=== PATIENT | male | born 1935 | race Caucasian/White ===

== ENCOUNTER → 2017-07-18 14:20 | Outpatient (CLI) | payer MEDICARE, BC, SELFPAY ==
--- NOTE | 2017-07-18 14:26 | RAD_ITS ---
STUDY: X-RAY - LEFT KNEE REASON FOR EXAM: Male, 81 years old. Medial left knee pain. TECHNIQUE: 4 weightbearing view(s) of the knee. COMPARISON: None. 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 There is spurring at the anterior tibial tubercle. Normal visualized proximal fibula. Focal cortical excrescences are seen from the cortical margins of the proximal tibial and fibular diaphyses along the interosseous ligament. Normal patella. There is no demonstrated destructive osseous lesion or acute displaced fracture. There is mild degenerative narrowing of the medial femorotibial compartment compared to the lateral femorotibial compartment. There is chondrocalcinosis in both compartments. A small rounded calcification also seen adjacent to the medial tibial spine. Normal patellofemoral articulation. Normal proximal tibiofibular articulation. There is no demonstrated joint effusion. There is anterior prepatellar soft tissue swelling. Focal cutaneous calcifications seen in the anterior soft tissues of the proximal lower leg. RAD/Knee 4 or More Views IMPRESSION: 1. Anterior prepatellar soft tissue swelling. No demonstrated fracture. 2. 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 3. There is no demonstrated joint effusion. Electronically Signed: Gerson Alaniz MD at 18:20 EDT , Service support ,
--- NOTE | 2017-07-18 14:40 | VDLE_ITS ---
Reason For Study: edema RIGHT LEFT GSV is normal. GSV is normal. CFV is compressible, spontaneous, phasic, CFV is compressible, spontaneous, phasic, competent and demonstrates normal competent, and demonstrates normal augmentation. augmentation. FV is compressible, spontaneous, phasic, FV is compressible, spontaneous, phasic, competent and demonstrates normal competent and demonstrates normal augmentation. augmentation. POP V is compressible, spontaneous, phasic, POP V is compressible, spontaneous, phasic, competent and demonstrates normal competent and demonstrates normal augmentation. augmentation. T/P Trunk is compressible. T/P Trunk is compressible. PTV is compressible. PTV is compressible. RT PerV is compressible. LT PerV is compressible. Procedure Hypoechoic area behind the knee measuring Exam performed in department. 1.52 x 2.97 cm. Area is too large to measure The exam was diagnostic. in long. Area is nonvascular. A preliminary report was called and/or faxed to Dr. Kent. Interpretation Summary Deep veins of the lower extremities are bilaterally patent and compressible segmentally. There is no evidence of deep vein thrombosis on either side. Valvular competence appears intact within the proximal deep venous systems bilaterally. The greater saphenous veins appear bilaterally patent and compressible segmentally. A non-vascular, hypoechoic structure is noted in the left popliteal space, measuring 1.52 cm x 2.97 cm, and too large to measure in length. This probably represents a popliteal cyst. Clinical correlation is advised. Ordering Physician: Cindy Kent Performed By: Cristo Payton RVT
== END ==
PROVIDERS: Family Provider Physician Assistant; PCP Physician Assistant; Visit Provider Internal Medicine
DX: M25.562 Pain in left knee (principal); R60.0 Localized edema
CPT/HCPCS: 73564; 93970

== ENCOUNTER → 2017-07-31 13:35 | Outpatient (CLI) | payer MEDICARE, BC, SELFPAY ==
--- NOTE | 2017-08-02 11:42 | LEAS ---
Arterial Study - Arterial Study Arterial Study: Record number: [id number] Date of scan 07/31/[address] Alicia next History: Hypertension with pain in legs with walking did not do exercise study secondary noncompressibility noted in the vessel. Interpretation: Right lower extremity with pulsatile flow noted from the thigh calf ankle through the digits appears to be an adequate waveform noted duplex shows triphasic flow both vessels at the ankle the ABIs are bilateral noncompressible second a probable medial calcinosis. Digit brachial index 0.89 Left lower extremity again appears to have adequate waveform noted from the thigh down to the calf ankle out through the digits duplex shows triphasic flow both vessels at the ankle with posterior tib noncompressible dorsalis pedis 1.60 but appears probably falsely elevated dorsalis pedis and noncompressible posterior tib secondary to medial calcinosis. Digital brachial index 0.82 Impression: 1. 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 Further evaluation as clinically warranted 2. Possible mild arterial occlusive disease in the left lower extremity the KUSUM 1.6 is falsely elevated probably to the medial calcinosis with noncompressibility of the posterior tib. Duplex does show triphasic flow with an adequate waveform. Digital brachial index appears normal at 0.82. Further evaluation as clinically warranted
== END ==
PROVIDERS: Family Provider Internal Medicine; PCP Internal Medicine; Visit Provider Internal Medicine
DX: I73.9 Peripheral vascular disease, unspecified (principal); R60.0 Localized edema
CPT/HCPCS: 93923

== ENCOUNTER → 2018-08-27 | Outpatient (CLI) | payer MEDICARE, BC, SELFPAY ==
--- NOTE | 2018-08-27 13:33 | STRESSREP_ITS ---
Stress Test Report Exercise stress test. 82-year-old man with a history of chest pain and atrial bigeminy. Stress protocol: Resting EKG demonstrates normal sinus rhythm with a rate of 62 bpm normal intervals are noted resting blood pressures 140/80 mmHg. The patient exercised according to regular Donovan protocol for total duration of 6 minutes and 30 seco nds. The maximum heart rate attained was 127 bpm which was 90% of maximum predicted heart rate the maximum workload was 7.7 metabolic equivalents. The patient maintained sinus rhythm throughout the recording. At rest there were no ST or T wave changes no suggest ischemia at peak exercise upsloping ST changes only were noted with no meet the criteria for ischemia. No chest pain was noted occasional premature ventricular complex only was noted. Resting blood pressures 140/80 mmHg with a peak blood pressure 160/78 mmHg. Exercise stress test with no EKG changes for ischemia at a moderate workload. No clinical angina noted.
== END | disposition home or self-care (01) ==
LOC: CVS 11:41
PROVIDERS: Family Provider Internal Medicine; PCP Internal Medicine; Referring Provider Nurse Practitioner Gerontology; Visit Provider Nurse Practitioner Gerontology
DX: R06.02 Shortness of breath (principal); I49.8 Other specified cardiac arrhythmias
CPT/HCPCS: 93017

== ENCOUNTER → 2018-09-03 | Outpatient (CLI) | payer MEDICARE, BC, SELFPAY ==
[2015-07-30 09:14] VITALS: BMI 28.3
== END | disposition home or self-care (01) ==
LOC: PSN 09:06
PROVIDERS: Family Provider Internal Medicine; PCP Internal Medicine; Referring Provider Nurse Practitioner Gerontology; Visit Provider Nurse Practitioner Gerontology
DX: I49.8 Other specified cardiac arrhythmias (principal)
CPT/HCPCS: 93225; 93226

== ENCOUNTER → 2018-12-12 09:40 | Outpatient (CLI) | payer MEDICARE, BC, SELFPAY ==
[2018-11-14 10:05] VITALS: BMI 31.1
--- NOTE | 2018-12-12 09:42 | ECHOD_ITS ---
Reason For Study: ARRHYTHMIA Procedure This was a 2D Doppler, Color Flow transthoracic echocardiogram. The study was technically difficult. Due to arrhythmia. Exam performed in department. Left Ventricle Based upon the 2D echocardiographic views obtained there appears to be grossly normal left ventricular size, wall motion, and systolic function. The estimated ejection fraction is 55 %. No evidence for diastolic dysfunction. Right Ventricle Normal RV size. Normal systolic function. Atria Normal left atrium. Normal right atrium. Agitated saline contrast study considered positive for right to left intra-atrial shunt compatible with a small PFO versus ASD. Mitral Valve There is no mitral annular calcification. Normal mitral valve. Trivial mitral valve insufficiency. Tricuspid Valve Normal tricuspid valve. Trivial tricuspid valve insufficiency. Right ventricular systolic pressure estimated to be 25 mmHg. Aortic Valve Trisinus/trileaflet aortic valve. Normal aortic valve. Pulmonic Valve The pulmonic valve is not well visualized. Great Vessels Normal sized aortic root. Pericardium/Pleural No pericardial effusion. Medication 22 gauge I.V. with prn adaptor inserted into right arm. Performed a rapid injection of agitated mix of 9 cc saline and 1cc air to assess for atrial septal defect. MMode/2D Measurements & Calculations LVIDd: 5.5 cm IVSd: 1.1 cm Ao root diam: 3.8 cm LVIDs: 3.9 cm LVPWd: 1.0 cm RVDd: 2.8 cm FS: 29.1 % LAV(MOD-bp): 51.7 ml LA A4 area: 16.3 cm2 LA dimension(2D): 4.4 cm LAV(MOD-bp) Indexed: 23.9 ml/m2 LAV(MOD-sp2): 55.0 ml LAV(MOD-sp4): 45.1 ml RA A4 area: 11.4 cm2 Time Measurements MV dec time: 0.32 sec Doppler Measurements & Calculations MV E max rui: 47.2 cm/sec Lat Peak E' Rui: 5.6 cm/sec Med Peak E' Rui: 4.3 cm/sec MV A max rui: 96.0 cm/sec E/E' lat: 8.5 E/E' med: 11.1 MV E/A: 0.49 Ao V2 max: 105.8 cm/sec LV V1 max: 75.0 cm/sec PA V2 max: 125.7 cm/sec Ao max P.5 mmHg LV V1 max P.3 mmHg TR max rui: 236.0 cm/sec TR max P.3 mmHg Interpretation Summary The study was technically difficult. Based upon the 2D echocardiographic views obtained there appears to be grossly normal left ventricular size, wall motion, and systolic function. The estimated ejection fraction is 55 %. Trivial mitral valve insufficiency. Trivial tricuspid valve insufficiency. Right ventricular systolic pressure estimated to be 25 mmHg. No evidence for diastolic dysfunction. Ordering Physician: Elton Yap Referring Physician: Nora Larry Performed By: Estefany Dickinson, VENESSA, RVT
== END ==
PROVIDERS: Family Provider Nurse Practitioner; PCP Nurse Practitioner; Referring Provider Internal Medicine Cardiovascular Disease; Visit Provider Internal Medicine Cardiovascular Disease
DX: I49.49 Other premature depolarization (principal); I10 Essential (primary) hypertension; I73.9 Peripheral vascular disease, unspecified
CPT/HCPCS: 93306; A4216

== ENCOUNTER → 2019-08-05 12:18 | Outpatient (CLI) | payer MEDICARE, BC, SELFPAY ==
[2018-11-14 10:05] VITALS: BMI 31.1
--- NOTE | 2019-08-05 12:26 | RAD_ITS ---
STUDY: X-RAY - RIGHT KNEE REASON FOR EXAM: Male, 83 years old. CHRONIC PAIN TECHNIQUE: 4 view(s) of the knee. COMPARISON: Comparison is made with prior study dated June 30, 2015. FINDINGS: Normal visualized distal femur. Normal visualized proximal tibia and fibula. Normal proximal tibiofibular articulation. There is severe degenerative arthrosis of the medial femorotibial compartment with severe joint space narrowing. Normal lateral femorotibial compartment. There is moderate degenerative arthrosis of the patellofemoral articulation. Chondrocalcinosis of the medial and lateral menisci. There are atherosclerotic calcifications. RAD/Knee 3 Views IMPRESSION: Degenerative arthrosis. 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 Electronically Signed: Otilio Batres, at 15:39 EDT , Service support ,
== END ==
PROVIDERS: PCP Nurse Practitioner; Referring Provider Nurse Practitioner; Visit Provider Nurse Practitioner
DX: M25.561 Pain in right knee (principal)
CPT/HCPCS: 73562

== ENCOUNTER → 2019-10-01 09:35 | Outpatient (CLI) | payer MEDICARE, BC, SELFPAY ==
[2018-11-14 10:05] VITALS: BMI 31.1
--- NOTE | 2019-10-01 09:38 | CDU_ITS ---
Reason For Study: carotid artery stenosis Rt. Velocities/BP Lt. Velocities/BP Prox CCA 56.5/13.4 cm/sec. Prox CCA 78.3/13.5 cm/sec. Mid CCA 36.6/10.2 cm/sec. Mid CCA 54.2/12.4 cm/sec. Dist CCA 38.8/9.1 cm/sec. Dist CCA 59.7/11.3 cm/sec. Prox ICA 49.8/11.3 cm/sec. Prox ICA 42.1/9.1 cm/sec. Mid ICA 37.7/11.3 cm/sec. Mid ICA 32.2/12.4 cm/sec. Dist ICA 47.7/19.3 cm/sec. Dist ICA 62.9/23.4 cm/sec. Rt. ICA/CCA = 1.4. Lt. ICA/CCA = 1.2. Prox ECA 57.5/10.2 cm/sec. Prox ECA 44.3/8.0 cm/sec. Rt. Vert. 38.8/11.3 cm/sec. Lt. Vert. 34.3/9.9 cm/sec. Right Extracranial There is intimal thickening but no significant atherosclerotic plaque noted in the right common carotid artery. There is heterogeneous, irregular atherosclerotic plaque noted in the right internal carotid artery. There is heterogeneous, irregular atherosclerotic plaque noted in the right external carotid artery. Antegrade flow is noted in the right vertebral artery. Left Extracranial There is heterogeneous, irregular atherosclerotic plaque noted in the left common carotid artery. There is heterogeneous, irregular atherosclerotic plaque noted in the left internal carotid artery. There is intimal thickening but no significant atherosclerotic plaque noted in the left external carotid artery. Antegrade flow is noted in the left vertebral artery. Procedure Carotid Duplex [id number]. The exam was diagnostic. Exam performed in department. Interpretation Summary Heterogenous irregular plaque of the proximal right internal carotid artery with less than 50% stenosis <50% stenosis right external carotid Minimal irregular heterogenous plaque in the proximal left internal carotid artery with less than 50% stenosis <50% stenosis left external carotid Patent, antegrade vertebrals bilaterally Ordering Physician: Nora Larry Performed By: Cristo Payton RVT
== END ==
PROVIDERS: PCP Nurse Practitioner; Referring Provider Nurse Practitioner; Visit Provider Nurse Practitioner
DX: I65.23 Occlusion and stenosis of bilateral carotid arteries (principal)
CPT/HCPCS: 93880

== ENCOUNTER → 2020-12-07 10:52 | Outpatient (CLI) | payer MEDICARE, BC, SELFPAY ==
--- NOTE | 2020-12-07 10:56 | VDLE_ITS ---
Reason For Study: RLE PAIN RIGHT LEFT GSV is normal. GSV is normal. CFV is compressible, spontaneous, phasic, CFV is compressible, spontaneous, phasic, competent and demonstrates normal competent, and demonstrates normal augmentation. augmentation. FV is compressible, spontaneous, phasic, FV is compressible, spontaneous, phasic, competent and demonstrates normal competent and demonstrates normal augmentation. augmentation. POP V is compressible, spontaneous, phasic, POP V is compressible, spontaneous, phasic, competent and demonstrates normal competent and demonstrates normal augmentation. augmentation. T/P Trunk is compressible. T/P Trunk is compressible. PTV is compressible. PTV is compressible. RT PerV is compressible. LT PerV is compressible. Procedure This is a venous duplex using B-mode, color flow and spectral Doppler. Exam performed in department. A preliminary report was called and/or faxed to [facility] @ 11:30 am @ [phone]. VL/Venous Duplex US - Angel Extrem Interpretation Summary Deep veins of the lower extremities are bilaterally patent and compressible seg mentally. There is no evidence of deep vein thrombosis on either side. Valvular competence appears in tact within the proximal deep venous systems bilaterally. The great saphenous veins appear bila terally patent and compressible segmentally. Ordering Physician: Nora Larry Referring Physician: Nora Larry Performed By: Estefany Dickinson, RDCS, RVT
--- NOTE | 2020-12-07 11:17 | RAD_ITS ---
STUDY: X-RAY - RIGHT KNEE REASON FOR EXAM: Right knee pain for 2 days. TECHNIQUE: 4 view(s) of the knee. COMPARISON: Radiographs 08/05/2019. FINDINGS: Normal visualized distal femur. Normal visualized proximal tibia and fibula. Normal proximal tibiofibular articulation. There is severe joint space narrowing of the medial femorotibial compartment, increased since the prior study. Normal lateral femorotibial compartment. There is mild joint space narrowing of the patellofemoral articulation. There is chondrocalcinosis. There is vascular calcification. RAD/Knee 4 or More Views IMPRESSION: Arthrosis of the medial femorotibial and patellofemoral compartments. Chondrocalcinosis. Electronically Signed: Oskar Short MD at 12:33 EDT Tel , Service support ,
== END ==
PROVIDERS: PCP Nurse Practitioner; Referring Provider Nurse Practitioner; Visit Provider Nurse Practitioner
DX: M25.561 Pain in right knee (principal); M79.604 Pain in right leg
CPT/HCPCS: 73564; 93970

== ENCOUNTER 2021-06-29 08:46 | Outpatient (CLI) | payer MEDICARE, BC, SELFPAY ==
--- NOTE | 2021-06-29 08:51 | CT_ITS ---
STUDY: CT CHEST WITH CONTRAST REASON FOR EXAM: Male, 85 years old. History of bilateral pneumonia. RADIATION DOSAGE (If Supplied By Facility): CTDIvol = ( 17.22 ) mGy, DLP = ( 751.46 ) mGycm TECHNIQUE: Transaxial imaging was performed following intravenous administration of IV 100mL Isovue-300. Multiplanar coronal and sagittal images were reformatted. Individualized dose optimization techniques were used for this CT. COMPARISON: Comparison is made with prior chest radiograph dated 06/23/2021. FINDINGS: Small benign-appearing bilateral axillary lymph nodes. There is evidence of increased linear markings involving both upper and lower lobes and a preferential lateral distribution with evidence of bronchiectasis more prominent in the right upper lobe. The patient has a history of prior Covid pneumonia. This may represent postpneumonic scarring. There is no demonstrated pleural abnormality. There are calcifications of the coronary arteries. Normal mediastinum. Normal hilar regions. Normal enhanced pulmonary arteries. Normal aorta arch and descending thoracic aorta. There are multi-level degenerative changes of the thoracic spine. Small hiatal hernia. Scattered hepatic cysts. CT/Chest WITH Contrast IMPRESSION: Findings suggestive of a scarring most likely secondary to prior Covid pneumonia. Electronically Signed: Otilio Batres MD at 14:38 EDT ,
== END 2021-06-29 23:59 | disposition home or self-care (01) ==
LOC: CT 08:49
PROVIDERS: PCP Nurse Practitioner; Referring Provider Nurse Practitioner; Visit Provider Nurse Practitioner
DX: R93.89 Abnormal findings on diagnostic imaging of other specified body structures (principal); R91.8 Other nonspecific abnormal finding of lung field
CPT/HCPCS: 71260; Q9967

== ENCOUNTER 2021-09-26 16:21 | Emergency (ER) | payer MEDICARE, BC, SELFPAY ==
[2021-09-26 16:24] VITALS: BP 128/94; PULSE 74; RESP 17; TEMP 36.6; O2SAT 95; BMI 29.4
--- NOTE | 2021-09-26 16:41 | EX.ED.VIS.EY ---
HPI History of Present Illness Chief Complaint: Eye Problem Informant: patient Onset/Context/Timing Location: Right Eye Onset: Today Current Severity: Mild Maximum Severity: Mild Narrative Narrative: Patient presents after being poked in the right eye by a pine tree. He has some mild redness and watering. He does not normally wear glasses or contacts. He denies vision change. [facility] Medical History Atrial bigeminy Essential hypertension Premature atrial contractions PVD (peripheral vascular disease) Sleep apnea Home Medications aspirin 81 mg tablet,delayed release (Adult Low Dose Aspirin) 81 mg PO DAILY 11/09/18 [History Last Taken Unknown] metoprolol succinate 25 mg tablet,extended release 24 hr 25 mg PO DAILY 11/09/18 [History Last Taken Unknown] Allergy/AdvReac Type Severity Reaction Status Date / Time lisinopril AdvReac Severe cough Verified 09/26/21 16:22 Family History Father Emphysema of lung Mother Dena Gehrigs disease Surgical History History of cholecystectomy History of left knee replacement Social History Smoking Status: Never smoker alcohol intake: current details: occasional substance use type: does not use caffeine: Yes Type: coffee Number of servings: 1 ROS ROS ED Constitutional Constitutional ED: Denies chills or fever(s) Eyes Eyes: Reports other Details: Right eye irritation and redness ; Denies change in vision ENT ENT ED: Denies rhinorrhea or sore throat Cardiovascular Cardiovascular: Denies chest pain or palpitations Respiratory/Chest Respiratory/Chest: Denies cough or dyspnea Gastrointestinal Gastrointestinal: Denies abdominal pain, diarrhea, nausea or vomiting Genitourinary Genitourinary ED: Denies difficulty urinating or dysuria Musculoskeletal Musculoskeletal: Denies back pain or extremity pain Integumentary Denies Abrasions or rash Neurologic Neurologic: Denies headache(s) or weakness Allergic/Immunologic Allergic/Immunologic ED: Denies lip swelling or urticaria EXAM Physical Exam Const Vital Signs: 09/26/21 16:24 Temperature 97.8 F Temperature Source Oral Pulse Rate 74 Respiratory Rate 17 Blood Pressure 128/94 H Blood Pressure Mean 105 Pulse Ox 95 Oxygen Delivery Method Room Air Positive well nourished and well developed General Appearance ED: well developed Eyes Eyes Narrative: Right eye injection with mild watering. Pupils equal and reactive. Extraocular movements fully intact. Resp normal respiratory effort and no retractions Cardio regular rate and regular rhythm GI non-tender Extremity normal to inspection Neuro oriented x3 MDM MDM MDM Narrative Medical decision making narrative: Tetracaine drops were applied to the right eye. This does improve the patient's pain. Eye is examined under slit-lamp with no evidence of foreign body. Fluorescein is applied. Patient has a very small uptake noted in the lower outer quadrant of the eye. Patient be covered with gentamicin eyedrops. Return instructions provided. Discharge Plan Triage Chief Complaint: Eye Problem ED Provider: Flaca Livingston Dx/Rx/DC Orders Clinical Impression: Corneal abrasion Instructions: ED Corneal Abrasion Prescriptions: No Action aspirin [Adult Low Dose Aspirin] 81 mg tablet,delayed release (DR/EC) 81 mg PO DAILY metoprolol succinate 25 mg tablet extended release 24 hr 25 mg PO DAILY Primary Care Provider: Cindy Kent Referrals: Cindy Kent DO [Primary Care Provider] - Activity Restrictions/Additional Instructions: As discussed, please use 2 drops of gentamicin 4 times a day in affected eye until symptoms resolved for full 24 hours. Disposition Disposition: Home, Self Care
[2021-09-26] MEDS: Gentamicin Sulfate 1 OPTH.BTL 2 DRP RIGHT EYE (17:10)
[2021-09-26] MEDS: Tetracaine 0.5% Ophthalmic Bottle 1 DRP RIGHT EYE (17:10)
[2021-09-26] MEDS: Fluorescein 1 MG STRIP 1 STRIP RIGHT EYE (17:10)
== END 2021-09-26 17:13 | disposition home or self-care (01) ==
PROVIDERS: Emergency Provider Emergency Medicine; PCP Internal Medicine; Visit Provider Emergency Medicine
DX: S05.01XA Injury of conjunctiva and corneal abrasion without foreign body, right eye, initial encounter (principal); I10 Essential (primary) hypertension; Z79.899 Other long term (current) drug therapy; Z79.82 Long term (current) use of aspirin; W22.8XXA Striking against or struck by other objects, initial encounter
CPT/HCPCS: 99283

== ENCOUNTER 2021-12-27 06:57 | Emergency (ER) | payer MEDICARE, BC, SELFPAY ==
[2021-12-27] VITALS (14 sets, daily range): BP systolic 58–194; BP diastolic 47–99; PULSE 64–84; RESP 16–19; TEMP 35.7–35.9; O2SAT 92–100; BMI 30.2
--- NOTE | 2021-12-27 06:58 | CT_ITS ---
We are attempting to reach an attending provider to discuss findings. An addendum with communication details will be sent when the communication is complete. EXAM: CT HEAD WITHOUT INTRAVENOUS CONTRAST CLINICAL INDICATION: Neuro deficit, acute, stroke suspected TECHNIQUE: Multiple axial images were obtained of the head without intravenous contrast. This CT exam was performed using one or more of the following dose reduction techniques: automated exposure control, adjustment of the mA and/or kV according to patient size, and/or use of iterative reconstruction technique. This report was created using [employer] report [employer] technology. RADIATION DOSE: CTDIvol = 44.99 mGy, DLP = 812.98 mGy-cm. COMPARISON: None. FINDINGS: BRAIN AND EXTRA-AXIAL SPACES: Mild diffuse cerebral volume loss. No intra- or extra-axial hemorrhage. No evidence of acute infarct. No intracranial mass or mass effect. There is preservation of the amaya/white matter interface. Posterior fossa structures are unremarkable. Ventricles are appropriate for age. No hydrocephalus. Basal cisterns are patent. BONES/JOINTS: Unremarkable. No discrete lytic or blastic abnormalities. VASCULATURE: Moderate cavernous and proximal supraclinoid ICA calcifications. SINUSES: Unremarkable as visualized. Clear. MASTOID AIR CELLS: Unremarkable. Clear. ORBITS: Visualized globes, extraocular muscles, optic nerves and retrobulbar fat appear unremarkable. CT/STROKE Brain/Head without Cont IMPRESSION: Hyperdense appearance of left M2 proximal branch at the sylvian fissure, correlate with right-sided weakness. Otherwise no suspicious findings. Electronically Signed: Meera Bolaños MD at 7:15 EDT ,
--- NOTE | 2021-12-27 06:58 | EKG12_ITS ---
Test Reason : POSS STROKE Blood Pressure : / mmHG Vent. Rate : 066 BPM Atrial Rate : 066 BPM P-R Int : 188 ms QRS Dur : 098 ms QT Int : 432 ms P-R-T Axes : 031 -24 -43 degrees QTc Int : 452 ms Normal sinus rhythm Nonspecific ST and T wave abnormality Poor R wave progression Abnormal ECG Confirmed by SINCERE SARGENT, TRAE ([id number]), technical writer and editor GENNARO MONAHAN ([id number]) on 12/29/2021 9:19:55 AM Referred By: STACI Confirmed By:TARE POST MD
--- NOTE | 2021-12-27 06:59 | CT_ITS ---
EXAM: CT ANGIOGRAPHY HEAD AND NECK WITH INTRAVENOUS CONTRAST CLINICAL INDICATION: Neuro deficit, acute, stroke suspected TECHNIQUE: [place]/head and neck CT angiography protocol performed with intravenous contrast. This CT exam was performed using one or more of the following dose reduction techniques: automated exposure control, adjustment of the mA and/or kV according to patient size, and/or use of iterative reconstruction technique. This report was created using [employer] report generation technology. MIP reconstructed images were created and reviewed. RADIATION DOSE: CTDIvol = 24.79 mGy, DLP = 859.26 mGy-cmContrast: IV 100mL [id number] COMPARISON: None. FINDINGS: HEAD: RIGHT ANTERIOR CEREBRAL ARTERY: Unremarkable. No significant stenosis at the visualized segments. Anterior communicating artery is present. No aneurysm. RIGHT MIDDLE CEREBRAL ARTERY: Unremarkable. No significant stenosis at the visualized segments. No aneurysm. RIGHT POSTERIOR CEREBRAL ARTERY: Unremarkable. No occlusion or significant stenosis. No aneurysm. RIGHT INTRACRANIAL INTERNAL CAROTID ARTERY: Peripheral long segmental circumferential calcification of the artery without high-grade stenosis. RIGHT INTRACRANIAL VERTEBRAL ARTERY: Unremarkable. No significant stenosis. No dissection or occlusion. LEFT ANTERIOR CEREBRAL ARTERY: Unremarkable. No significant stenosis at the visualized segments. No aneurysm. LEFT MIDDLE CEREBRAL ARTERY: Abrupt occlusion cut off of contrast in the distal left M1 segment and only a small enhancing inferior left lenticulostriate branches and some slight collateral flow in the mid to posterior left M2 branch in the mid to posterior sylvian fissure. LEFT POSTERIOR CEREBRAL ARTERY: Unremarkable. No occlusion or significant stenosis. No aneurysm. LEFT INTRACRANIAL INTERNAL CAROTID ARTERY: Peripheral calcification without significant narrowing of the cavernous/supraclinoid ICA. LEFT INTRACRANIAL VERTEBRAL ARTERY: Unremarkable. No significant stenosis. No dissection or occlusion. BASILAR ARTERY: Unremarkable. No significant stenosis. No aneurysm. OTHER VASCULATURE: No vascular malformation. NECK: RIGHT COMMON CAROTID ARTERY: Moderate coarse calcified plaque at the carotid bulb with roughly 30% narrowing. RIGHT EXTRACRANIAL INTERNAL CAROTID ARTERY: Calcified plaque at its origin with roughly 30% narrowing. RIGHT EXTERNAL CAROTID ARTERY: Calcified plaque at its origin with no significant narrowing. RIGHT EXTRACRANIAL VERTEBRAL ARTERY: Unremarkable. No significant stenosis. No dissection or occlusion. LEFT COMMON CAROTID ARTERY: Mild calcified plaque at the bulb, no significant narrowing, mild calcified plaque in the mid left CCA. LEFT EXTRACRANIAL INTERNAL CAROTID ARTERY: Mild mixed density plaque of the proximal left ICA, no significant narrowing. LEFT EXTERNAL CAROTID ARTERY: Unremarkable. No occlusion. LEFT EXTRACRANIAL VERTEBRAL ARTERY: Unremarkable. No significant stenosis. No dissection or occlusion. GREAT VESSELS OF AORTIC ARCH: Unremarkable as visualized. Normal anatomy, patent. LUNG APICES: Unremarkable as visualized. HEAD and NECK: BONES/JOINTS: Unremarkable. No discrete lytic or blastic abnormalities. SOFT TISSUES: Unremarkable. CAROTID STENOSIS REFERENCE USING NASCET CRITERIA: % ICA stenosis = (1 - narrowest ICA diameter/diameter of distal cervical ICA) x 100. Mild - <50% stenosis. Moderate - 50-69% stenosis. Severe - 70-94% stenosis. Near occlusion - 95-99% stenosis. Occluded - 100% stenosis. CT/STROKE CTA Head AND Neck W/Con IMPRESSION: Abrupt occlusion of the distal left M1 segment proximal to the M2 bifurcation. Presumed thrombus. Mild collateral flow in the M2 branches. No high-grade stenosis in the neck. Moderate plaque. Findings were discussed with the referring physician prior to completion of the dictation. N.B. : The above Results were Read Back by Meera Bolaños MD to , AA, and understanding confirmed on 12/27/2021 07:33:26 (ET). Electronically Signed: Meera Bolaños MD at 7:37 EDT ,
[2021-12-27] MEDS: Etomidate 20 MG/10 ML Vial IV (07:11)
[2021-12-27] MEDS: Rocuronium Bromide 50 MG/5 ML Vial IV (07:12)
--- NOTE | 2021-12-27 07:17 | NURSING ---
STROKE ALERT CALLED [phone]
[2021-12-27] MEDS: Propofol 10MG/Ml 1,000 MG/100 ML Bottle 5.7 MG CONT INF (07:18)
[2021-12-27] MEDS: Labetalol (Prefilled) 20 MG/4 ML IV (07:20)
[2021-12-27] MEDS: Propofol 200 MG/20 ML Vial 60 MG IV BOLUS (07:21)
--- NOTE | 2021-12-27 07:21 | EDS_ITS ---
HPI History of Present Illness Chief Complaint: Neuro S/Sx Detail of Chief Complaint: Nonverbal, eyes deviated to the left, not using right upper extremity Informant: family and EMS Onset/Context/Timing Onset: Hours (0530) Context: Sudden Onset Timing: Continuous Quality and Location: Positive for Right Arm Weakness, Right Leg Weakness and Expressive Aphasia Onset: 05 Current Severity: Severe Maximum Severity: Severe Worsened by: Nothing Relieved by: Not Narrative Narrative: Patient is an 86-year-old male with history of hypertension who collapsed at 0530. He awoke from sleep at 0500. He awoke with no deficits. He apparently fell. He was thrashing. Upon arrival patient is nonverbal. Eyes are deviated to the left. He is not using his right upper extremity. Concern patient has an intracranial hemorrhage or a large occlusive stroke. Patient was taken immediately to radiology suite for CT and CTA of the head and neck. CT of the head did not reveal hemorrhage. tPA was ordered. Consent was obtained from son. He understands risk benefits. Prior similar symptoms: No Recent Illness/Hospitalization: No PFSH PFSH Medical History Atrial bigeminy Essential hypertension Premature atrial contractions PVD (peripheral vascular disease) Sleep apnea Home Medications aspirin 81 mg tablet,delayed release (Adult Low Dose Aspirin) 81 mg PO DAILY 11/09/18 [History Last Taken Unknown] metoprolol succinate 25 mg tablet,extended release 24 hr 25 mg PO DAILY 11/09/18 [History Last Taken Unknown] Allergy/AdvReac Type Severity Reaction Status Date / Time lisinopril AdvReac Severe cough Verified 12/27/21 07:29 Family History Father Emphysema of lung Mother Dena Gehrigs disease Surgical History History of cholecystectomy History of left knee replacement Social History (Updated 12/27/21 @ 07:[address] Adam Grant MD) household members: spouse Smoking Status: Never smoker alcohol intake: current details: occasional substance use type: does not use caffeine: Yes Type: coffee Number of servings: 1 ROS ROS ED Review of Systems ROS Unobtainable: due to mental status EXAM Physical Exam Const Vital Signs: 12/27/21 07:12 12/27/21 07:14 12/27/21 07:19 Temperature Temperature Source Pulse Rate 70 Respiratory Rate 18 Respiratory Depth Blood Pressure 194/99 H Blood Pressure Mean 130 Blood Pressure Source Blood Pressure Position Blood Pressure Location Pulse Ox 97 100 Oxygen Delivery Method Room Air Ambu-Bag Oxygen Flow Rate (L/min) 15 Fraction of Inspired Oxygen (FIO2) 12/27/21 07:23 12/27/21 07:15 12/27/21 07:33 Temperature 96.3 F L Temperature Source Core Pulse Rate 66 70 Respiratory Rate 16 16 Respiratory Depth Blood Pressure 122/69 H 194/99 H 58/47 L Blood Pressure Mean 130 50 Blood Pressure Source Monitor Monitor Blood Pressure Position Supine Supine Blood Pressure Location Right Arm Right Arm Pulse Ox 95 94 Oxygen Delivery Method Room Air Mechanical Ventilator Oxygen Flow Rate (L/min) Fraction of Inspired Oxygen (FIO2) 40 12/27/21 07:39 12/27/21 07:45 12/27/21 07:46 Temperature 96.5 F L 96.6 F L Temperature Source Temporal Core Pulse Rate 68 Respiratory Rate 16 Respiratory Depth Normal Blood Pressure 98/65 Blood Pressure Mean 76 Blood Pressure Source Monitor Blood Pressure Position Supine Blood Pressure Location Right Arm Pulse Ox 94 95 Oxygen Delivery Method Mechanical Ventilator Mechanical Ventilator Oxygen Flow Rate (L/min) Fraction of Inspired Oxygen (FIO2) 40 12/27/21 07:50 12/27/21 07:55 12/27/21 08:03 Temperature 96.6 F L 96.5 F L 96.3 F L Temperature Source Core Core Core Pulse Rate 65 66 66 Respiratory Rate 16 16 19 H Respiratory Depth Blood Pressure 105/77 149/90 H 165/84 H Blood Pressure Mean 86 109 111 Blood Pressure Source Monitor Monitor Monitor Blood Pressure Position Supine Supine Supine Blood Pressure Location Right Arm Right Arm Right Arm Pulse Ox 96 97 98 Oxygen Delivery Method Mechanical Ventilator Mechanical Ventilator Mechanical Ventilator Oxygen Flow Rate (L/min) Fraction of Inspired Oxygen (FIO2) 40 40 40 Positive well nourished, well developed and obese Constitutional Narrative: Patient is drooling. His eyes are deviated to the left. He turns to the left. There is no movement right upper extremity to noxious stimuli. He attempts to move his right lower extremity. He does withdraw to noxious stimuli on the left. In the radiology suite patient was noted to have Jovon-Peoples respiration. General Appearance ED: well developed; Negative for NAD Nutritional Appearance: obese HEENT Reports moist mucous membranes atraumatic Nose: other Other Details: Ears normal. Nares patent. Teeth normal. Uvula midline. Eyes Negative for PERRL or EOMs intact bilaterally Eyes Narrative: Pupils 1 to 2 mm size. Eyes deviated to the left. There is nystagmus noted with fast component to the right. Nystagmus horizontal. Neck no lymphadenopathy, supple and no JVD Chest Wall inspection of chest normal and palpation of chest normal Resp normal respiratory effort and clear to auscultation bilaterally Cardio no murmurs Rate: regular rate Rhythm: regular rhythm Heart Sounds: S1 normal and S2 normal GI normal to inspection, nondistended, normoactive bowel sounds, soft to palpation, non-distended and no masses Narrative: Normal external genitalia Back/Spine Back/Spine Narrative: Normal inspection Extremity normal to inspection Neuro No oriented x3, No CN's II-XII intact bilaterally and No no sensory deficits noted Neuro Narrative: Bilateral Babinski sign. [place] Coma Scale: document GCS findings None Withdraws to Pain None 6 Gait (Neuro): Negative for normal gait Psych Psych Narrative: Unable to assess Skin no wounds General Skin Exam: Negative for jaundice Lesions: no lesions Rashes: no rashes NIHSS NIHSS Initial: 1a Level of Consciousness: 3 1b LOC Questions (Score 2 if aphasic/stupor): 2 1c LOC Commands (Only score 1st attempt): 2 2 Best Gaze (If aphasic, use reflexive mvmts.): 2 3 Visual: 0 4 Facial Palsy: 1 5 Motor Arm Right (UN = amputation/fusion): 0 5 Motor Arm Left: 0 6 Motor Leg Right: 3 6 Motor Leg Left: 0 7 Limb ataxia (Only + if out of proportion): UN 8 Sensory (Aphasia/stupor=0 or 1, coma=2): 2 9 Best Language: 3 10 Dysarthria (mute, coma=2, intubated=UN): 2 Total Score: 20 MDM [facility] Lab Data Attestation: I reviewed the patient's lab results. Lab results narrative: Patient arrived nonverbal with eyes deviated to the left. Head was turned to the left. There is no movement left upper extremity. Patient was taken straight from ambulance bay to radiology suite. CT without contrast revealed no bleed. tPA was ordered. Discussed case with Dr. Baca who informed me that patient has a dense lesion in the left M1 distribution. Agrees with ordering tPA. Spoke with transfer nurse who accepted patient. The ER physician excepting is Dr. Alford. Patient's initial blood pressure was elevated. Patient's pressure improved after labetalol and propofol. He was placed on a propofol drip since he was chemically paralyzed. Since he had a drop in blood pressure fluid bolus was administered. Spoke with Irasema Gerber. They informed us ETA is 20 minutes. Patient propofol drip was discontinued since his blood pressure remained low on repeat reading. Liter of normal saline was ordered. At 0742 blood pressure 65/50. Levophed drip was ordered. Son was informed of the CTA results and present concerns. Blood pressure at 0745 is 98/65. Systolic blood pressure at 0755 is 149. Patient has minimal agitation at this time. A fentanyl drip was ordered. Laboratory studies are unremarkable. Labs: Laboratory Results - last 24 hr 12/27/21 12/27/21 06:48 06:48 WBC 8.5 RBC 4.59 L Hgb 15.1 Hct 44.5 MCV 96.9 H MCH 32.9 H MCHC 33.9 RDW Std Deviation 47.2 H RDW Coeff of Anny 13.3 Plt Count 216 MPV 9.7 Immature Gran % (Auto) 0.900 Neut % (Auto) 45.9 L Lymph % (Auto) 40.8 [place] % (Auto) 9.2 Eos % (Auto) 2.6 Baso % (Auto) 0.6 Absolute Neuts (auto) 3.9 Absolute Lymphs (auto) 3.45 Nucleated RBC % 0 Sodium 139 Potassium 3.5 Chloride 105 Carbon Dioxide 25.0 Anion Gap 9 BUN 25 H Creatinine 0.85 Estim Creat Clear Calc 66.80 Est GFR (MDRD) Af Amer 111 Est GFR (MDRD) Non-Af 92 BUN/Creatinine Ratio 29.5 H Glucose 180 H Calcium 8.9 Troponin I High Sens 6 Radiography Diagnostic Testing: Clinical Impression(s) from Imaging Studies Brain CT 12/27/21 06:58 IMPRESSION: Hyperdense appearance of left M2 proximal branch at the sylvian fissure, correlate with right-sided weakness. Otherwise no suspicious findings. Electronically Signed: Meera Bolaños MD at 7:15 EDT , ADDENDUM: 12/27/21 0725 IMPRESSION: undefined Head/Neck CTA 12/27/21 06:59 IMPRESSION: Abrupt occlusion of the distal left M1 segment proximal to the M2 bifurcation. Presumed thrombus. Mild collateral flow in the M2 branches. No high-grade stenosis in the neck. Moderate plaque. Findings were discussed with the referring physician prior to completion of the dictation. N.B. : The above Results were Read Back by Meera Bolaños MD to , AA, and understanding confirmed on 12/27/2021 07:33:26 (ET). Electronically Signed: Meera Bolaños MD at 7:37 EDT , ADDENDUM: 12/27/21 0744 IMPRESSION: Abrupt occlusion of the distal left M1 segment proximal to the M2 bifurcation. Presumed thrombus. Mild collateral flow in the M2 branches. No high-grade stenosis in the neck. Moderate plaque. Findings were discussed with the referring physician prior to completion of the dictation. N.B. : The above Results were Read Back by Meera Bolaños MD to , AA, and understanding confirmed on 12/27/2021 07:33:26 (ET). Electronically Signed: Meera Bolaños MD at 7:37 EDT , ADDENDUM: 12/27/21 0749 IMPRESSION: undefined EKG Initial EKG: Attestation: I personally reviewed and interpreted this EKG as follows: Interpretation: Sinus Rhythm (Ventricular rate is 66. NM interval is 108 ms. QS duration 98 ms. QT duration 432 ms. [place] is normal. There is artifact which the computer is reading as ST and T wave abnormality.) Prior EKG tracings: not available for review Stroke Documentation Questions Stroke Team Activated: Yes Reviewed Inclusion/Exclusion criteria: Yes Was Patient considered for Endovascular Intervention?: Yes-CTA +,PT transferred for further eval of endovascular intervention IV Alteplase (t-PA) Administered: Yes No contraindications for IV Alteplase (t-PA) administration.: Yes Alteplase (t-PA) risks, benefits, alternative discussed: Yes Procedures Intubations Intubation Method: orotracheal (Patient received 20 mg of etomidate. Patient's jaw remained clutch. He was administered 50 mg of rocuronium. He was easily orotracheal intubated with a 7.5 endotracheal tube using glide scope on first attempt. There was appropriate color change.) Intubation Verification: Positive color change and Bilateral breath sounds confirmed Intubation Complications: no complications Other Procedures Procedure(s): 1. Singh per nursing staff 2. Second IV per nursing staff 3. Orogastric tube per nursing staff Critical Care Time Critical Care Time: Yes Critical care time (excluding procedures): 30-74 minutes (32 minutes), Including time spent: (History, physical, documentation, review of prior records, review of allergies, bedside care), Discussing w/Patient &/or Family/Geopolitics Teacher, Discussing w/Consultants (Dr. 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
[2021-12-27 07:22] LABS: Absolute Lymphocyte Count 3.45 X10^3/uL (0.83-4.51); Absolute Neutrophil Count 3.9 X10^3/uL (2.0-7.7); Basophil# 0.05 X10^3/uL; Basophil% 0.6 % (0-1); Eosinophil# 0.22 X10^3/uL; Eosinophils% 2.6 % (0-5); Hematocrit 44.5 % (40-54); Hemoglobin 15.1 g/dL (13.0-16.5); Lymphocyte # 3.45 X10^3/ul (0.83-4.51); Lymphocyte % 40.8 % (19-41); Mean Corp Hgb Conc 33.9 g/dL (32-36); Mean Corpuscular Hgb 32.9 pg (27.0-32.0); Mean Corpuscular Volume 96.9 fL (80-94); Mean Platelet Vol. 9.7 fl (6.2-12.0); Monocyte# 0.78 X10^3/uL; Monocyte% 9.2 % (0-10); NRBC Flagged by Analyzer 0 % (0-5); Neutrophil # 3.88 X10^3/uL (2.7-7.7); Neutrophil % 45.9 % (47-70); Platelet Count 216 K/mm3 (150-450); RBC Distribution Width CV 13.3 % (11.6-14.6); RBC Distribution Width SD 47.2 fl (35.1-43.9); Red Blood Count 4.59 M/mm3 (4.6-6.2); White Blood Count 8.5 K/mm3 (4.4-11.0)
--- NOTE | 2021-12-27 07:24 | NURSING ---
ETA 20 TO 25
[2021-12-27] MEDS: 0.9% Normal Saline 1,000 ML 999 ML IV (07:26)
[2021-12-27 07:36] LABS: Anion Gap 9 (5-15); BUN 25 mg/dL (7-18); BUN/Creat Ratio 29.5 RATIO (10-20); Calcium,Total 8.9 mg/dL (8.5-10.1); Chloride 105 mmol/L (98-107); Creatinine, Serum 0.85 mg/dL (0.70-1.30); EST Glomerular Filtration Rate 92 mL/min (>60); Est Glom Filt Rate - Afr Amer 111 mL/min (>60); Glucose 180 mg/dL (74-106); Potassium 3.5 mmol/L (3.5-5.1); Sodium Level 139 mmol/L (136-145); Troponin-I HS 6 pg/mL (3.0-78.0)
[2021-12-27] MEDS: Glucagon 1 MG/ML Syringe IV (07:41)
--- NOTE | 2021-12-27 07:52 | ED.RN ---
ORIGINAL BLOOD PRESSURE CONTROL DR. OCASIO WANTED BOLUS OF 60 MG PROPOFOL AND THEN GIVE LABETAOLOL
--- NOTE | 2021-12-27 08:03 | ED.RN ---
[facility] AT THE BEDSIDE AND ASSUMING CARE AT THIS TIME
[2021-12-27 08:16] LABS: International Normalized Ratio 1.1
[2021-12-27 08:17] LABS: Partial Thromboplast Time 29.1 Seconds (24.1-36.2)
[2021-12-27 08:34] LABS: CPK Total, Creatine Kinase 72 U/L (39-308); Triglycerides 107 mg/dL
== END 2021-12-27 08:29 | disposition short-term general hospital (02) ==
PROVIDERS: Emergency Provider Emergency Medicine; PCP Internal Medicine; Visit Provider Emergency Medicine
DX: I63.512 Cerebral infarction due to unspecified occlusion or stenosis of left middle cerebral artery (principal); I73.9 Peripheral vascular disease, unspecified; I10 Essential (primary) hypertension; G47.30 Sleep apnea, unspecified; Z79.899 Other long term (current) drug therapy; Z79.82 Long term (current) use of aspirin; R29.720 NIHSS score 20
CPT/HCPCS: 31500; 51702; 70450; 70496; 70498; 80048; 82550; 84478; 84484; 85025; 85610; 85730; 87811; 93005; 94002; 96365; 96368; 96375; 99251; 99285; J2997; J7030; J7050; Q9967; A4216; G0463; J1610; J3010; J3490

== ENCOUNTER 2022-01-13 14:00 | Inpatient (IN) | payer MEDICARE, BC, SELFPAY ==
[2022-01-13 14:40] VITALS: BMI 25.8
[2022-01-13 16:46] VITALS: BP 113/74; PULSE 86; RESP 18; TEMP 36.5; O2SAT 93
[2022-01-13] MEDS: FLU VACC QS2022-23(6MOS UP)/PF 60 MCG/0.5 ML SYRINGE IM (17:22)
[2022-01-13 17:52] VITALS: O2SAT 99
[2022-01-13 17:58] VITALS: BMI 25.8
[2022-01-13] MEDS: Budesonide Respules 0.5 MG/2 ML AMPUL.NEB. INHALATION (19:40)
[2022-01-13 19:43] VITALS: PULSE 89; RESP 16; O2SAT 98
[2022-01-13 21:54] VITALS: BP 128/76; PULSE 98; RESP 18; TEMP 37.2; O2SAT 93
[2022-01-13] MEDS: Jevity 1.5. 1,000 ML Bottle 336 ML GT (21:58)
[2022-01-13 21:59] VITALS: BP 128/76; PULSE 98
[2022-01-13] MEDS: Atorvastatin Calcium 40 MG Tablet GT (21:59)
[2022-01-13] MEDS: Metoprolol Tartrate 25 MG Tablet GT (21:59)
[2022-01-13] MEDS: Doxazosin 4 MG Tablet 2 MG GT (21:59)
[2022-01-13] MEDS: Pantoprazole Sodium 40 MG Tablet PO (21:59)
[2022-01-13 22:00] VITALS: O2SAT 89
--- NOTE | 2022-01-13 22:38 | NURSING ---
Bladder scan showed 509ml, pt given and assisted with urinal, unable to void, straight cathed for 550ml dark jesusita urine. Pt tolerated well, will continue to monitor.
[2022-01-14] VITALS (8 sets, daily range): BP systolic 88–139; BP diastolic 48–82; PULSE 59–119; RESP 18–20; TEMP 36.8–37; O2SAT 93–97; BMI 25.8
[2022-01-14] MEDS: Jevity 1.5. 1,000 ML Bottle 336 ML GT ×5 (02:37→21:49)
[2022-01-14 05:55] LABS: Absolute Lymphocyte Count 2.52 X10^3/uL (0.83-4.51); Basophil# 0.06 X10^3/uL; Basophil% 0.5 % (0-1); Eosinophil# 0.19 X10^3/uL; Eosinophils% 1.5 % (0-5); Hematocrit 39.8 % (40-54); Hemoglobin 13.8 g/dL (13.0-16.5); Lymphocyte # 2.52 X10^3/ul (0.83-4.51); Lymphocyte % 19.4 % (19-41); Mean Corp Hgb Conc 34.7 g/dL (32-36); Mean Corpuscular Hgb 34.5 pg (27.0-32.0); Mean Corpuscular Volume 99.5 fL (80-94); Mean Platelet Vol. 9.8 fl (6.2-12.0); Monocyte# 1.02 X10^3/uL; Monocyte% 7.9 % (0-10); NRBC Flagged by Analyzer 0 % (0-5); Neutrophil % 69.4 % (47-70); Platelet Count 264 K/mm3 (150-450); RBC Distribution Width CV 12.9 % (11.6-14.6); RBC Distribution Width SD 47.3 fl (35.1-43.9)
[2022-01-14 06:26] LABS: ALB/GLOB Ratio 0.6 RATIO (0.9-2.4); AST(SGOT) 24 U/L (15-37); Alanine Aminotransfer ALT/SGPT 43 U/L (16-61); Albumin, Serum 2.2 g/dL (3.2-5.0); Alkaline Phosphatase 75 U/L (45-117); Anion Gap 7 (5-15); BUN 30 mg/dL (7-18); BUN/Creat Ratio 39.8 RATIO (10-20); Calcium,Total 7.8 mg/dL (8.5-10.1); Chloride 103 mmol/L (98-107); Creatinine, Serum 0.75 mg/dL (0.70-1.30); EST Glomerular Filtration Rate 105 mL/min (>60); Est Glom Filt Rate - Afr Amer 127 mL/min (>60); Estimated Creatinine Clearance 60.36 ml/min; Globulin 3.5 g/dL (2.2-4.2); Glucose 230 mg/dL (74-106); Magnesium 2.4 mg/dL (1.6-2.6); Phosphorus 2.7 mg/dL (2.5-4.9); Potassium 3.8 mmol/L (3.5-5.1); Protein, Total 5.7 g/dL (6.4-8.2); Sodium Level 137 mmol/L (136-145)
[2022-01-14] MEDS: Budesonide Respules 0.5 MG/2 ML AMPUL.NEB. INHALATION (07:25)
[2022-01-14] MEDS: Aspirin 81 MG TAB.CHEW GT (08:24)
[2022-01-14] MEDS: Doxazosin 4 MG Tablet 2 MG GT ×2 (08:24→21:44)
[2022-01-14] MEDS: Metoprolol Tartrate 25 MG Tablet GT ×2 (08:25→22:06)
[2022-01-14] MEDS: hydroCHLOROthiazide 12.5mg 12.5 MG GT (08:25)
--- NOTE | 2022-01-14 10:43 | CASEMGMT ---
Social Work Pt unable to complete assessment. Left message with . Dione Mcneill, BONE DRIER OPERATOR MANAGER OF PRODUCTION
--- NOTE | 2022-01-14 14:42 | HP.PCM_ITS ---
[facility] - General General Date of Admission: 01/13/22 Date of Service: 01/14/22 Chief Complaint: Debility due to ischemic CVA. HPI Narrative CURTIS العراقي, is a 86 YO M with a past medical history of hypertension, hyperlipidemia, peripheral vascular disease, atrial bigeminy, sleep apnea (he refuses CPAP) and premature atrial contractions. Mr. العراقي presented to the emergency department at [facility] on 12/27/2021 with right upper extremity weakness, aphasia and eyes deviated to the left. The initial NIH score was 20. Stat noncontrast CT of the brain showed no acute findings. CTA of the head and neck showed proximal occlusion of the distal left M1 segment proximal to the M2 bifurcation. There was presumed thrombus. There was no high-grade stenosis in the neck but he did have moderate plaque. Teleneurology was consulted and tPA was recommended and given. He was transferred to [facility] for large vessel occlusion and possible neuroradiology intervention to remove the thrombus. Upon arrival to [facility] his NIH was 28. A stat CT head showed early hypoattenuation in the left insula. He went directly to the OR for intervention and achieved TICI 2c revascularization. A CT head 24 hours following tPA showed an evolving infarct in the left MCA distribution now involving the majority of the parenchyma in a vascular distribution. He also had some hemorrhagic transformation. CTA of the head/neck on 12/30/2021 showed no significant stenosis of the major arteries of the brain and neck. The previously occluded left M1 MCA segment was now patent. Echocardiogram was done at [facility] and showed a normal EF at 55 to 60%. There was no thrombus noted and no significant valvular heart disease. His LDL was 98 and the hemoglobin A1c was 5.8. EEG on 12 31 was negative for seizure activity. He had a FEES that showed vocal cord adduction with minimal glottic space. No acute intervention by ENT was required. He had persistent severe dysphagia and failed his MBS. PEG tube was placed on 01/11/2022. He was evaluated by PT/OT/ST and transfer to inpatient rehab was recommended. On 01/13/2022 he was transferred to the acute inpatient rehab unit at [facility] for 3 hours of therapy daily to restore f unction/independence at or near his level prior to the stroke. While at [facility] he experienced urine retention and was started on doxazosin 2 mg on 12/30/2021. He also had a trial of CPAP at [facility] and failed to tolerate. 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 All paperwork from [facility] was reviewed personally. Blood pressure is adequately controlled. Heart rate is within normal limits. He is afebrile. He is 89 to 99% saturated on room air. Medication list was reviewed. All lab from today was personally reviewed. The white blood cell count is elevated at 13,000 and he has 69.4% neutrophils with 1.3% immature granulocytes. Hemoglobin is normal at 13.8 and the MCV is 99.5. Platelets are within normal limits. Sodium is normal and the potassium is 3.8. The BUN is elevated at 30 with a creatinine of 0.75. The BUN/creatinine ratio is elevated at 39.8. Calcium is low at 7.8 but is within normal limits when corrected for hypoalbuminemia. Magnesium is 2.4 and the liver enzymes are within normal limits. He has had 1 post void residual since arriving at rehab and it was 0. [facility] Medical History (Updated 01/14/22 @ 15:[address] Nora Fuentes, ) Atrial bigeminy Essential hypertension Premature atrial contractions PVD (peripheral vascular disease) Sleep apnea Home Medications aspirin 81 mg chewable tablet 81 mg PO DAILY heart health 01/13/22 [History Last Taken Unknown] atorvastatin 40 mg tablet 40 mg feeding tube QHS cholesterol 01/13/22 [History Last Taken Unknown] budesonide 0.5 mg/2 mL suspension for nebulization 0.5 mg inhalation BID wheezing/sob 01/13/22 [History Last Taken Unknown] doxazosin 2 mg tablet (Cardura) 2 mg feeding tube BID BP 01/13/22 [History Last Taken Unknown] esomeprazole magnesium 40 mg granules delayed release for susp (Nexium Packet) 40 mg PO QHS heartburn 01/13/22 [History Last Taken Unknown] hydrochlorothiazide 12.5 mg tablet 12.5 mg PO DAILY BP 01/13/22 [History Last Taken Unknown] metoprolol tartrate 25 mg tablet 25 mg PO BID BP 01/13/22 [History Last Taken Unknown] polyethylene glycol 3350 17 gram oral powder packet (Miralax) 17 g PO BID PRN PRN Constipation 01/13/22 [History Last Taken Unknown] Allergy/AdvReac Type Severity Reaction Status Date / Time lisinopril AdvReac Severe cough Verified 12/27/21 07:29 Family History Father Emphysema of lung Mother Dena Gehrigs disease Surgical History History of cholecystectomy History of left knee replacement Social History household members: spouse Smoking Status: Never smoker alcohol intake: current details: occasional substance use type: does not use caffeine: Yes Type: coffee Number of servings: 1 ROS Review of Systems ROS Unobtainable: other Details: due to expressive aphasia and there is no family present to assist me with hx. I reviewed Dr. Yap's consult for dysrhythmia in 2019. At that time he had PACs and PVCs with minimal PVCs and mostly PACs. Vital Signs Vital Signs Vital Signs: 01/13/22 16:46 01/13/22 17:52 01/13/22 19:43 Temperature 97.7 F L Temperature Source Temporal Pulse Rate 86 89 Pulse Strength Respiratory Rate 18 16 Respiratory Effort Respiratory Depth Respiratory Pattern Blood Pressure 113/74 Blood Pressure Mean 87 Blood Pressure Source Monitor Blood Pressure Position Semi-Fowlers Blood Pressure Location Left Arm Pulse Ox 93 99 Oxygen Delivery Method Room Air Room Air Oxygen Flow Rate (L/min) 01/13/22 19:43 01/13/22 21:54 01/13/22 21:54 Temperature 98.9 F Temperature Source Temporal Pulse Rate 98 Pulse Strength Normal (2+) Respiratory Rate 18 Respiratory Effort Respiratory Depth Respiratory Pattern Blood Pressure 128/76 H Blood Pressure Mean 93 Blood Pressure Source Monitor Blood Pressure Position Semi-Fowlers Blood Pressure Location Left Arm Pulse Ox 98 93 Oxygen Delivery Method Room Air Nasal Cannula Oxygen Flow Rate (L/min) 2 01/13/22 21:59 01/13/22 22:00 01/14/22 07:49 Temperature 98.6 F Temperature Source Temporal Pulse Rate 98 91 Pulse Strength Respiratory Rate 20 H Respiratory Effort Normal Non-Labored Respiratory Depth Normal Respiratory Pattern Normal Blood Pressure 128/76 H 130/76 H Blood Pressure Mean 94 Blood Pressure Source Monitor Blood Pressure Position Semi-Fowlers Blood Pressure Location Left Arm Pulse Ox 89 94 Oxygen Delivery Method Room Air Nasal Cannula Oxygen Flow Rate (L/min) 2 01/14/22 08:25 01/14/22 09:03 01/14/22 07:25 Temperature Temperature Source Pulse Rate 85 88 Pulse Strength Respiratory Rate 18 Respiratory Effort Respiratory Depth Respiratory Pattern Blood Pressure 139/77 H Blood Pressure Mean Blood Pressure Source Blood Pressure Position Blood Pressure Location Pulse Ox Oxygen Delivery Method Oxygen Flow Rate (L/min) 2 01/14/22 07:25 01/14/22 10:00 01/14/22 10:00 Temperature Temperature Source Pulse Rate Pulse Strength Normal (2+) Respiratory Rate Respiratory Effort Normal Non-Labored Respiratory Depth Normal Respiratory Pattern Normal Blood Pressure Blood Pressure Mean Blood Pressure Source Blood Pressure Position Blood Pressure Location Pulse Ox 93 Oxygen Delivery Method Nasal Cannula Oxygen Flow Rate (L/min) 2 Weight Weight: 190 lb 11.198 oz Body Mass Index (BMI) 25.8 Indicators for Scoring Admitted with or Primary Diagnosis of CVA/Stroke: Yes Hx of CVA/Stroke: Yes Modified Hannah Score MRS Score at time of Evaluation: 4-Moderate/severe disability NIHSS NIHSS 1a. Level of Consciousness: Not alert; (difficult to arouse and keep awake during the exam) 1b. LOC Questions: Answers neither question correctly. 1c. LOC Commands: Performs neither task correctly. (He has severe expressive and receptive aphasia and I do not think he understands the commands. He will mimic me) 2. Best Gaze: Normal 3. Visual: No visual loss 4. Facial Palsy: Minor paralysis (flattened nasolabial fold, asymmetry on smiling) (Mild R facial droop) 5a. Left Arm: No drift; arm holds 90 (or 45) degrees for full 10 seconds 5b. Right Arm: Drift; arm drifts downward but doesn?t hit the bed 6a. Left Leg: Some effort against gravity; (He will not hold his leg up when I raise it.....he did grimace so he may be having pain. He has had a Left knee surgery in the past and seems to be having L hip pain. He did lift his left leg when I did not ask him to. ) 6b. Right Leg: No drift; leg holds 30-degree position for full 5 seconds 7. Limb Ataxia: Absent 9. Best Language: Severe aphasia; (He was able to say thank you very clearly but I can not understand him when he tries to speak otherwise) 10. Dysarthria: Severe dysarthria; Total: 13 Stroke Questions Stroke Team Activated: No Physical Exam Const Constitutional Narrative: Very drowsy and difficult to arouse from sleep with calling his name and shaking him. He was cooperative when I finally got him awake. He does not appear to be in any distress. He was cooperative with therapy today. General Appearance: well developed HEENT normocephalic HEENT Narrative: Very dry mucous membranes. Eyes PERRL and EOMs intact bilaterally Eyes Narrative: He will follow me around the room with his eyes when I walk from one side of the bed to the other. The conjunctiva is injected with no DC and no mattering of the eyelids. He has no scleral icterus. Neck supple, no JVD, No nodes and no carotid bruits General: trachea midline Resp normal respiratory effort and clear to auscultation bilaterally Resp Narrative: While he was sleeping he had some crescendo/decrescendo breathing. Cardio regular rate, regular rhythm, S1 normal heart sound, S2 normal heart sound, no murmurs, no rub and no gallops GI normal to inspection, nondistended, normoactive bowel sounds, soft to palpation and non-tender GI Narrative: no masses. The PEG site is without erythema and there is no purulent DC. Extremity Extremity Narrative: Pulses in the left foot are diminished but the left popliteal pulse is 3/3 General Extremity: Negative for clubbing, cyanosis or edema Skin General Skin Exam: no breakdown Rashes: no rashes Neuro Neuro Narrative: R facial droop - mild. R side weakness, arm>leg. Some drift with the R arm. No ataxia, tongue protrudes on the midline. visual rao are intact to confrontation. severe expressive aphasia with receptive aphasia/apraxia Results Lab / Micro Data Result Diagrams: 01/14/22 05:37 01/14/22 05:37 Labs: Laboratory Results - last 24 hr 01/14/22 05:37: WBC 13.0 H, RBC 4.00 L, Hgb 13.8, Hct 39.8 L, MCV 99.5 H, MCH 34.5 H, MCHC 34.7, RDW Std Deviation 47.3 H, RDW Coeff of Anny 12.9, Plt Count 264, MPV 9.8, Immature Gran % (Auto) 1.300 H, Neut % (Auto) 69.4, Lymph % (Auto) 19.4, [place] % (Auto) 7.9, Eos % (Auto) 1.5, Baso % (Auto) 0.5, Absolute Neuts (auto) 9.0 H, Absolute Lymphs (auto) 2.52, Nucleated RBC % 0 01/14/22 05:37: Sodium 137, Potassium 3.8, Chloride 103, Carbon Dioxide 27.0, Anion Gap 7, BUN 30 H, Creatinine 0.75, Estim Creat Clear Calc 60.36, Est GFR (MDRD) Af Amer 127, Est GFR (MDRD) Non-Af 105, BUN/Creatinine Ratio 39.8 H, Gl ucose 230 H, Calcium 7.8 L, Phosphorus 2.7, Magnesium 2.4, Total Bilirubin 0.50, AST 24, ALT 43, Alkaline Phosphatase 75, Total Protein 5.7 L, Albumin 2.2 L, Globulin 3.5, Albumin/Globulin Ratio 0.6 L Assessment & Plan Assessment/Plan (1) Debility: (2) Cerebrovascular accident involving left middle cerebral artery territory: PLAN: Thrombus due to PAF? due to untreated sleep apnea? will need a 30 day event monitor at [place]. He had hemorrhagic transformation following TPA but, he did not require any intervention. (3) Aphasia complicating stroke: PLAN: severe (4) Right sided weakness: (5) Dysphagia: (6) Presence of externally removable percutaneous endoscopic gastrostomy (PEG) tube: (7) Sleep apnea: PLAN: Needed. Patient unable to tolerate CPAP. Suspicious that he may have PAF and this is what lead to the thrombus in the Left M! branch of the MCA. Was not wearing oxygen at home. (8) Hyperlipidemia: (9) Urine retention: PLAN: Possibly due to BPH - resolved with the addition of Doxazocin (10) Essential hypertension: (11) Atrial bigeminy: (12) PVD (peripheral vascular disease): (13) Premature atrial contractions: (14) Dehydration: PLAN: Plan PLAN PT for gait stability OT for ADL's ST for evaluation Analgesics as needed Bowel protocol Fall precautions Assess for Anxiety/Depression GI prophylaxis with pantoprazole 40 mg p.o. nightly DVT prophylaxis -not transferred on any pharmacologic DVT prophylaxis. He has NATALIE hose on. Will apply SCDs and contact [facility] to see if he is okay to have pharmacologic prophylaxis with Lovenox at this time. Follow up with neurology and PCP following DC from [facility] Re[facility] AM lab including CMP, CBC, Mag and Phos personally reviewed Overnight trending pulse ox on RA Hydrate with NS tonight Check orthostatic VS DC hydrochlorothiazide - he is dehydrated. DC budesonide-he is not wheezing and he has a negative smoking history. Will order as needed albuterol aerosol for wheezing. Charges/Coding Visit Charges Inpatient E&M: 90605 Init Hosp L3
--- NOTE | 2022-01-14 16:06 | PCM.RU.PYE ---
Admission Information Primary Diagnosis:: Post CVA debility with severe aphasia, severe dysphagia and R side weakness. Status Changes from Prescreening?: No changes Identified Actual Problem List:: Alteration in Nutrition, Mobility Impaired, Self Care Deficit, BP, Hypertension, Fluid Change-Dehydration and Alteration-Leisure Activ. Potential Problem List:: DVT, Bleeding, Infection, UTI, Aspiration, Falls, Skin Integrity and Depression Risk of Complications DVT: NATALIE Hose and Sequential Compression Device Bleeding: Monitor Lab Values, Nursing to Teach Precautions for anti-coagulation therapy., Wound, if applicable, to be assessed every shift. and Stroke patients assessed for lethargy or change in status. Infection: Clinical Staff to Monitor for S/S of infection: and S/S of infection include fever, redness, warmth, etc. Urinary Tract Infection: Monitor for frequency, burning, discomfort, or incontinence. and Nursing will obtain urine sample for urinalysis and C&S when ordered. Aspiration: Clinical staff will monitor for coughing, drooling, congestion., Speech will evaluate swallowing and dsyphasia. and Nursing will monitor patient swallowing during meals. Falls: Patient will be evaluated for Fall Precautions and Patient will be placed on Fall Precautions as indicated per protocol. Skin Breakdown: Nursing will assess skin daily using assessment tool. and Nursing will place on Skin Breakdown Precautions as indicated. Pain: Clinical staff will assess patient's pain level per protocol., Medications will be given, if needed, and the pain level reassessed. and Other methods: Massage, distraction, decrease stimulus, etc. used PRN. Plan of Care Patient requires physician specializing in physical medicine and rehab oversight to provide close medical supervision of rehab issues including: Pain Management, Sleep Problems, Bowel and Bladder, Medical and co-morbidity Management, DVT prophylaxis, Rehabilitation Leadership and Coordination of treatment team Patient needs Physical Therapy: For a minimum of 1 hour and At least 5 out of 7 days Patient needs Physical Therapy to improve:: Mobility, Strengthening, Transfers, Stretching, ROM, Endurance, Stairs, Gait and Balance Patient needs Occupational Therapy: For a minimum of 1 hour and At least 5 out of 7 days Patient needs Occupational Therapy to improve ADL's incl.: Eating, Grooming, Bathing, Dressing, Toileting, Toilet transfers, Community Reintegration, Higher functioning activities, Household tasks, Adaptive Equipment, Splinting and Other activities as determined Patient requires speech therapy: For a minimum of 1 hour and At least 5 out of 7 days Patient requires speech therapy for: Swallowing, Cognition, Language Skills and Compensatory Strategies Patient requires 24/ Rehabilitation Nursing for: Pain Issues, Identifying and preventing risk factors, Monitoring and reporting current medical conditions, Assisting with ambulation, transfer, and all ADL's, Teaching patients about disease process and medications, Family teaching, Providing safe environment, Bowel and Bladder Issues, Skin integrity and Medication Management Patient needs Product Test Engineer/ Case Management for: Discharge Planning, Arranging Home Equipment or Services and Family Interventions Patient needs Dietary and Nutrition Services for: Adequate Nutrition, Nutritional Supplements and Nutritional Education Goals Patient will remain: free from falls and or injury at time of discharge. Patient will perform bed mobility at: MOD I level of assist. Patient will complete transfers from bed to chair at: MOD I level of assist. Patient will ambulate: - (300 feet at mod I with least restrictive device) Patient will complete upper body dressing at: Standby Assist. (With minimal cueing) Patient will complete lower body dressing at: Standby Assist. (With minimal cueing) Patient will complete toileting at: Standby Assist. (With minimal voice cues.) Patient will perform bathing at: - (He will complete tub/shower transfers and bathing tasks at standby assist with minimal cues) Patient will complete grooming at: MOD I level of assist. Patient will complete home management skills at: MOD I level of assist. Patient will achieve: - (1 curb step) Patient will have pain level of: of 3 or less Patient's skin will: remain intact Patient will receive: adequate nutrition. Discharge Planning Estimated Length of stay (days): 28 Anticipated D/C Destination: Home w/ family or friends (TBD closer to the time of DC depending on how he has progressed. ) Was Preadmission Assessment Accurate?: Yes
[2022-01-14] MEDS: 0.9% Normal Saline 1,000 ML 500 ML IV (17:57)
[2022-01-14] MEDS: 0.9% Normal Saline 1,000 ML 125 ML IV (19:29)
[2022-01-14] MEDS: Pantoprazole Sodium 40 MG Tablet PO (21:45)
[2022-01-14] MEDS: Atorvastatin Calcium 40 MG Tablet GT (21:45)
--- NOTE | 2022-01-14 22:38 | NURSING ---
Request for medical records (ECHO and cardiology reports) sent to [facility] at fax # [phone]. Recieved fax confirmation. RN aware.
[2022-01-15] MEDS: Jevity 1.5. 1,000 ML Bottle 336 ML GT ×5 (02:01→22:49)
[2022-01-15] MEDS: 0.9% Normal Saline 1,000 ML 125 ML IV (02:58)
[2022-01-15 08:07] VITALS: BP 127/80; PULSE 85; RESP 20; TEMP 37.2; O2SAT 96
[2022-01-15] MEDS: Doxazosin 4 MG Tablet 2 MG GT ×2 (08:35→22:45)
[2022-01-15 08:36] VITALS: PULSE 72
[2022-01-15] MEDS: Aspirin 81 MG TAB.CHEW GT (08:36)
[2022-01-15] MEDS: Metoprolol Tartrate 25 MG Tablet GT ×2 (08:36→22:48)
--- NOTE | 2022-01-15 09:47 | RAD_ITS ---
STUDY: X-RAY - PELVIS AND LEFT HIP REASON FOR EXAM: Male, 86 years old. pain TECHNIQUE: 3 views of the pelvis and hip. COMPARISON: None. FINDINGS: There is a non-specific bowel gas pattern. Normal visualized soft tissue structures. Normal bilateral iliac wings, sacroiliac joints and visualized sacrum. Normal bilateral superior and inferior pubic rami. Normal pubic symphysis. Normal bilateral ischial tuberosities. Normal visualized femoral head. Normal acetabulum. Normal hip joint. RAD/HIP, UNI W/ Pelvis 2-3 Views IMPRESSION: Normal x-ray examination of the pelvis and hip. Electronically Signed: Federico Mayo MD at 10:45 EDT ,
[2022-01-15 17:00] VITALS: BMI 25.8
[2022-01-15 22:42] VITALS: BP 136/64; PULSE 88; RESP 18; TEMP 36.9; O2SAT 94
[2022-01-15] MEDS: Atorvastatin Calcium 40 MG Tablet GT (22:46)
[2022-01-15 22:48] VITALS: BP 136/64; PULSE 77
[2022-01-15 23:04] VITALS: O2SAT 95
[2022-01-15] MEDS: Lansoprazole 15 MG Capsule.DR 30 MG NG (23:12)
[2022-01-16] MEDS: Jevity 1.5. 1,000 ML Bottle 336 ML GT ×5 (02:05→21:21)
[2022-01-16 09:14] VITALS: PULSE 82
[2022-01-16] MEDS: Doxazosin 4 MG Tablet 2 MG GT ×2 (09:14→21:21)
[2022-01-16] MEDS: Metoprolol Tartrate 25 MG Tablet GT ×2 (09:14→22:10)
[2022-01-16] MEDS: Aspirin 81 MG TAB.CHEW GT (09:14)
[2022-01-16] MEDS: Glycerin/Hypromellose/PEG400 15 ml Bottle 2 DRP EACH EYE ×3 (09:15→16:39)
[2022-01-16 10:00] VITALS: BP 133/80; PULSE 85; RESP 16; TEMP 36.5; O2SAT 97
[2022-01-16 13:12] VITALS: BMI 25.8
[2022-01-16 13:20] LABS: Mucous, Urine 0 SEEN /hpf (<or=2+); Red Blood Cells-Urine 0 SEEN /hpf (0-5); Squamous Epithelial Cells - UA 0 SEEN /hpf (0-5)
[2022-01-16 13:27] LABS: Color, Urine Yellow (Yellow); Glucose, Dipstick Normal (Normal); Ketone-Dipstick Negative (Negative); Leukocyte Esterase-Dipstick 25 /ul (Negative); Nitrite-Dipstick Negative (Negative); Occult Blood-Urine Negative /ul (Negative); Protein-Dipstick Negative (Negative); Urine Bilirubin Dipstick Negative (Negative); Urine Clarity Clear (Clear); Urine Urobilinogen 1 mg/dl (Normal)
[2022-01-16 13:40] LABS: Bacteria 2+ /hpf (None Seen); White Blood Cells 0-5 SEEN /hpf (0-5)
[2022-01-16 21:02] VITALS: BP 163/61; PULSE 86; RESP 18; TEMP 36.6; O2SAT 97
[2022-01-16 21:06] VITALS: O2SAT 98
[2022-01-16] MEDS: Lansoprazole 15 MG Capsule.DR 30 MG NG (21:21)
[2022-01-16] MEDS: Atorvastatin Calcium 40 MG Tablet GT (21:21)
[2022-01-16 22:10] VITALS: BP 160/60; PULSE 88
[2022-01-17] MEDS: Jevity 1.5. 1,000 ML Bottle 336 ML GT ×2 (01:16→06:29)
[2022-01-17 01:43] VITALS: BMI 25.8
[2022-01-17] MEDS: Glycerin/Hypromellose/PEG400 15 ml Bottle 2 DRP EACH EYE ×4 (04:56→21:55)
[2022-01-17 07:05] LABS: Bedside Glucose 120 mg/dL (74-106)
[2022-01-17 07:13] VITALS: BP 125/68; PULSE 82; RESP 18; TEMP 36.9; O2SAT 96
--- NOTE | 2022-01-17 09:12 | PCM.PROGNOTE ---
Subjective Subjective Thong was seen on team rounds today. Afebrile VSS Orthostatic VS were + on Monday and he was given IV fluids. Most of the BP's have been within goal however last night the systolic was elevated at 160. The diastolic was WNL. Maintaining appropriate oxygen saturation on RA. The overnight trending pulse ox was reviewed. 93.4% of the time his pulse ox ranges from 90 to 100%. 6.1% of the time the pulse ox ranges from 80-89 and 0.42% of the time the pulse ox ranged from 78-79 but there were no desaturation events below 88% lasting greater than 60 seconds. He is NPO and getting TF. Discussed with nursing - no problems that need addressed Reviewed the PT/OT/ST notes - I spoke with the ST this AM and she is having a hard time keeping Thong awake. When he is awake he does better and may be able to do another MBS so we can see if he is able to start a diet. He is very difficult to arouse when sleeping......even with a sternal rub. Medication list reviewed. He nods off very easily. Has a dense expressive aphasia and I can only understand the automatisms....like thank you which he says very clearly. HE is really not on any sedating medications. His told me that he naps frequently at home. Has not had a sleep study in at least several years. I wonder if he has narcolepsy or is all the sleep problems due to COLTON? He does not appear to be in any distress. He looked over his shoulder at the BR and nursing took him to the BR and he was continent on the toilet. He ambulated 100' on Monday with min/mod assist of 1 and a WW with WC follow. Objective Data Objective Data Vital Signs: Vital Signs Temp Pulse Resp BP Pulse Ox O2 Del Method O2 Flow Rate 98.5 F 82 18 125/68 H 96 Room Air 2 01/17/22 07:13 01/17/22 07:13 01/17/22 07:13 01/17/22 07:13 01/17/22 07:13 01/17/22 07:13 01/16/22 21:06 FiO2 21 01/14/22 21:56 Oxygen Flow Rate (L/min) 2 Oxygen Delivery Method Room Air Weight: 194 lb 6.4 oz Body Mass Index (BMI) 25.8 Intake & Output: Intake and Output for Last 24 Hours 01/15/22 01/16/22 01/17/22 23:59 23:59 23:59 Intake Total 2967.42 / 2967.42 2064 / 2064 1548 / 1548 Output Total 450 / 450 1075 / 1075 455 / 455 Balance 2517.42 / 2517.42 989 / 989 1093 / 1093 Lab / Micro Data Result Diagrams: 01/18/22 11:47 01/24/22 04:09 Labs: Laboratory Results - last 24 hr 01/16/22 13:14: Urine Color Yellow, Urine Clarity Clear, Urine pH 7.0, Ur Specific [place] 1.010, Urine Protein Negative, Urine Glucose (UA) Normal, Urine Ketones Negative, Urine Occult Blood Negative, Urine Nitrite Negative, Urine Bilirubin Negative, Urine Urobilinogen 1 H, Ur Leukocyte Esterase 25 H, Urine RBC 0 SEEN, Urine WBC 0-5 SEEN, Ur Squamous Epith Cells 0 SEEN, Urine Bacteria 2+, Urine Mucus 0 SEEN 01/17/22 06:47: POC Glucose 120 H Physical Exam Const Constitutional Narrative: Made good eye contact when he was awake. Urinated and defecated on the toilet this AM and the PCR with urination was only 80. Resp normal respiratory effort, normal air movement and clear to auscultation bilaterally Cardio regular rate, regular rhythm and no gallops GI normal to inspection, nondistended, normoactive bowel sounds, soft to palpation and non-tender GI Narrative: No guarding with palpation. PEG site is without erythema or discharge. Extremity General Extremity: Negative for edema Skin General Skin Exam: no breakdown Rashes: no rashes Neuro Neuro Narrative: Mild persistent R facial droop. Severe expressive aphasia>> receptive aphasia. Sometimes responding to simple verbal cues by the therapists. He responds well to visual cues. He is not restless. Psych cooperative Assessment & Plan Assessment/Plan (1) Debility: (2) Cerebrovascular accident involving left middle cerebral artery territory: (3) Premature atrial contractions: PLAN: I suspect he has PAF. I have palpated his pulse when the rhythm was irreg irreg but, by the time the RT gets up here to do the EKG he is in atrial bigeminy or having frequent PAC's. His last Holtor monitor was in 2019 and at that time he had a lot of PAC's and no PAF. (4) Dysphagia: (5) Presence of externally removable percutaneous endoscopic gastrostomy (PEG) tube: (6) Right sided weakness: (7) Atrial bigeminy: (8) Sleep disorder: (9) Aphasia complicating stroke: PLAN: Expressive greater than receptive (10) Orthostatic hypotension: PLAN: Plan 1. Continue therapy 2. 30 day event monitor at DC 3. Decrease the doxazosin to 2 mg daily at bedtime only recheck orthostatics in a few days. Charges/Coding Visit Charges Inpatient E&M: 42254 Subs Hosp L2
[2022-01-17 09:14] VITALS: BP 129/79; BP 139/93; BP 90/69; PULSE 106; PULSE 126; PULSE 96
--- NOTE | 2022-01-17 09:53 | NURSING ---
Called [facility] office #[phone] to see if Lovenox can be started and they will call us back.
[2022-01-17] MEDS: Doxazosin 4 MG Tablet 2 MG GT (12:16)
[2022-01-17] MEDS: Aspirin 81 MG TAB.CHEW GT (12:16)
[2022-01-17] MEDS: Modafinil 200 MG Tablet 100 MG PO (12:17)
[2022-01-17 12:18] VITALS: PULSE 106
[2022-01-17] MEDS: Metoprolol Tartrate 25 MG Tablet GT ×2 (12:18→21:55)
[2022-01-17] MEDS: Jevity 1.5. 1,000 ML Bottle 340 ML GT ×3 (12:19→21:55)
[2022-01-17 13:16] VITALS: BMI 25.8
--- NOTE | 2022-01-17 13:19 | CASEMGMT ---
Social Work IDT met with patient, and son for Team meeting. Discussed patient's progress in PT/OT/ST/SN. Educated to Medicare approval with 23 days and DC 02/05. The goal is home with but pt may need SNF stay prior to home. Briefly educated to Medicare coverage in a SNF and options. Offered to provide SNF list with quality and resource data. prefers to review list. Printed and provided to via [employer]. Pt may also improve enough to return home with assistance. recommended sleep study at [place]. Pt wears O2 at night or when sleeping. Will ReTeam next week. SW to continue to follow. Dione Mcneill, DANCE PROFESSOR OIL REFINERY PROCESS TECHNICIAN
--- NOTE | 2022-01-17 14:55 | CHAPLAIN ---
Type of Pastoral Visit _x__ Initial Visit ___ Follow-up Visit ___ On-call Visit ___ General Patient Visit ___ Spiritual Assessment ___ Family Conference ___ Bereavement ___ Rapid Response ___ Code Blue ___ Other (describe below) Pastoral Care Referral From ___ Patient _x__ Family ___ Nurse ___ Physician ___ Director Of Special Events ___ Senior Administrative Assistant ___ Other (describe below) Sacrament/Intervention _x__ Active listening ___ Anointing ___ Religion ___ Bereavement ___ Communion ___ Gauri exploration ___ ___ Life review _x__ Prayer ___ Reconciliation ___ Sacrament of Sick _x__ Supportive presence ___ Wedding ___ Other (describe below) Pastoral Comments patient is lying down in bed; pt spouse and son are in the room and welcoming; they leave soon and rely of this body piercer for support; pt attempts to speak and make conversation but his voice is low and at times unintelligible; prayer is welcomed
--- NOTE | 2022-01-17 19:40 | NURSING ---
Pt set off pa and found by staff with gown off, pa attached to gown, and attempting to get oob. Staff assisted with toileting needs and pressure alarm added to pt safety protocol.
[2022-01-17 20:47] VITALS: BP 123/76; PULSE 88; RESP 15; TEMP 36.8; O2SAT 93
[2022-01-17 21:55] VITALS: PULSE 88
[2022-01-17] MEDS: Lansoprazole 15 MG Capsule.DR 30 MG NG (21:55)
[2022-01-17] MEDS: Doxazosin 1 MG Tablet 2 MG GT (21:55)
[2022-01-17] MEDS: Atorvastatin Calcium 40 MG Tablet GT (21:55)
[2022-01-18 02:03] VITALS: BMI 25.8
[2022-01-18] MEDS: Jevity 1.5. 1,000 ML Bottle 340 ML GT ×5 (02:06→22:27)
[2022-01-18] MEDS: Glycerin/Hypromellose/PEG400 15 ml Bottle 2 DRP EACH EYE ×2 (02:11→05:05)
[2022-01-18] MEDS: Modafinil 200 MG Tablet 100 MG PO (05:01)
[2022-01-18 07:29] VITALS: BP 143/78; PULSE 94; RESP 18; TEMP 36.6; O2SAT 93
[2022-01-18 09:53] VITALS: BP 143/78; PULSE 94
[2022-01-18] MEDS: Aspirin 81 MG TAB.CHEW GT (09:53)
[2022-01-18] MEDS: Metoprolol Tartrate 25 MG Tablet GT (09:53)
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
[2022-01-18 11:58] LABS: Absolute Lymphocyte Count 1.87 X10^3/uL (0.83-4.51); Absolute Neutrophil Count 7.1 X10^3/uL (2.0-7.7); Basophil# 0.07 X10^3/uL; Basophil% 0.7 % (0-1); Eosinophil# 0.09 X10^3/uL; Eosinophils% 0.9 % (0-5); Hematocrit 41.8 % (40-54); Hemoglobin 14.5 g/dL (13.0-16.5); Lymphocyte # 1.87 X10^3/ul (0.83-4.51); Lymphocyte % 18.4 % (19-41); Mean Corp Hgb Conc 34.7 g/dL (32-36); Mean Corpuscular Volume 97.9 fL (80-94); Mean Platelet Vol. 9.4 fl (6.2-12.0); Monocyte# 0.72 X10^3/uL; Monocyte% 7.1 % (0-10); NRBC Flagged by Analyzer 0 % (0-5); Neutrophil # 7.12 X10^3/uL (2.7-7.7); Neutrophil % 70.1 % (47-70); Platelet Count 283 K/mm3 (150-450); RBC Distribution Width SD 45.8 fl (35.1-43.9); Red Blood Count 4.27 M/mm3 (4.6-6.2); White Blood Count 10.2 K/mm3 (4.4-11.0)
[2022-01-18 12:19] LABS: Anion Gap 7 (5-15); BUN 16 mg/dL (7-18); BUN/Creat Ratio 21.8 RATIO (10-20); Calcium,Total 8.5 mg/dL (8.5-10.1); Chloride 101 mmol/L (98-107); Creatinine, Serum 0.73 mg/dL (0.70-1.30); EST Glomerular Filtration Rate 108 mL/min (>60); Est Glom Filt Rate - Afr Amer 131 mL/min (>60); Estimated Creatinine Clearance 60.36 ml/min; Glucose 255 mg/dL (74-106); Potassium 4.7 mmol/L (3.5-5.1); Sodium Level 135 mmol/L (136-145)
[2022-01-18 12:20] LABS: Bedside Glucose 233 mg/dL (74-106)
[2022-01-18 12:24] LABS: Hemoglobin A1c 6.5 % (3.8-5.6)
[2022-01-18] MEDS: Haloperidol Lactate 5 MG/ML Vial 1 MG IM (13:29)
[2022-01-18] MEDS: Amox/Clavulanate 500 MG Tablet PO ×2 (13:32→22:27)
[2022-01-18 15:12] VITALS: BMI 25.8
[2022-01-18 19:22] VITALS: BMI 25.8
[2022-01-18 22:11] VITALS: BP 147/53; PULSE 55; RESP 18; TEMP 36.9; O2SAT 95
[2022-01-18 22:22] VITALS: PULSE 55
[2022-01-18] MEDS: Doxazosin 1 MG Tablet 2 MG GT (22:27)
[2022-01-18] MEDS: Lansoprazole 15 MG Capsule.DR 30 MG NG (22:27)
[2022-01-18] MEDS: Atorvastatin Calcium 40 MG Tablet GT (22:27)
[2022-01-18 22:50] LABS: Bedside Glucose 88 mg/dL (74-106)
[2022-01-19] MEDS: Jevity 1.5. 1,000 ML Bottle 340 ML GT ×5 (00:52→22:23)
[2022-01-19] MEDS: Glycerin/Hypromellose/PEG400 15 ml Bottle 2 DRP EACH EYE ×3 (01:54→08:46)
[2022-01-19] MEDS: Amox/Clavulanate 500 MG Tablet PO ×3 (05:14→22:23)
[2022-01-19] MEDS: Modafinil 200 MG Tablet 100 MG PO (05:14)
[2022-01-19 07:21] LABS: Bedside Glucose 102 mg/dL (74-106)
[2022-01-19 07:54] VITALS: BP 116/76; PULSE 57; RESP 16; TEMP 36.7; O2SAT 95
[2022-01-19 08:45] VITALS: PULSE 107
[2022-01-19] MEDS: Aspirin 81 MG TAB.CHEW GT (08:45)
[2022-01-19] MEDS: Metoprolol Tartrate 25 MG Tablet GT ×2 (08:45→22:23)
--- NOTE | 2022-01-19 09:02 | CASEMGMT ---
Social Work Notified by nursing that family is electing TCU as first choice. Referral made to TCU - pt accepted. SW contacted to update that TCU can accept, if pt needs SNF at DC 11. Educated to Medicare benefit for SNF and encouraged to contact secondary insurance to ensure copay coverage. appreciative. SW to continue to follow for DC planning. Dione Mcneill, UPSCALE SECURITY OFFICER [employer]INEERS
[2022-01-19 10:00] VITALS: O2SAT 97
[2022-01-19 11:06] VITALS: BMI 25.8
[2022-01-19 12:30] LABS: Bedside Glucose 179 mg/dL (74-106)
[2022-01-19 18:20] LABS: Bedside Glucose 85 mg/dL (74-106)
[2022-01-19 20:30] VITALS: BP 135/74; PULSE 102; RESP 18; TEMP 36.8; O2SAT 96; O2SAT 97
[2022-01-19 22:23] VITALS: BP 135/74; PULSE 102
[2022-01-19] MEDS: Doxazosin 1 MG Tablet 2 MG GT (22:23)
[2022-01-19] MEDS: Atorvastatin Calcium 40 MG Tablet GT (22:23)
[2022-01-19] MEDS: Lansoprazole 15 MG Capsule.DR 30 MG NG (22:23)
[2022-01-20 00:36] LABS: Bedside Glucose 207 mg/dL (74-106)
[2022-01-20] MEDS: Jevity 1.5. 1,000 ML Bottle 340 ML GT ×4 (02:28→22:55)
[2022-01-20] MEDS: Amox/Clavulanate 500 MG Tablet PO ×3 (05:39→22:54)
[2022-01-20] MEDS: Modafinil 200 MG Tablet 100 MG PO (05:39)
[2022-01-20 07:15] LABS: Bedside Glucose 115 mg/dL (74-106)
[2022-01-20 08:26] VITALS: BP 101/58; PULSE 56; RESP 18; TEMP 36.1; O2SAT 94
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
[2022-01-20 09:33] VITALS: BP 117/60; BP 135/70; BP 136/88; PULSE 47; PULSE 57; PULSE 81
--- NOTE | 2022-01-20 09:57 | EKG12_ITS ---
Test Reason : ARRYTMIA Blood Pressure : / mmHG Vent. Rate : 088 BPM Atrial Rate : 078 BPM P-R Int : 162 ms QRS Dur : 090 ms QT Int : 386 ms P-R-T Axes : 040 -22 -08 degrees QTc Int : 467 ms Sinus rhythm with Premature supraventricular complexes Leftward axis Poor R wave progression Confirmed by SINCERE SARGENT, TRAE ([id number]), editorial manager GENNARO MONAHAN ([id number]) on 01/21/2022 10:21:49 AM Referred By: BRAXTON Confirmed By:TRAE POST MD
[2022-01-20 11:15] VITALS: O2SAT 94
[2022-01-20 11:36] LABS: Bedside Glucose 119 mg/dL (74-106)
[2022-01-20 11:44] VITALS: PULSE 81
[2022-01-20] MEDS: Metoprolol Tartrate 25 MG Tablet GT ×2 (11:44→22:55)
[2022-01-20] MEDS: Aspirin 81 MG TAB.CHEW GT (11:44)
[2022-01-20] MEDS: Glycerin/Hypromellose/PEG400 15 ml Bottle 2 DRP EACH EYE ×2 (11:47→15:00)
[2022-01-20 13:57] VITALS: BMI 25.8
[2022-01-20 22:00] VITALS: BP 117/60; PULSE 57; RESP 18; TEMP 37; O2SAT 97
[2022-01-20] MEDS: Lansoprazole 15 MG Capsule.DR 30 MG NG (22:54)
[2022-01-20] MEDS: Doxazosin 1 MG Tablet 2 MG GT (22:54)
[2022-01-20 22:55] VITALS: PULSE 74
[2022-01-20] MEDS: QUEtiapine 25 MG Tablet PO (22:55)
[2022-01-20] MEDS: Atorvastatin Calcium 40 MG Tablet GT (22:55)
[2022-01-21] MEDS: Jevity 1.5. 1,000 ML Bottle 340 ML GT ×5 (01:38→21:01)
[2022-01-21 04:21] VITALS: BMI 25.8
[2022-01-21] MEDS: Amox/Clavulanate 500 MG Tablet PO ×3 (06:36→21:00)
[2022-01-21] MEDS: Modafinil 200 MG Tablet 100 MG PO (06:36)
[2022-01-21 07:30] VITALS: BP 125/59; PULSE 47; RESP 18; TEMP 36.8; O2SAT 94
[2022-01-21 08:25] VITALS: PULSE 45
[2022-01-21] MEDS: Aspirin 81 MG TAB.CHEW GT (08:25)
[2022-01-21 09:08] VITALS: BP 117/64; PULSE 49
[2022-01-21 11:05] VITALS: O2SAT 99
[2022-01-21 16:32] VITALS: BMI 25.8
[2022-01-21 19:19] VITALS: BP 125/78; PULSE 90; RESP 18; TEMP 36.9; O2SAT 93
[2022-01-21 21:00] VITALS: BP 125/78; PULSE 90
[2022-01-21] MEDS: Lansoprazole 15 MG Capsule.DR 30 MG NG (21:00)
[2022-01-21] MEDS: QUEtiapine 25 MG Tablet PO (21:00)
[2022-01-21] MEDS: Doxazosin 1 MG Tablet 2 MG GT (21:00)
[2022-01-21] MEDS: Metoprolol Tartrate 25 MG Tablet GT (21:00)
[2022-01-21] MEDS: Atorvastatin Calcium 40 MG Tablet GT (21:00)
--- NOTE | 2022-01-22 01:33 | NURSING ---
STRAIGHT CATHED FOR 400 ML OF CLEAR YELLOW URINE. PT TOLERATES PROCEDURE WELL.
[2022-01-22] MEDS: Jevity 1.5. 1,000 ML Bottle 340 ML GT ×5 (01:37→21:13)
[2022-01-22] MEDS: Modafinil 200 MG Tablet 100 MG PO (06:16)
[2022-01-22] MEDS: Amox/Clavulanate 500 MG Tablet PO ×3 (06:17→21:12)
[2022-01-22 08:00] VITALS: BP 126/63; PULSE 50; RESP 20; TEMP 36.5; O2SAT 96
[2022-01-22 08:49] VITALS: PULSE 103
[2022-01-22] MEDS: Metoprolol Tartrate 25 MG Tablet GT ×2 (08:49→21:11)
[2022-01-22] MEDS: Aspirin 81 MG TAB.CHEW GT (08:49)
[2022-01-22 09:34] VITALS: BMI 25.8
[2022-01-22 09:42] VITALS: O2SAT 98
[2022-01-22 20:51] VITALS: BP 126/69; PULSE 52; RESP 16; TEMP 36.5; O2SAT 97
[2022-01-22 21:11] VITALS: BP 126/69; PULSE 88
[2022-01-22] MEDS: QUEtiapine 25 MG Tablet PO (21:12)
[2022-01-22] MEDS: Lansoprazole 15 MG Capsule.DR 30 MG NG (21:12)
[2022-01-22] MEDS: Doxazosin 1 MG Tablet 2 MG GT (21:12)
[2022-01-22] MEDS: Atorvastatin Calcium 40 MG Tablet GT (21:12)
[2022-01-22 21:15] VITALS: O2SAT 96
[2022-01-23] MEDS: Jevity 1.5. 1,000 ML Bottle 340 ML GT ×5 (02:36→22:16)
[2022-01-23] MEDS: Modafinil 200 MG Tablet 100 MG PO (05:01)
[2022-01-23] MEDS: Amox/Clavulanate 500 MG Tablet PO ×3 (05:01→22:15)
[2022-01-23 07:26] VITALS: BP 111/62; PULSE 77; RESP 20; TEMP 36.9; O2SAT 95
[2022-01-23 08:41] VITALS: PULSE 77
[2022-01-23] MEDS: Metoprolol Tartrate 25 MG Tablet GT (08:41)
[2022-01-23] MEDS: Aspirin 81 MG TAB.CHEW GT (08:42)
[2022-01-23 10:35] VITALS: BMI 25.8
--- NOTE | 2022-01-23 10:40 | PCM.PROGNOTE ---
Subjective Subjective Day #5/ Augmentin Afebrile VSS Maintaining appropriate oxygen saturation on RA Remains n.p.o. and on tube feed. Fluid balance is positive however, he has urinary incontinence at times and the output is not accurate. Discussed with nursing - no problems that need addressed. He is sleeping well at night with the addition of Seroquel to his drug regimen and he was awake and alert and cooperative most of the day yesterday. Seems to be more aware of why he is here and what has happened to him. Reviewed the PT/OT/ST notes Medication list reviewed. He has not had to have Haldol since the first time it was given prior to starting Seroquel. Still with severe expressive aphasia. He is understanding verbal commands and written word much better. He has learned to point at what he wants to communicate. Speech is still unintelligible. Cannot obtain review of systems due to severe expressive aphasia. He does not appear to be in any acute distress. He is less impulsive and is no longer trying to get up without calling the nurse. the last 2-3 days have been good per nursing and therapists. Objective Data Objective Data Vital Signs: Vital Signs Temp Pulse Resp BP Pulse Ox O2 Del Method O2 Flow Rate 98.5 F 77 20 H 111/62 95 Nasal Cannula 2 01/23/22 07:26 01/23/22 08:41 01/23/22 07:26 01/23/22 07:26 01/23/22 07:26 01/23/22 07:26 01/23/22 07:26 FiO2 21 01/14/22 21:56 Oxygen Flow Rate (L/min) 2 Oxygen Delivery Method Nasal Cannula Weight: 198 lb 4 oz Body Mass Index (BMI) 25.8 Intake & Output: Intake and Output for Last 24 Hours 01/21/22 01/22/22 01/23/22 23:59 23:59 23:59 Intake Total 4160 / 4160 3680 / 3680 1040 / 1040 Output Total 500 / 500 1200 / 1200 820 / 820 Balance 3660 / 3660 2480 / 2480 220 / 220 Lab / Micro Data Result Diagrams: 01/18/22 11:47 01/24/22 04:09 Micro: Microbiology 01/16/22 13:14 Urine Catheter - Catheter Urine Culture - Final Enterococcus faecalis Physical Exam Const alert and no apparent distress Constitutional Narrative: less impulsive with no agitation. General Appearance: cooperative HEENT moist oral mucous membranes Eyes PERRL and EOMs intact bilaterally Resp normal respiratory effort and clear to auscultation bilaterally Cardio regular rate, regular rhythm and no gallops GI normal to inspection, nondistended, normoactive bowel sounds and soft to palpation GI Narrative: No guarding with palpation. No erythema around the PEG site and no DC. Extremity Extremity Narrative: No grimacing when I compress his calves. General Extremity: Negative for edema Skin General Skin Exam: no breakdown Rashes: no rashes Assessment & Plan Assessment/Plan (1) Debility: (2) Cerebrovascular accident involving left middle cerebral artery territory: (3) Aphasia complicating stroke: (4) Right sided weakness: (5) Cystitis: (6) Orthostatic hypotension: (7) Dysphagia: PLAN: Plan 1. Continue therapy. He is making good progress now that he is sleeping better (with Seroquel at HS) and is awake during the day with Provigil. 2. BMP, Mag and phos in the AM 3. EKG in the AM to check the QTc since he is now taking the Seroquel daily....in a low dose. QTc was normal last week. 4. Orthostatic vital signs in a.m. Charges/Coding Visit Charges Inpatient E&M: 39955 Subs Hosp L2
[2022-01-23 12:25] LABS: Bedside Glucose 202 mg/dL (74-106)
[2022-01-23 13:14] VITALS: O2SAT 94
[2022-01-23 21:45] VITALS: BP 131/65; PULSE 50; RESP 18; TEMP 36.9; O2SAT 95
[2022-01-23 22:15] VITALS: BP 131/65; PULSE 50; O2SAT 95
[2022-01-23] MEDS: Glycerin/Hypromellose/PEG400 15 ml Bottle 2 DRP EACH EYE (22:15)
[2022-01-23] MEDS: QUEtiapine 25 MG Tablet PO (22:15)
[2022-01-23] MEDS: Doxazosin 1 MG Tablet 2 MG GT (22:15)
[2022-01-23] MEDS: Atorvastatin Calcium 40 MG Tablet GT (22:15)
[2022-01-23] MEDS: Lansoprazole 15 MG Capsule.DR 30 MG NG (22:15)
[2022-01-24] VITALS (8 sets, daily range): BP systolic 113–121; BP diastolic 54–84; PULSE 49–59; RESP 16–18; TEMP 36.6–36.9; O2SAT 92–96; BMI 25.8
[2022-01-24] MEDS: Jevity 1.5. 1,000 ML Bottle 340 ML GT ×5 (02:26→21:55)
[2022-01-24] MEDS: Modafinil 200 MG Tablet 100 MG PO (05:15)
[2022-01-24] MEDS: Amox/Clavulanate 500 MG Tablet PO ×3 (05:16→21:54)
[2022-01-24 06:28] LABS: Anion Gap 7 (5-15); BUN 16 mg/dL (7-18); BUN/Creat Ratio 26.1 RATIO (10-20); Chloride 103 mmol/L (98-107); Creatinine, Serum 0.61 mg/dL (0.70-1.30); EST Glomerular Filtration Rate 133 mL/min (>60); Est Glom Filt Rate - Afr Amer 161 mL/min (>60); Estimated Creatinine Clearance 60.36 ml/min; Glucose 199 mg/dL (74-106); Magnesium 2.2 mg/dL (1.6-2.6); Phosphorus 3.4 mg/dL (2.5-4.9); Potassium 4.1 mmol/L (3.5-5.1); Sodium Level 137 mmol/L (136-145)
[2022-01-24] MEDS: Aspirin 81 MG TAB.CHEW GT (07:56)
--- NOTE | 2022-01-24 09:00 | EKG12_ITS ---
Test Reason : AM EKG Blood Pressure : / mmHG Vent. Rate : 094 BPM Atrial Rate : 094 BPM P-R Int : 164 ms QRS Dur : 088 ms QT Int : 368 ms P-R-T Axes : 024 -26 001 degrees QTc Int : 460 ms Sinus rhythm with Premature atrial complexes in a pattern of bigeminy Otherwise normal ECG When compared with ECG of 20-JAN-2022 11:12, No significant change was found Confirmed by RASHID SARGENT, ANDRA ([id number]), art editor GENNARO MONAHAN ([id number]) on 01/24/2022 12:48:47 PM Referred By: BRAXTON Confirmed By:ANDRA MIKE MD
--- NOTE | 2022-01-24 10:08 | ST.MBS ---
Modified Barium Swallow - Patient Information Study Date: 01/24/22 Study Time: 09:30 Direct Billable Minutes: 75 Total Minutes procedure & reportin Diagnosis: CVA/dysphagia Referring Physician: Nora Fuentes Reason for Referral: Objective assessment of swallow function under fluoroscopy prior to diet advancement. Medical History: Pt is an 86 y/o male who presented to [facility] on 12/27/21 w/ L gaze deviation, R sided weakness and not following commands. Pt was transferred to [facility] and intubated for ~24 hours. Pt had a L MCA CVA s/p TPA and thrombectomy w/ hemorrhagic conversion. FEES 01/04/22 MBS 01/06/22 Recommended NPO w/ PEG. OK for ice chips. Recommended trials of Soft and Bite sized textures and mildly thick liquids w/ APPOINTMENT COORDINATOR only and only when fully awake/alert w/ repeat MBS vs. diet to be advanced if able to maintain consistent alertness and demonstrate tolerance of PO trials w/out overt s/s aspiration. Admitted to [facility] Inpatient Rehab Unit on 01/13/22. Current Diet Ordered: NPO w/ PEG Dentition: WNL Mental Status: Impaired - severe expressive/receptive aphasia s/p CVA Respiratory Status: Oxygenating on Room Air - Penetration-Aspiration Scale Penetration-Aspiration Scale: OBJECTIVE ASSESSMENT OF SWALLOW FUNCTION (QUANTITATIVE ? PER TRIAL): PENETRATION / ASPIRATION SCALE ([place]): 1 = does not enter airway 2 = enters airway/above vocal folds/ejected 3 = enters airway/above vocal folds/not ejected 4 = enters airway/contacts vocal folds/ejected 5 = enters airway/contacts vocal folds/not ejected 6 = enters airway/below vocal folds/ejected 7 = enters airway/below vocal folds/not ejected despite effort 8 = enters airway/below vocal folds/no effort - Penetration-Aspiration Scale Score [place] Thick Liquid via sequential sips from cup Result: 1= does not enter airway Thin Liquid via small single sip from cup Result: 1= does not enter airway Thin Liquid via small single sip from cup Trial 2 Result: 1= does not enter airway Thin Liquid via large single sip from cup Result: 2= enter airway/above vocal folds/ejected Thin Liquid via single sip from straw Result: 1= does not enter airway Pudding Result: 1= does not enter airway Cookie Result: 1= does not enter airway Thin Liquid via sequential sips from cup Result: 2= enter airway/above vocal folds/ejected - Oral Phase Labial Seal: Escape progressing to mid-chin Tongue Control During Bolus Hold: Posterior escape of less than half of bolus Bolus Preparation/Mastication: Disorganized chewing/mashing with solid pieces of bolus unchewed Bolus Transport/Lingual Motion: Repetitive/disorganized tongue motion Oral Residue: Residue collection on oral structures - Pharyngeal Phase Initiation of Pharyngeal Swallow: Bolus head in pyriforms Soft Palate Elevation: No bolus between soft palate and pharyngeal wall Laryngeal Elevation: Comp. Superior move thyroid cart w/comp. apprx arytenoid cart-epig pet Anterior Hyoid Excursion: Complete anterior movement Epiglottic Movement: Complete inversion Laryngeal Vestibule Closure at Height of Swallow: Complete; no air/contrast in laryngeal vestibule Pharyngeal Stripping Wave: Present - complete Pharyngoesophageal Segment Opening: Complete distension and complete duration; no obstruction of flow Tongue Base Retraction: Narrow column of contrast between tongue base & post. pharyngeal wall Pharyngeal Residue: Trace residue within or on pharyngeal structures - Esophageal Phase Esophageal Clearance: Esophageal retention - Diagnosis/Impression Diagnosis: mild oropharyngeal dysphagia Impression: The oral phase is marked by: anterior bolus leakage from the R labial commissure posterior bolus spillage of less than half of liquid prior to swallow onset disorganized mastication w/ repetitive lingual motion for A-P bolus transportation R buccal cavity pocketing of trace-mild solid texture residue The pharyngeal phase is marked by: reduced tongue base retraction w/ the posterior pharyngeal wall compensating to achieve sufficient pressure spillage to the pyriforms w/ large volume/sequential sips prior to swallow onset laryngeal vestibule penetration occurred w/ large volume and sequential bolus intake of thin liquids contrast penetrated into the laryngeal vestibule prior to/during swallow onset penetration was above the vocal folds and was ejected w/ swallow completion penetration was eliminated w/ small volume single sips of thin liquid via cup and straw The esophageal phase is marked by: esophageal retention noted mid esophagus Recommendations Diet: Soft & Bite Size Textures/Thin Liquids Would consider downgrade to mildly thick liquids if unable to consistently take small sips, one sip at a time and demonstrates s/s diet intolerance. Compensatory Strategies: Small bites/sips, one sip at a time, slow rate of intake, check for R buccal cavity pocketing Dysphagia Intervention Recommended: This patient requires continued dysphagia intervention to assess diet tolerance and use of compensatory strategies to reduce aspiration risk. Patient would benefit from lingual strengthening exercises to improve oral bolus prep and residue buccal cavity pocketing. Education Provided: Recommendations were discussed with the patient following MBS conclusion, although expressive/receptive aphasia limits this patient's ability to comprehend. - Status Active ST Patient: Active - Contact Information [facility] Speech Therapy:: Annamaria Ochoa M.A., CCC-APPOINTMENT COORDINATOR [place] [id number] [place] [address] [phone] [email or web address]
--- NOTE | 2022-01-24 13:23 | CASEMGMT ---
Social Work IDT met with patient, and son for Team meeting. Discussed patient's progress in PT/OT/ST/SN. Educated to 23 days with DC 02/05. If pt cannot return home with , family/pt agreeable to DC to TCU. Pt still has peg but ST working on upgrading PO diet. Will ReTeam next week. SW to continue to follow. Dione Mcneill, ON AIR PERSONALITY INTERACTIVE DEVELOPER
--- NOTE | 2022-01-24 15:10 | PN_ITS ---
Subjective Subjective Thong was seen on team rounds today. His Ruth and his son Rafiq were present in the room. Day #6/7 of Augmentin for urinary tract infection. No diarrhea Afebrile VSS-the heart rate ranges from 49-77 over the past 24 hours. Blood pressure is within goal. Maintaining appropriate oxygen saturation on RA Remains NPO. Discussed with nursing - no problems that need addressed. The past 3 days have been very good with no aggressive behavior. He had a excellent day today per PT. He has been cooperative. Sleeping well at night and alert and cooperative during the daylight hours. Reviewed the PT/OT/ST notes Medication list reviewed. All lab from today was personally reviewed. Sodium is now within normal limits. Potassium is 4.1. The BUN is down to 16 and the creatinine is good at 0.61 and this is within his baseline. Calcium corrected for hypoalbuminemia is within normal limits. Mag and Phos are both normal. ROS can not be obtained due to the severe expressive aphasia. Does not appear to be in any pain. He is cooperative with therapy and no sign of agitation. Today he was able to leave in and out between cones and able to step over and back objects with PT. Less impulsive. Can not always understand verbal cues but, when you point and mime what you want him to do he is able to complete the task. Objective Data Objective Data Vital Signs: Vital Signs Temp Pulse Resp BP Pulse Ox O2 Del Method O2 Flow Rate 97.9 F 49 L 16 121/61 H 96 Room Air 2 01/24/22 08:51 01/24/22 09:18 01/24/22 08:51 01/24/22 08:51 01/24/22 08:51 01/24/22 08:51 01/23/22 07:26 FiO2 21 01/14/22 21:56 Oxygen Flow Rate (L/min) 2 Oxygen Delivery Method Room Air Weight: 198 lb 4.011 oz Body Mass Index (BMI) 25.8 Intake & Output: Intake and Output for Last 24 Hours 01/22/22 01/23/22 01/24/22 23:59 23:59 23:59 Intake Total 3680 / 3680 2160 / 2160 640 / 640 Output Total 1200 / 1200 1645 / 1645 1180 / 1180 Balance 2480 / 2480 515 / 515 -540 / -540 Lab / Micro Data Result Diagrams: 01/18/22 11:47 01/24/22 04:09 Labs: Laboratory Results - last 24 hr 01/24/22 04:09: Sodium 137, Potassium 4.1, Chloride 103, Carbon Dioxide 27.0, Anion Gap 7, BUN 16, Creatinine 0.61 L, Estim Creat Clear Calc 60.36, Est GFR (MDRD) Af Amer 161, Est GFR (MDRD) Non-Af 133, BUN/Creatinine Ratio 26.1 H, Glucose 199 H, Calcium 8.0 L, Phosphorus 3.4, Magnesium 2.2 Micro: Microbiology 01/16/22 13:14 Urine Catheter - Catheter Urine Culture - Final Enterococcus faecalis Physical Exam Const alert Constitutional Narrative: not always cooperative. HEENT moist oral mucous membranes HEENT Narrative: no evidence of thrush Eyes PERRL and EOMs intact bilaterally Eyes Narrative: no scleral icterus and no DC Neck supple General: trachea midline Resp normal respiratory effort, normal air movement and clear to auscultation bilaterally Effort and Inspection: Negative for tachypneic, respiratory distress or labored Cardio regular rate, regular rhythm, S1 normal heart sound, S2 normal heart sound, no m urmurs, no rub and no gallops Cardio Narrative: having ectopic beats. occasional. Not bigeminal today. GI normal to inspection, nondistended, normoactive bowel sounds, soft to palpation and non-tender GI Narrative: No guarding with palpation. Extremity Extremity Narrative: Does not seem to be in pain when I dorsiflex his foot or squeeze his calf. General Extremity: Negative for clubbing, cyanosis or edema Skin General Skin Exam: no breakdown Rashes: no rashes Neuro Neuro Narrative: Mild persistent R facial droop. Severe expressive aphasia>> receptive aphasia. Sometimes responding to simple verbal cues by the therapists. He responds well to visual cues. He is not restless. Psych cooperative Psych Narrative: Less impulsive. Not agitated and no aggressive behavior since he has been sleeping well at night (with the addition of Seroquel to the drug regmien). Assessment & Plan Assessment/Plan (1) Cystitis: PLAN: Augmentin will finish tomorrow. (2) Debility: PLAN: Making good progress with PT/OT now that he is sleeping at night and awake during the day. will continue the Seroquel and the Provigil. 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 She plans on having a meal with him tomorrow and will do thin liquids and small moist bite side pieces. (5) Aphasia complicating stroke: PLAN: Making progress with ST. I can understand the automatisms when he says them but, mostly speech is still unintelligible. He is able to write his name at times and when showed an object and the printed name of that object he is able to pick that object out of a group with increasing success. (6) Sleep disorder: PLAN: I think he has more than just sleep apnea. Will recommend follow up with Dr. Pattie beard DC. PLAN: Plan 1. Continue therapy. 2. Discontinue as needed Haldol 3. Post void residuals have been good today, less than 100. We will continue with the doxazosin once a day at bedtime. Orthostatics were rechecked today and were negative. Charges/Coding Visit Charges Inpatient E&M: 74165 Subs Hosp L2
[2022-01-24] MEDS: Lansoprazole 15 MG Capsule.DR 30 MG NG (21:54)
[2022-01-24] MEDS: QUEtiapine 25 MG Tablet PO (21:55)
[2022-01-24] MEDS: Doxazosin 1 MG Tablet 2 MG GT (21:55)
[2022-01-24] MEDS: Atorvastatin Calcium 40 MG Tablet GT (21:55)
[2022-01-24] MEDS: Glycerin/Hypromellose/PEG400 15 ml Bottle 2 DRP EACH EYE (21:56)
[2022-01-25] MEDS: Jevity 1.5. 1,000 ML Bottle 340 ML GT ×2 (01:50→21:09)
[2022-01-25] MEDS: Amox/Clavulanate 500 MG Tablet PO ×2 (06:16→13:47)
[2022-01-25] MEDS: Modafinil 200 MG Tablet 100 MG PO (06:16)
[2022-01-25 07:47] VITALS: BP 125/79; PULSE 67; RESP 16; TEMP 36.6; O2SAT 96
--- NOTE | 2022-01-25 09:26 | NURSING ---
0800 bolus TF held d/t PO breakfast with ST
[2022-01-25 09:50] VITALS: PULSE 67
[2022-01-25] MEDS: Metoprolol Tartrate 25 MG Tablet GT ×2 (09:50→21:06)
[2022-01-25] MEDS: Aspirin 81 MG TAB.CHEW GT (09:54)
--- NOTE | 2022-01-25 12:22 | NURSING ---
Pt ate 50% of lunch tray with direct supervision. Ravinder held d/t PO intake
[2022-01-25 12:25] VITALS: BMI 25.8
[2022-01-25 21:06] VITALS: PULSE 62
[2022-01-25] MEDS: Doxazosin 1 MG Tablet 2 MG GT (21:06)
[2022-01-25] MEDS: QUEtiapine 25 MG Tablet PO (21:06)
[2022-01-25] MEDS: Lansoprazole 15 MG Capsule.DR 30 MG NG (21:08)
[2022-01-25] MEDS: Atorvastatin Calcium 40 MG Tablet GT (21:08)
[2022-01-25 22:29] VITALS: BMI 25.8
[2022-01-25 23:00] VITALS: BP 96/57; PULSE 48; RESP 18; TEMP 36.6; O2SAT 97
[2022-01-26] MEDS: Jevity 1.5. 1,000 ML Bottle 340 ML GT ×2 (00:59→22:31)
[2022-01-26] MEDS: Modafinil 200 MG Tablet 100 MG PO (05:41)
[2022-01-26 08:51] VITALS: BP 133/57; PULSE 50; RESP 16; TEMP 37.2; O2SAT 98
[2022-01-26 08:52] VITALS: BP 133/57; PULSE 50; RESP 16; TEMP 37.2; O2SAT 98
[2022-01-26] MEDS: Aspirin 81 MG TAB.CHEW GT (09:07)
[2022-01-26 09:12] VITALS: BP 116/65; PULSE 47
[2022-01-26] MEDS: Metoprolol Tartrate 25 MG Tablet GT (09:12)
--- NOTE | 2022-01-26 10:09 | RAD_ITS ---
STUDY: X-RAY CHEST REASON FOR EXAM: Male, 86 years old. Cough and shortness of breath. TECHNIQUE: PA and lateral views of the chest. COMPARISON: Comparison is made with prior study dated 06/23/2021. FINDINGS: Stable elevation of the right hemidiaphragm. Stable increased interstitial markings in both lungs and the preferential peripheral distribution suggestive of scarring. There is no demonstrated pleural abnormality. Normal size heart. A loop recorder device is seen over the heart. Normal mediastinum and yanci. Normal visualized pulmonary arteries. There is atherosclerotic calcification of the aortic arch with tortuosity. There are diffuse degenerative changes of the visualized thoracic spine. Normal visualized ribs, clavicles, and shoulders. A PEG tube is seen in the left upper quadrant. RAD/Chest PA and Lateral IMPRESSION: Findings suggestive of scarring as described. Stable elevation of the right hemidiaphragm. Electronically Signed: Otilio Batres MD at 14:52 EDT ,
--- NOTE | 2022-01-26 11:52 | PN_ITS ---
Subjective Subjective Afebrile VSS Maintaining appropriate oxygen saturation on RA Oral intake -he was started on a diet yesterday. Discussed with nursing - no problems that need addressed Reviewed the PT/OT/ST notes Medication list reviewed. He was coughing a great deal yesterday afternoon when he was lying in bed. Not coughing this AM. D/W ST......he did well eating yesterday on the meal she watched him eat. He is on thin liquids. Auscultation today reveals persistent coarse crackles in the R base after several deep breaths. The CXR shows poor inspiratory effort and per my review possible posterior infiltrate in the R mi ddle lobe seen best on the lateral. ROS not possible due to severe expressive aphasia. Objective Data Objective Data Vital Signs: Vital Signs Temp Pulse Resp BP Pulse Ox O2 Del Method O2 Flow Rate 98.9 F 47 L 16 116/65 98 Room Air 2 01/26/22 08:52 01/26/22 09:12 01/26/22 08:52 01/26/22 09:12 01/26/22 08:52 01/26/22 08:52 01/25/22 21:00 FiO2 21 01/14/22 21:56 Oxygen Flow Rate (L/min) 2 Oxygen Delivery Method Room Air Weight: 199 lb 15.348 oz Body Mass Index (BMI) 25.8 Intake & Output: Intake and Output for Last 24 Hours 01/24/22 01/25/22 01/26/22 23:59 23:59 23:59 Intake Total 3220 / 3220 2380 / 2380 Output Total 2430 / 2430 1000 / 1000 Balance 790 / 790 1380 / 1380 Lab / Micro Data Result Diagrams: 02/01/22 05:20 02/01/22 05:20 Micro: Microbiology 01/16/22 13:14 Urine Catheter - Catheter Urine Culture - Final Enterococcus faecalis Physical Exam Const alert and no apparent distress General Appearance: cooperative HEENT moist oral mucous membranes Eyes PERRL and EOMs intact bilaterally Resp normal respiratory effort and normal air movement Resp Narrative: No conversational dyspnea. He is not coughing today and I saw him eating while he was eating breakfast. There are coarse crackles in the R base that persist despite several deep breaths. Effort and Inspection: Negative for tachypneic or labored Cardio no murmurs and no gallops Cardio Narrative: The rhythm is irregular and he has a lot of ectopy/premature beats. GI normal to inspection, nondistended, normoactive bowel sounds, soft to palpation and non-tender GI Narrative: No guarding with palpation. Extremity no calf tenderness Extremity Narrative: No grimacing when I compress his calves. General Extremity: Negative for edema Skin General Skin Exam: no breakdown Rashes: no rashes Assessment & Plan Assessment/Plan (1) Debility: (2) Cerebrovascular accident involving left middle cerebral artery territory: (3) Premature atrial contractions: (4) Atrial bigeminy: (5) Aphasia complicating stroke: (6) Dysphagia: (7) Aspiration pneumonia: PLAN: Plan 1. Start Augmentin 875 mg BID for 5 days. Keep him upright at 90 degrees for 30 minutes after eating. 2. Continue therapy. He is doing quite well and is eating now with a good appetite. He is very cooperative now and easy to work with. 3. I have felt his pulse when he is in AF but, not able to catch on EKG. The CVA was due to a thrombus and he had a thrombectomy at [facility]. He has seen [facility] in the past....will reach out to them for an opinion. It was a devastating stroke with persistent expressive >>receptive aphasia. The benefit of anticoagulating at this point, even though we have no documented AF, seems to outweigh the risk at this time. Charges/Coding Visit Charges Inpatient E&M: 64236 Subs Hosp L2
[2022-01-26 12:10] VITALS: BMI 25.8
[2022-01-26] MEDS: Amox/Clavulanate 875 MG Tablet PO ×2 (14:24→22:31)
[2022-01-26 22:27] VITALS: BP 138/68; PULSE 47; RESP 16; TEMP 37.1; O2SAT 94
[2022-01-26 22:29] VITALS: PULSE 48
[2022-01-26] MEDS: Atorvastatin Calcium 40 MG Tablet GT (22:31)
[2022-01-26] MEDS: QUEtiapine 25 MG Tablet PO (22:31)
[2022-01-26] MEDS: Doxazosin 1 MG Tablet 2 MG GT (22:31)
[2022-01-26] MEDS: Lansoprazole 15 MG Capsule.DR 30 MG NG (22:31)
[2022-01-26 23:36] VITALS: BMI 25.8
[2022-01-27] VITALS (7 sets, daily range): BP systolic 134–159; BP diastolic 67–85; PULSE 48–91; RESP 16–18; TEMP 36.5–36.8; O2SAT 96–98; BMI 25.8
[2022-01-27] MEDS: Jevity 1.5. 1,000 ML Bottle 340 ML GT (02:45)
[2022-01-27] MEDS: Modafinil 200 MG Tablet 100 MG PO (05:36)
[2022-01-27] MEDS: Aspirin 81 MG TAB.CHEW GT (08:11)
[2022-01-27] MEDS: Metoprolol Tartrate 25 MG Tablet GT ×2 (08:11→21:04)
[2022-01-27] MEDS: Amox/Clavulanate 875 MG Tablet PO ×2 (08:11→21:05)
[2022-01-27] MEDS: Glycerin/Hypromellose/PEG400 15 ml Bottle 2 DRP EACH EYE (08:15)
[2022-01-27] MEDS: Ensure Plus High Protein 120 ML LIQUID PO (17:38)
[2022-01-27] MEDS: QUEtiapine 25 MG Tablet PO (21:05)
[2022-01-27] MEDS: Atorvastatin Calcium 40 MG Tablet GT (21:05)
[2022-01-27] MEDS: Lansoprazole 15 MG Capsule.DR 30 MG NG (21:05)
[2022-01-27] MEDS: Doxazosin 1 MG Tablet 2 MG GT (21:05)
[2022-01-28] MEDS: Modafinil 200 MG Tablet 100 MG PO (06:56)
[2022-01-28] MEDS: Ensure Plus High Protein 120 ML LIQUID PO ×2 (08:07→11:28)
[2022-01-28 08:08] VITALS: PULSE 66
[2022-01-28] MEDS: Amox/Clavulanate 875 MG Tablet PO ×2 (08:08→21:58)
[2022-01-28] MEDS: Aspirin 81 MG TAB.CHEW GT (08:08)
[2022-01-28] MEDS: Metoprolol Tartrate 25 MG Tablet GT ×2 (08:08→21:53)
[2022-01-28 08:10] VITALS: BP 133/64; PULSE 66; RESP 16; TEMP 36.6; O2SAT 95
[2022-01-28 15:38] VITALS: BMI 25.8
[2022-01-28] MEDS: QUEtiapine 25 MG Tablet PO (21:51)
[2022-01-28] MEDS: Lansoprazole 15 MG Capsule.DR 30 MG NG (21:52)
[2022-01-28] MEDS: Doxazosin 1 MG Tablet 2 MG GT (21:52)
[2022-01-28 21:53] VITALS: PULSE 62
[2022-01-28] MEDS: Atorvastatin Calcium 40 MG Tablet GT (21:53)
[2022-01-28 22:00] VITALS: BP 133/64; PULSE 69; PULSE 77; RESP 16; TEMP 36.6; O2SAT 93
[2022-01-28 23:45] VITALS: BMI 25.8
[2022-01-29] MEDS: Modafinil 200 MG Tablet 100 MG PO (05:01)
[2022-01-29] MEDS: Glycerin/Hypromellose/PEG400 15 ml Bottle 2 DRP EACH EYE (05:09)
[2022-01-29 07:40] VITALS: BP 136/68; PULSE 73; RESP 16; TEMP 36.4; O2SAT 95
[2022-01-29 07:53] VITALS: PULSE 73
[2022-01-29] MEDS: Amox/Clavulanate 875 MG Tablet PO ×2 (07:53→21:40)
[2022-01-29] MEDS: Aspirin 81 MG TAB.CHEW GT (07:53)
[2022-01-29] MEDS: Metoprolol Tartrate 25 MG Tablet GT ×2 (07:53→21:39)
[2022-01-29] MEDS: Ensure Plus High Protein 120 ML LIQUID PO (07:53)
[2022-01-29 13:17] VITALS: BMI 25.8
--- NOTE | 2022-01-29 18:01 | NURSING ---
Patient will use call frazier at times and other times he will get up unassisted and alarm will sound to alert staff. Severe global and expressive asphasia with garbled speech. Patient very pleasant with staff. Up with min to stand by assist with walker.
[2022-01-29 19:47] VITALS: BP 130/65; PULSE 72; RESP 16; TEMP 36.6; O2SAT 96
[2022-01-29 21:39] VITALS: BP 130/65; PULSE 72
[2022-01-29] MEDS: Lansoprazole 15 MG Capsule.DR 30 MG NG (21:39)
[2022-01-29] MEDS: Doxazosin 1 MG Tablet 2 MG GT (21:39)
[2022-01-29] MEDS: Atorvastatin Calcium 40 MG Tablet GT (21:39)
[2022-01-29] MEDS: QUEtiapine 25 MG Tablet PO (21:40)
[2022-01-30] MEDS: Magnesium Hydroxide 30 ML UDC PO (06:37)
[2022-01-30] MEDS: Modafinil 200 MG Tablet 100 MG PO (06:38)
[2022-01-30 08:51] VITALS: BP 123/63; PULSE 98; RESP 20; TEMP 36.2; O2SAT 93
[2022-01-30 10:19] VITALS: PULSE 98
[2022-01-30] MEDS: Aspirin 81 MG TAB.CHEW GT (10:19)
[2022-01-30] MEDS: Metoprolol Tartrate 25 MG Tablet GT ×2 (10:19→20:12)
[2022-01-30] MEDS: Amox/Clavulanate 875 MG Tablet PO ×2 (10:19→20:13)
[2022-01-30] MEDS: Ensure Plus High Protein 120 ML LIQUID PO (11:51)
[2022-01-30 14:36] VITALS: BMI 25.8
[2022-01-30 19:49] VITALS: BP 132/77; PULSE 88; RESP 17; TEMP 36.6; O2SAT 96
[2022-01-30 20:12] VITALS: BP 132/77; PULSE 88
[2022-01-30] MEDS: Atorvastatin Calcium 40 MG Tablet GT (20:12)
[2022-01-30] MEDS: QUEtiapine 25 MG Tablet PO (20:13)
[2022-01-30] MEDS: Doxazosin 1 MG Tablet 2 MG GT (20:13)
[2022-01-30] MEDS: Lansoprazole 15 MG Capsule.DR 30 MG NG (20:13)
[2022-01-31] VITALS (7 sets, daily range): BP systolic 103–137; BP diastolic 72–94; PULSE 75–92; RESP 16–20; TEMP 36.5–36.9; O2SAT 93–95; BMI 25.8
[2022-01-31] MEDS: Modafinil 200 MG Tablet 100 MG PO (05:42)
[2022-01-31] MEDS: Metoprolol Tartrate 25 MG Tablet GT ×2 (07:49→20:21)
[2022-01-31] MEDS: Aspirin 81 MG TAB.CHEW GT (07:49)
[2022-01-31] MEDS: Ensure Plus High Protein 120 ML LIQUID PO ×3 (07:50→16:31)
--- NOTE | 2022-01-31 12:05 | PCM.PROGNOTE ---
Subjective Subjective Thong was seen on team rounds today. His Ruth and his daughter Molly were present in the room for rounds. Molly is a nurse in [employer]. He finished a 5-day day course of Augmentin 875 mg twice daily for suspected aspiration pneumonia in the right middle lobe. He occasionally clears his throat now and has a rare cough but, it not continuously coughing any longer Afebrile VSS-heart rate is within normal limits and the blood pressure is well controlled. Maintaining appropriate oxygen saturation on RA Oral intake is good He has lost approximately 4 pounds since admission. Post void residuals have been all consistently less than 100. Discussed with nursing - no problems that need addressed Reviewed the PT/OT/ST notes - He is very cooperative and progressing well. Medication list reviewed. does not appear to be in any distress. He does everything that the therapists ask of him. No agitation. Sleeping and eating well. Very cooperative. makes good eye contact when I am talking with him. He is able to make his needs known to the nurses by pointing. Objective Data Objective Data Vital Signs: Vital Signs Temp Pulse Resp BP Pulse Ox O2 Del Method O2 Flow Rate 97.7 F L 75 20 H 113/72 93 Room Air 2 01/31/22 07:30 01/31/22 07:49 01/31/22 07:30 01/31/22 07:30 01/31/22 08:39 01/31/22 07:30 01/25/22 21:00 FiO2 21 01/14/22 21:56 Oxygen Flow Rate (L/min) 2 Oxygen Delivery Method Room Air Weight: 194 lb 7.163 oz Body Mass Index (BMI) 25.8 Intake & Output: Intake and Output for Last 24 Hours 01/30/22 01/30/22 01/31/22 00:59 23:59 23:59 Intake Total 440 / 440 Output Total 400 / 400 Balance 40 / 40 Lab / Micro Data Result Diagrams: 01/18/22 11:47 01/24/22 04:09 Micro: Microbiology 01/16/22 13:14 Urine Catheter - Catheter Urine Culture - Final Enterococcus faecalis Physical Exam Const alert and no apparent distress Constitutional Narrative: Sitting in the recliner at the bedside. General Appearance: cooperative HEENT moist oral mucous membranes Resp normal respiratory effort, normal air movement and clear to auscultation bilaterally Resp Narrative: No conversational dyspnea Effort and Inspection: Negative for tachypneic Cardio Cardio Narrative: He is a regular rhythm with bradycardia in the 40's at the present time with no ectopy. GI normal to inspection, nondistended, normoactive bowel sounds, soft to palpation and non-tender GI Narrative: No guarding with palpation Extremity no calf tenderness General Extremity: Negative for edema Skin General Skin Exam: no breakdown Rashes: no rashes Neuro Neuro Narrative: Still with marked expressive aphasia and also with receptive aphasia. He does not always understand what you want him to do.......he is able to mimic what I do. doing better at matching words. Doing better with self care/ADL's. HE is much less impulsive and he is calm with no agitation. Assessment & Plan Assessment/Plan (1) Debility: (2) Cerebrovascular accident involving left middle cerebral artery territory: (3) Premature atrial contractions: (4) Atrial bigeminy: (5) Aphasia complicating stroke: (6) Dysphagia: PLAN: Plan 1. Discontinue daily post void residuals 2. Discontinue daily weights and weigh him twice a week now. He is eating well. 3. BMP and CBC in the AM. 4. Check orthostatic vital signs today He had TPA followed by thrombectomy at [facility]. No clot in the heart and no documented AF BUT, he has had atrial bigeminy on EKG's and I have heard him have an irreg, irreg rhythm on PE and by the time the EKG was done he was back in SR with many PAC's and atrial bigeminy at times. The overnight trending pulse ox had no desaturations longer than 60 secs and 93% of the time monitored the I think at this time we should consider anticoagulation for suspected AF. Will find out which neurologist he is to follow up with at [place] and discuss possible anticoagulation. Will also discuss with Dr. Yap. 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 This was discussed on rounds. I also discussed COLTON and other sleep disorders and they are on board with follow up with Dr. Blankenship. Does not tolerate CPAP mask at all. Will call and schedule an appt with Dr. Blankenship and make a referral. All questions were answered. His and son will be coming in for family training this week but, they would like him to go to TCU at [facility] for additional therapy prior to returning home. I think Thong would benefit from this........norris with speech. Follwoing DC from TCU he will get OP therapy at [facility]. Charges/Coding Visit Charges Inpatient E&M: 69264 Subs Hosp L2
--- NOTE | 2022-01-31 13:15 | CASEMGMT ---
Social Work Team meeting held. Patient present as well as patient spouse and daughter. Discharge date set for 02/05/2022. Plan is for patient to discharge to the Transitional Care Unit and then discharge to home after treatment/care is completed on the Transitional Care Unit. Family plans to come in and complete family training with patient, in the event that family is comfortable with discharge to home this weekend, 02/05 family to notify staff/social science instructor about change of plan. Patient to continue with further care and treatment on the Inpatient Rehab Unit. PLAN: Transitional Care Unit. Proposed discharge date: 02/05/2022 Oskar MCGRAW, JUAN JOSÉ
[2022-01-31] MEDS: QUEtiapine 25 MG Tablet PO (20:19)
[2022-01-31] MEDS: Lansoprazole 15 MG Capsule.DR 30 MG NG (20:21)
[2022-01-31] MEDS: Atorvastatin Calcium 40 MG Tablet GT (20:21)
[2022-01-31] MEDS: Doxazosin 1 MG Tablet 2 MG GT (20:21)
[2022-02-01 05:31] LABS: Hematocrit 38.7 % (40-54); Hemoglobin 13.3 g/dL (13.0-16.5); Mean Corp Hgb Conc 34.4 g/dL (32-36); Mean Corpuscular Hgb 33.6 pg (27.0-32.0); Mean Corpuscular Volume 97.7 fL (80-94); Mean Platelet Vol. 9.1 fl (6.2-12.0); Platelet Count 175 K/mm3 (150-450); RBC Distribution Width CV 13.7 % (11.6-14.6); RBC Distribution Width SD 49.3 fl (35.1-43.9); Red Blood Count 3.96 M/mm3 (4.6-6.2); White Blood Count 7.6 K/mm3 (4.4-11.0)
[2022-02-01] MEDS: Glycerin/Hypromellose/PEG400 15 ml Bottle 2 DRP EACH EYE ×2 (05:48→20:03)
[2022-02-01 05:57] LABS: Anion Gap 6 (5-15); BUN 18 mg/dL (7-18); BUN/Creat Ratio 26.3 RATIO (10-20); Calcium,Total 8.1 mg/dL (8.5-10.1); Chloride 104 mmol/L (98-107); Creatinine, Serum 0.68 mg/dL (0.70-1.30); EST Glomerular Filtration Rate 117 mL/min (>60); Est Glom Filt Rate - Afr Amer 142 mL/min (>60); Estimated Creatinine Clearance 60.36 ml/min; Glucose 118 mg/dL (74-106); Potassium 3.9 mmol/L (3.5-5.1); Sodium Level 139 mmol/L (136-145)
[2022-02-01] MEDS: Modafinil 200 MG Tablet 100 MG PO (06:00)
[2022-02-01 07:39] VITALS: BP 114/81; PULSE 72; RESP 17; TEMP 36.8; O2SAT 95
[2022-02-01 07:56] VITALS: BP 114/81; PULSE 72
[2022-02-01] MEDS: Metoprolol Tartrate 25 MG Tablet GT ×2 (07:56→20:25)
[2022-02-01] MEDS: Ensure Plus High Protein 120 ML LIQUID PO ×3 (07:56→16:54)
[2022-02-01] MEDS: Aspirin 81 MG TAB.CHEW GT (07:57)
[2022-02-01 15:25] VITALS: BMI 25.8
--- NOTE | 2022-02-01 17:55 | NURSING ---
1700- PEG FLUSHED AND CARE DONE WITH ON LOOKING AND TEACHING DONE. 100CC WATER FLUSHED. NO QUESTIONS VOICED. PT TRYING VERY HARD TO TALK TO NURSE. UNABLE TO UNDERSTAND WHAT WAS TRYING TO SAY. WAS TRYING TO TALK IN LONG SENTENCES BUT NO IDEA WHAT ABOUT. TO COME MONDAY FOR FAMILY TRAINING
[2022-02-01 19:10] VITALS: BP 127/72; PULSE 61; RESP 18; TEMP 36.4; O2SAT 95
[2022-02-01] MEDS: QUEtiapine 25 MG Tablet PO (20:04)
[2022-02-01 20:19] VITALS: PULSE 64; RESP 16; O2SAT 96; BMI 25.8
[2022-02-01 20:25] VITALS: PULSE 68
[2022-02-01] MEDS: Atorvastatin Calcium 40 MG Tablet GT (20:26)
[2022-02-01] MEDS: Lansoprazole 15 MG Capsule.DR 30 MG NG (20:27)
[2022-02-01] MEDS: Doxazosin 1 MG Tablet 2 MG GT (20:27)
[2022-02-02] MEDS: Modafinil 200 MG Tablet 100 MG PO (06:34)
[2022-02-02 07:46] VITALS: PULSE 66
[2022-02-02] MEDS: Metoprolol Tartrate 25 MG Tablet GT ×2 (07:46→21:21)
[2022-02-02] MEDS: Aspirin 81 MG TAB.CHEW GT (07:46)
[2022-02-02] MEDS: Glycerin/Hypromellose/PEG400 15 ml Bottle 2 DRP EACH EYE (07:46)
[2022-02-02] MEDS: Ensure Plus High Protein 120 ML LIQUID PO ×3 (07:47→17:26)
[2022-02-02 08:30] VITALS: BP 128/66; PULSE 66; RESP 15; TEMP 36.2; O2SAT 94
[2022-02-02 10:00] VITALS: PULSE 91; O2SAT 93
--- NOTE | 2022-02-02 10:25 | PCM.PROGNOTE ---
Subjective Subjective Afebrile VSS-blood pressure and heart rate are well controlled. Maintaining appropriate oxygen saturation on RA Oral intake is good Discussed with nursing - no problems that need addressed Reviewed the PT/OT/ST notes Medication list reviewed. All lab from yesterday was personally reviewed. White blood cell count, hemoglobin and platelets are all within normal limits. Electrolytes are within normal limits and the creatinine is stable at 0.86. Fasting glucose was 118 this a.m. and he is known to have glucose intolerance. the higher BS's earlier in the admission were due to checking the BS in close proximity to the TF bolus. He is no longer on TF. He is smiling and pleasant today. He asked me when he was going to TCU and I told him Monday. He has accepted this. He is becoming more aware of himself and asked if he could get a haircut today. I am now able to understand some words. Does well with automatic speech and it is very intelligible. No cough. No SOB. Have not heard back from cardiology. Objective Data Objective Data Vital Signs: Vital Signs Temp Pulse Resp BP Pulse Ox O2 Del Method O2 Flow Rate 97.2 F L 66 15 128/66 H 94 Room Air 2 02/02/22 08:30 02/02/22 08:30 02/02/22 08:30 02/02/22 08:30 02/02/22 08:30 02/02/22 08:30 01/25/22 21:00 FiO2 21 01/14/22 21:56 Oxygen Flow Rate (L/min) 2 Oxygen Delivery Method Room Air Weight: 194 lb 7.163 oz Body Mass Index (BMI) 25.8 Intake & Output: Intake and Output for Last 24 Hours 01/31/22 02/01/22 02/02/22 23:59 23:59 23:59 Intake Total 1360 / 1360 1790 / 1790 240 / 240 Output Total 750 / 750 700 / 700 Balance 610 / 610 1090 / 1090 240 / 240 Lab / Micro Data Result Diagrams: 02/01/22 05:20 02/01/22 05:20 Micro: Microbiology 01/16/22 13:14 Urine Catheter - Catheter Urine Culture - Final Enterococcus faecalis Physical Exam Const alert and no apparent distress Constitutional Narrative: Sitting in the recliner at the bedside. General Appearance: cooperative Resp normal respiratory effort, normal air movement and clear to auscultation bilaterally Cardio regular rate, regular rhythm, no murmurs and no gallops Cardio Narrative: at times he has been bradycardic and in the 40's and at other times he is very irregular and has documented atrial bigeminy and frequent PAC's. I have also palpated his pulse when he is in AF. GI normal to inspection, nondistended, normoactive bowel sounds, soft to palpation and non-tender GI Narrative: No guarding with palpation. Extremity no calf tenderness Extremity Narrative: No grimacing when I compress his calves. General Extremity: Negative for clubbing, cyanosis or edema Skin General Skin Exam: no breakdown Rashes: no rashes Neuro Neuro Narrative: Still with marked expressive aphasia and also with receptive aphasia. He does not always understand what you want him to do.......he is able to mimic what I do. doing better at matching words. Doing better with self care/ADL's. HE is much less impulsive and he is calm with no agitation. Psych cooperative Psych Narrative: Less impulsive. Not agitated and no aggressive behavior since he has been sleeping well at night (with the addition of Seroquel to the drug regmien). Attitude: agitated Activity / Motor Behavior: restless Assessment & Plan Assessment/Plan (1) Debility: (2) Cerebrovascular accident involving left middle cerebral artery territory: (3) Premature atrial contractions: (4) Atrial bigeminy: (5) Aphasia complicating stroke: (6) Dysphagia: (7) Aspiration pneumonia: PLAN: Resolved. He has completed 5 days of Augmentin. PLAN: Plan 1. Continue therapy 2. Transfer to TCU at discharge for additional therapy prior to returning home. Family is coming in for family training this week. 3. I have not heard from cardiology for a curbside consult so will enter formal consult today. Charges/Coding Visit Charges Inpatient E&M: 33953 Subs Hosp L2
[2022-02-02 12:19] VITALS: BMI 25.8
--- NOTE | 2022-02-02 17:00 | NURSING ---
Peg tube education completed with spouse.
[2022-02-02 19:54] VITALS: BP 114/69; PULSE 75; RESP 16; TEMP 36.9; O2SAT 94
[2022-02-02 20:00] VITALS: O2SAT 94
[2022-02-02 21:21] VITALS: BP 114/69; PULSE 62
[2022-02-02] MEDS: Doxazosin 1 MG Tablet 2 MG GT (21:21)
[2022-02-02] MEDS: Atorvastatin Calcium 40 MG Tablet GT (21:21)
[2022-02-02] MEDS: QUEtiapine 25 MG Tablet PO (21:21)
[2022-02-02] MEDS: Lansoprazole 15 MG Capsule.DR 30 MG NG (21:21)
[2022-02-03] MEDS: Modafinil 200 MG Tablet 100 MG PO (05:10)
[2022-02-03 07:57] VITALS: PULSE 70
[2022-02-03] MEDS: Metoprolol Tartrate 25 MG Tablet GT ×2 (07:57→21:13)
[2022-02-03] MEDS: Glycerin/Hypromellose/PEG400 15 ml Bottle 2 DRP EACH EYE ×2 (07:57→21:11)
[2022-02-03] MEDS: Ensure Plus High Protein 120 ML LIQUID PO ×3 (07:58→17:14)
[2022-02-03] MEDS: Aspirin 81 MG TAB.CHEW GT (08:04)
[2022-02-03 09:05] VITALS: BP 150/67; PULSE 70; RESP 18; TEMP 36.6; O2SAT 96
[2022-02-03 10:00] VITALS: O2SAT 95
[2022-02-03 11:04] VITALS: BMI 25.8
--- NOTE | 2022-02-03 12:38 | PCM.CONS.C ---
Assessment & Plan Assessment/Plan (1) Irregular cardiac rhythm: PLAN: So far we do not have any evidence of documented A. fib. Patient has had multiple EKGs that reveal sinus rhythm with frequent PACs. From a cardiac standpoint it is reasonable to continue aspirin and check a 30-day event monitor. He can follow-up with us as an outpatient. We will sign off at this time. If we can be of any further assistance please let us know. Thank you much for letting us participate in the care of this patient. HPI Consult Data Date of Consult: 02/03/22 HPI Narrative Reason for Consultation: Irregular heartbeat HPI Narrative: CURTIS العراقي, is a 86 M who has been admitted to inpatient rehab after an embolic stroke. Patient was noted to have irregular heartbeat and EKGs have always revealed sinus rhythm with frequent PACs. Cardiology consult was requested to see if patient may have A. fib and if he would benefit from anticoagulation. [facility] Medical History (Updated 02/03/22 @ 09:[address] Nora Fuentes, ) Atrial bigeminy Essential hypertension Premature atrial contractions PVD (peripheral vascular disease) Sleep apnea Home Medications aspirin 81 mg chewable tablet 81 mg PO DAILY heart health 01/13/22 [History Last Taken Unknown] atorvastatin 40 mg tablet 40 mg feeding tube QHS cholesterol 01/13/22 [History Last Taken Unknown] budesonide 0.5 mg/2 mL suspension for nebulization 0.5 mg inhalation BID wheezing/sob 01/13/22 [History Last Taken Unknown] doxazosin 2 mg tablet (Cardura) 2 mg feeding tube BID BP 01/13/22 [History Last Taken Unknown] esomeprazole magnesium 40 mg granules delayed release for susp (Nexium Packet) 40 mg PO QHS heartburn 01/13/22 [History Last Taken Unknown] hydrochlorothiazide 12.5 mg tablet 12.5 mg PO DAILY BP 01/13/22 [History Last Taken Unknown] metoprolol tartrate 25 mg tablet 25 mg PO BID BP 01/13/22 [History Last Taken Unknown] polyethylene glycol 3350 17 gram oral powder packet (Miralax) 17 g PO BID PRN PRN Constipation 01/13/22 [History Last Taken Unknown] Allergy/AdvReac Type Severity Reaction Status Date / Time lisinopril AdvReac Severe cough Verified 12/27/21 07:29 Family History Father Emphysema of lung Mother Dena Gehrigs disease Surgical History History of cholecystectomy History of left knee replacement Social History household members: spouse Smoking Status: Never smoker alcohol intake: current details: occasional substance use type: does not use caffeine: Yes Type: coffee Number of servings: 1 Physical Exam Const alert HEENT normocephalic Eyes no scleral icterus Resp normal respiratory effort Cardio Cardio Narrative: Irregular rhythm Risk Stratification Risk Stratification Applicable: No Charges/Coding Visit Charges Inpatient E&M: 25642 Init Hosp L2 Objective Data Vital Signs: Vital Signs Temp Pulse Resp BP Pulse Ox O2 Del Method O2 Flow Rate 97.9 F 70 18 150/67 H 95 Room Air 2 02/03/22 09:05 02/03/22 09:05 02/03/22 09:05 02/03/22 09:05 02/03/22 10:00 02/03/22 09:05 01/25/22 21:00 FiO2 21 01/14/22 21:56 Oxygen Flow Rate (L/min) 2 Oxygen Delivery Method Room Air Weight: 194 lb 7.163 oz Body Mass Index (BMI) 25.8 Intake & Output: Intake and Output for Last 24 Hours 02/01/22 02/02/22 02/03/22 23:59 23:59 23:59 Intake Total 1790 / 1790 1640 / 1640 130 / 130 Output Total 700 / 700 900 / 900 Balance 1090 / 1090 740 / 740 130 / 130 Lab / Micro Data Result Diagrams: 02/01/22 05:20 02/01/22 05:20 Cardiology Labs/Tests Rhythm: EKG: ECHO: Stress Test: Cardiac Cath: PCI: CT Surgery: Holter monitor: EPS: PPM: CXR: Chest CT Scan:
--- NOTE | 2022-02-03 14:18 | CASEMGMT ---
Social Work Contacted to inquire about DC plans as was still schedule to attend therapy training tomorrow. confirmed plan for pt is TCU and can cancel therapy training. Notified IDT. Plan: DC to TCU 02/05 LUCIEN MoralesW
[2022-02-03 19:25] VITALS: BP 114/75; PULSE 84; RESP 16; TEMP 36.7; O2SAT 94
[2022-02-03 19:45] VITALS: O2SAT 94
[2022-02-03] MEDS: Doxazosin 1 MG Tablet 2 MG GT (21:12)
[2022-02-03] MEDS: Lansoprazole 15 MG Capsule.DR 30 MG NG (21:12)
[2022-02-03] MEDS: QUEtiapine 25 MG Tablet PO (21:12)
[2022-02-03] MEDS: Atorvastatin Calcium 40 MG Tablet GT (21:12)
[2022-02-03 21:13] VITALS: BP 114/75; PULSE 84
[2022-02-04] MEDS: Modafinil 200 MG Tablet 100 MG PO (05:36)
[2022-02-04 07:00] VITALS: BP 120/79; PULSE 82; RESP 18; TEMP 36.8; O2SAT 95
[2022-02-04] MEDS: Aspirin 81 MG TAB.CHEW GT (07:35)
[2022-02-04 07:36] VITALS: BP 120/79; PULSE 82
[2022-02-04] MEDS: Metoprolol Tartrate 25 MG Tablet GT ×2 (07:36→22:02)
[2022-02-04] MEDS: Ensure Plus High Protein 120 ML LIQUID PO ×3 (07:37→17:28)
[2022-02-04 17:00] VITALS: BMI 25.8
[2022-02-04 19:00] VITALS: BP 138/83; PULSE 63; RESP 16; TEMP 37; O2SAT 95
[2022-02-04 22:02] VITALS: BP 138/83; PULSE 63
[2022-02-04] MEDS: Doxazosin 1 MG Tablet 2 MG GT (22:02)
[2022-02-04] MEDS: Lansoprazole 15 MG Capsule.DR 30 MG NG (22:02)
[2022-02-04] MEDS: Atorvastatin Calcium 40 MG Tablet GT (22:02)
[2022-02-04] MEDS: QUEtiapine 25 MG Tablet PO (22:03)
[2022-02-05] MEDS: Modafinil 200 MG Tablet 100 MG PO (06:10)
[2022-02-05] MEDS: Ensure Plus High Protein 120 ML LIQUID PO (08:05)
[2022-02-05] MEDS: Aspirin 81 MG TAB.CHEW GT (08:05)
[2022-02-05 08:06] VITALS: BP 121/63; PULSE 60
[2022-02-05] MEDS: Metoprolol Tartrate 25 MG Tablet GT (08:06)
[2022-02-05 08:08] VITALS: BP 121/63; PULSE 60; RESP 16; TEMP 36.2; O2SAT 96
--- NOTE | 2022-02-05 14:05 | PCM.TXEXTCAR ---
Diet Diet Order/Speech Therapy: 01/25/22 09:21 Diet: Cardiac - Heart Healthy Food consistency:: Soft & Bite Sized Liquid Consistency:: Regular/Thin Type of Dietary Supplement:: Magic Cup Dessert Is pt able to select menu?: No Diet Comments: Magic Cup BID with lunch and dinner Routine Orders/Code Status Enema Type: Fleetz Enema Frequency: Daily PRN Suppository Type: Dulcolax 10mg Suppository Frequency: Daily PRN O2 Frequency: PRN Keep PO Greater than or Equal to (%): 90 Code Status: Full Code Wound(s) peg tube site: Wound Type: peg tube site Dressing Change: AntiMicrobial (Aquacel AG, etc) (No dressing needeed) Therapies Weight Bearing: Full weight bearing Problem/Diagnosis (1) Debility: Status: Acute Code(s): R53.81 - Other malaise (2) 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 Suspect AF. Not documented but, AF heard and palpated on PE. 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 I discussed the risks and benefits of anticoagulating based on PE only with his son, and dtr and all agree they would like him to be anticoagulated and will apply an event monitor when he is transferred to TCU. He plans on following up with Dr. Yap as an OP. Will start Eliquis 5 mg p.o. twice daily if the follow-up CT for intraparenchymal hemorrhage shows no active bleeding. (3) Aphasia complicating stroke: Status: Acute Plan: Expressive >> receptive. Being transferred to TCU for additional therapy prior to going home with family. (4) Right sided weakness: Status: Acute Code(s): R53.1 - Weakness (5) Orthostatic hypotension: Status: Resolved Code(s): I95.1 - Orthostatic hypotension (6) Dysphagia: Status: Acute Code(s): R13.10 - Dysphagia, unspecified Comment: Much improved. We are no longer using the PEG tube but, it can not be removed for 8 weeks after the day it was inserted at [facility]. (7) Urine retention: Status: Resolved Code(s): R33.9 - Retention of urine, unspecified Comment: He is continent of urine now and notifies nursing when he has to use the BR. (8) Irregular cardiac rhythm: Status: Acute Code(s): I49.9 - Cardiac arrhythmia, unspecified Comment: Has documented atrial bigeminy and frequent PAC's on EKG's. No AF on EKG......it resolves by the time the medical equipment technician arrives on the floor. I have examined him when he is in AF. (9) Cystitis: Status: Resolved Code(s): N30.90 - Cystitis, unspecified without hematuria (10) Aspiration pneumonia: Status: Resolved Code(s): J69.0 - Pneumonitis due to inhalation of food and vomit (11) Sleep disorder: Status: Suspected Code(s): G47.9 - Sleep disorder, unspecified Comment: He was very difficult to arouse and keep awake for therapy when he first arrived on rehab. He apparently does this at home. He takes naps during the day. He has been diagnosed with COLTON in the past and he is not able to tolerate a mask. Overnight trending pulse ox this admission showed no desaturation events > 60 sec. He is taking Provigil to keep him awake during the day and Seroquel at night to help with sleep and agitation. Agitation totally resolved when he started sleeping better. (12) Presence of externally removable percutaneous endoscopic gastrostomy (PEG) tube: Status: Acute Code(s): Z93.1 - Gastrostomy status Plan: Continue flushing but, no longer being used for feeding. Cannot be removed until March 08 due to increased risk for bleeding. (13) Hyperlipidemia: Status: Acute Code(s): E78.5 - Hyperlipidemia, unspecified Plan: Continue statin (14) Glucose intolerance (impaired glucose tolerance): Status: Acute Code(s): R73.02 - Impaired glucose tolerance (oral) Plan: Continue carb control diet. Plan 1. DC to TCU today. 2. Needs an event monitor when he gets to TCU. 3. Follow up with Dr. Yap following DC from TCU. 4. CT head today for follow up on hemorrhagic conversion post TPA. IF negative then will start Eliquis 5 mg BID 5. Follow up with Dr. Kellogg post DC from TCU. 6. Follow up with Dr. Blankenship for sleep disorder/possible narcolepsy. Continue Provigil for now. Allergies/Procedures Done in Hospital Allergies lisinopril Adverse Reaction (Severe, Verified 12/27/21 07:29) cough Type of Care/Length of Stay Estimated LOS: Convalescent Care Less Than 30 days Type of Care Needed: Skilled Rehab Potential: Good Prognosis: Good Additional Orders/Day of Discharge Additional Orders: 1. Please order a 30 day event monitor. H&P will serve as current which was dated: 01/14/22 Day of Discharge: 02/05/22 Dietary and Speech Recommendations Dietitian Recommendations/Changes: -Continue Cardiac diet with texture/consistency per ST recommendations -Continue Ensure Plus High Protein TID supplement to help maintain stable weight. -RD will order Magic Cup BID with lunch and dinner to help maintain stable weight. Speech Linguistic Eval Summary: Severe expressive/receptive aphasia. L gaze preference noted. Oriented to first name via yes response - goes by Danny. Answered yes/no questions re: self/environment w/ 5/8 accuracy. Answered simple concept yes/no ?s w/ 5/8 accuracy. Executed 0/4 1 step commands independently, increased to 3/4 w/ model and 4/4 w/ model and hand over hand. Automatic speech tasks - counting 1-5 patient stated 3 1x, attempted to tap fingers to the beat of counting. No attempt to initiate/respond to other automatic sequences. ID'd picture from an array of 2 (animals) w/ 12/16 accuracy. ID'd word from an array of 2 w/ 15/20 accuracy. Patient noted to be impulsive w/ pointing. Repetition impaired. Confrontation naming 0/10. Verbal expression is marked by fluent nonsense speech production w/ occasional intelligible words. Follow Up Care Please Follow Up With: Elton Yap MD When: following DC from TCU Please Follow Up With: Ernie Kellogg MD When: Following DC from TCU Please Follow Up With: Fast,Cindy, DO When: 7-10 days after DC from TCU. Discharge Plan Admission Admit Date/Time: 01/13/22 14:00 Primary Reason for Your Visit: Debility secondary to left MCA embolic CVA. Attending Provider: Nora Fuentes Primary Care Provider: Cindy Kent Consulting Providers: Thalia Crandall Discharge Orders/Prescriptions Prescriptions: New albuterol sulfate 2.5 mg /3 mL (0.083 %) Solution For Nebulization 2.5 mg inhalation Q4H PRN PRN (Reason: WHEEZING) Qty: 1 0RF lansoprazole 15 mg Capsule,Delayed Release(Dr/Ec) 30 mg NG QHS Qty: 0 0RF bisacodyl 10 mg Suppository 10 mg IA .PRN X 1 PRN (Reason: Constipation) Qty: 0 0RF Ensure Plus High Protein 0.08 gram-1.5 kcal/mL Liquid 120 ml PO TIDCM Qty: 0 0RF modafinil 200 mg Tablet 100 mg PO DAILY@0600 Qty: 0 0RF magnesium hydroxide 400 mg/5 mL Suspension 30 ml PO .PRN X 1 PRN (Reason: Constipation) Qty: 0 0RF Artificial Tears(um-fmnn-hgor) 1-0.2-0.2 % Drops 2 drp EACH EYE Q1H PRN (Reason: DRY EYES) Qty: 0 0RF quetiapine 25 mg Tablet 25 mg PO 2100 Qty: 0 0RF Continued polyethylene glycol 3350 [Miralax] 17 gram Powder In Packet 17 g PO BID PRN PRN (Reason: Constipation) metoprolol tartrate 25 mg Tablet 25 mg PO BID aspirin 81 mg Tablet,Chewable 81 mg PO DAILY Discontinued budesonide 0.5 mg/2 mL Suspension For Nebulization 0.5 mg INHALATION BID esomeprazole magnesium [Nexium Packet] [address] For Susp In Packet 40 mg PO QHS hydrochlorothiazide 12.5 mg Tablet 12.5 mg PO DAILY No Action atorvastatin 40 mg Tablet 40 mg feeding tube QHS doxazosin [Cardura] 2 mg Tablet 2 mg feeding tube BID Referrals / Follow Up: Cindy Kent DO [Primary Care Provider] - Disposition Disposition (needs filled in before D/C Order can be placed): Senior Living Facility
--- NOTE | 2022-02-05 14:06 | CT_ITS ---
EXAM: CT HEAD WITHOUT INTRAVENOUS CONTRAST CLINICAL INDICATION: cephalgia post intracerebral hemorrhage TECHNIQUE: Multiple axial images were obtained of the head without intravenous contrast. This CT exam was performed using one or more of the following dose reduction techniques: automated exposure control, adjustment of the mA and/or kV according to patient size, and/or use of iterative reconstruction technique. This report was created using [employer] report generation technology. COMPARISON: CT Head dated 12/27/2021 FINDINGS: BRAIN AND EXTRA-AXIAL SPACES: Edematous change noted to involve the left left operculum associated with loss of the amaya-white matter density differentiation and effacement of the cortical sulci consistent with a chronic nonhemorrhagic left MCA infarct. Areas of diminished white matter density noted within both cerebral hemispheres suggestive of chronic microvascular change. Prominence of the cortical sulci and ventricles related to volume loss change. No intracranial mass or mass effect. Posterior fossa structures are unremarkable. Basal cisterns are patent. BONES/JOINTS: Normal. No discrete lytic or blastic abnormalities. SINUSES: Unremarkable as visualized. No acute sinusitis. MASTOID AIR CELLS: Normal. Clear. ORBITS: Visualized globes, extraocular muscles, optic nerves and retrobulbar fat appear unremarkable. CT/Brain/Head without Contrast IMPRESSION: Left MCA chronic nonhemorrhagic infarct. Electronically Signed: Chuck George MD at 14:58 EST ,
--- NOTE | 2022-02-05 14:58 | DS.PCM_ITS ---
Providers Date of Admission: 01/13/22 Date of Discharge: 02/05/22 Primary Care Physician: Dr. Cindy Kent DO Consultations 02/03/22 10:07 Consult: Cardiology Routine Consulting Provider: Thalia Crandall Reason for Consult: embolic CVA with atrial dysrhythmia EMERGENT Consult: No MD Notified: Yes Date Notified: 02/03/22 Time Notified: 10:07 Method of Notification: Text Reason For Visit: STROKE Diagnosis Discharge Diagnosis (1) Debility: Status: Acute Code(s): R53.81 - Other malaise (2) Cerebrovascular accident involving left middle cerebral artery territory: Status: Acute Code(s): I63.512 - Cerebral infarction due to unspecified occlusion or stenosis of left middle cerebral artery Plan: He is S/P thrombectomy (3) Aphasia complicating stroke: Status: Acute Plan: Expressive >> receptive. Being transferred to TCU for additional therapy prior to going home with family. (4) Right sided weakness: Status: Acute Code(s): R53.1 - Weakness (5) Orthostatic hypotension: Status: Resolved Code(s): I95.1 - Orthostatic hypotension (6) Dysphagia: Status: Acute Code(s): R13.10 - Dysphagia, unspecified (7) Urine retention: Status: Resolved Code(s): R33.9 - Retention of urine, unspecified (8) Irregular cardiac rhythm: Status: Acute Code(s): I49.9 - Cardiac arrhythmia, unspecified (9) Cystitis: Status: Resolved Code(s): N30.90 - Cystitis, unspecified without hematuria (10) Aspiration pneumonia: Status: Resolved Code(s): J69.0 - Pneumonitis due to inhalation of food and vomit (11) Sleep disorder: Status: Suspected Code(s): G47.9 - Sleep disorder, unspecified (12) Presence of externally removable percutaneous endoscopic gastrostomy (PEG) tube: Status: Acute Code(s): Z93.1 - Gastrostomy status Plan: Continue flushing but, no longer being used for feeding. Cannot be removed until March 08 due to increased risk for bleeding. (13) Hyperlipidemia: Status: Acute Code(s): E78.5 - Hyperlipidemia, unspecified Plan: Continue statin (14) Glucose intolerance (impaired glucose tolerance): Status: Acute Code(s): R73.02 - Impaired glucose tolerance (oral) Plan: Continue carb control diet. Plan 1. DC to TCU today. 2. Needs an event monitor when he gets to TCU. 3. Follow up with Dr. Yap following DC from TCU. 4. CT head today for follow up on hemorrhagic conversion post TPA. IF negative then will start Eliquis 5 mg BID 5. Follow up with Dr. Kellogg post DC from TCU. 6. Follow up with Dr. Blankenship for sleep disorder/possible narcolepsy. Continue Provigil for now. Medications at Discharge Home Medications aspirin 81 mg chewable tablet 81 mg PO DAILY heart health 01/13/22 apixaban 5 mg tablet (Eliquis) 5 mg PO BID 30 days #60 tabs 02/08/22 atorvastatin 40 mg tablet 40 mg PO QHS 30 days #30 tabs 02/08/22 doxazosin 1 mg tablet 2 mg PO BID 30 days #120 tabs 02/08/22 metoprolol tartrate 25 mg tablet 25 mg PO BID 30 days #60 tabs 02/08/22 pantoprazole 40 mg tablet,delayed release 40 mg PO QHS 30 days #30 tabs 02/08/22 quetiapine 25 mg tablet 25 mg PO QHS 30 days #30 tabs 02/08/22 Hospital Course Operations - Procedures - (12/27/21 Thrombectomy L MCA at [facility]. PEG insertion 01/11/22 at [facility].) Summary of Care Provided Minutes Spent on Discharge: 40 Hospital Course: CURTIS العراقي, is a 86 YO M with a past medical history of hypertension, hyperlipidemia, peripheral vascular disease, atrial bigeminy, sleep apnea (he refuses CPAP) and premature atrial contractions. ? Mr. العراقي presented to the emergency department at [facility] on 12/27/2021 with right upper extremity weakness, aphasia and eyes deviated to the left.? The initial NIH score was 20.? Stat noncontrast CT of the brain showed no acute findings.? CTA of the head and neck showed proximal occlusion of the distal left M1 segment proximal to the M2 bifurcation.? There was presumed thrombus.? There was no high-grade stenosis in the neck but he did have moderate plaque.? Teleneurology was consulted and tPA was recommended and given.? He was transferred to [facility] for large vessel occlusion and possible neuroradiology intervention to remove the thrombus.? Upon arrival to [facility] his NIH was 28.? A stat CT head showed early hypoattenuation in the left insula.? He went directly to the OR for intervention and achieved TICI 2c revascularization.? A CT head 24 hours following tPA showed an evolving infarct in the left MCA distribution now involving the majority of the parenchyma in a vascular distribution.? He also had some hemorrhagic transformation.? CTA of the head/neck on 12/30/2021 showed no significant stenosis of the major arteries of the brain and neck.? The previously occluded left M1 MCA segment was now patent.? Echocardiogram was done at [facility] and showed a normal EF at 55 to 60%.? There was no thrombus noted and no significant valvular heart disease.? His LDL was 98 and the hemoglobin A1c was 5.8.? EEG on 12/31 was negative for seizure activity. He had a FEES that showed vocal cord adduction with minimal glottic space.? No acute intervention by ENT was required.? He had persistent severe dysphagia and failed his MBS (they were unable to keep him awake to complete the study).? PEG tube was placed on 01/11/2022.? He was evaluated by PT/OT/ST and transfer to inpatient rehab was recommended.? On 01/13/2022 he was transferred to the acute inpatient rehab unit at [facility] for 3 hours of therapy daily to restore function/independence at or near his level prior to the stroke. He was orthostatic at admission to rehab secondary to dehydration. IV fluids were ordered and the diuretic was discontinued. Orthostatic hypotension resolved. Upon arriving at rehab he was retaining urine and he was also incontinent. Both retention and incontinence resolved prior to DC to TCU. He was initially quite impulsive, agitated and he was not able to sleep at night. During the day he was extremely difficult to wake up......even with a sternal rub. His stated this is the way he has been for many years. Provigil 100 mg daily was started and he was able to be awake to do his therapy. He was started on Seroquel for agitation and insomnia and when his sleep improved the agitation resolved. Other Complications included cystitis and aspiration pneumonia and both resolved with antibiotics. He had a MBS on 01/24/22 and he was started on a diet. At the time of DC from rehab he is eating well and we have not been using the PEG. He has been very cooperative and less impulsive. He still has severe aphasia but, the nurses are able to understand what he wants.......he points to what he needs. At the time of discharge he is ambulating up to 315 feet on uneven surfaces with a front wheeled walker at contact-guard assist. He is supervision/set up for eating and standby assist for grooming. He requires only minimal assistance with bathing and upper body dressing. He is standby assist with lower body dressing, toileting and toilet transfer. Additional therapy was recommended prior to going home and he was transferred to TCU on 02/05/22. Prior to DC from rehab Danny had a NC CTB to follow up the hemorrhagic transformation post tPA. The CT scan showed no sign of hemorrhage. He was seen by Dr. Crandall while in rehab for possible anticoagulation since he has been in AF at times when I have examined him. Unfortunately by the time the instrument/control technician gets up to the rehab unit he is back in a sinus rhythm or atrial bigeminy. He has also had EKG showing frequent PACs. Dr. Crandall did not recommend anticoagulation but instead recommended a 30-day event monitor at discharge. I discussed anticoagulating with his family. The risks of anticoagulation were discussed. The stroke caused devastating expressive aphasia. His family stated they have thought he had TIA's in the past because he has had stroke sx before. There is no contraindication for anticoagulation and his family thought that even though we have not been able to catch him in AF on an EKG they trust that he has been in AF when I have examined him and they would like him to be anticoagulated. They agree with obtaining a 30 day event monitor while he is on anticoagulation. They will follow up with Dr. Yap at the conclusion of the 30 day monitor to review the results and options for continued care based on the results of the monitor. He will also follow up with Dr. Kellogg from neurology. Physical Exam Const alert and no apparent distress Constitutional Narrative: Sitting in the recliner at the bedside. General Appearance: cooperative HEENT moist oral mucous membranes Eyes PERRL and EOMs intact bilaterally Eyes Narrative: no scleral icterus and no DC Neck supple, no JVD, No nodes and no carotid bruits General: trachea midline Resp normal respiratory effort, normal air movement and clear to auscultation bilaterally Effort and Inspection: Negative for tachypneic, respiratory distress or labored Cardio regular rate, S1 normal heart sound, S2 normal heart sound, no murmurs, no rub and no gallops Cardio Narrative: Frequent premature beats. GI normal to inspection, nondistended, normoactive bowel sounds, soft to palpation and non-tender GI Narrative: No guarding with palpation. Extremity no calf tenderness General Extremity: Negative for edema Skin General Skin Exam: no breakdown Rashes: no rashes Neuro Neuro Narrative: Still with marked expressive aphasia >> receptive aphasia. He does not always understand what you want him to do.......he is able to mimic what the therapist wants him to do. Doing better with self care/ADL's. He is much less impulsive and he is calm with no agitation. He is always cooperative and never refuses to do therapy. He is sleeping well at night and is awake and able to do therapy during the day. He is ambulating > 300 ft on uneven surfaces with a FWW at [facility]. Psych cooperative Psych Narrative: Less impulsive. Not agitated and no aggressive behavior since he has been sleeping well at night (with the addition of Seroquel to the drug regmien). Appearance: appropriate Weight / BMI Weight Weight: 195 lb 15.855 oz Body Mass Index (BMI) 25.8 ABG / Lab / Microbiology Data Result Diagrams: 02/01/22 05:20 02/01/22 05:20 Microbiology: Microbiology 02/05/22 Unknown Nasal Secretion SARS-CoV-2 Antigen (Rapid) - Final 01/16/22 13:14 Urine Catheter - Catheter Urine Culture - Final Enterococcus faecalis D/C Instructions Please Follow Up With: Elton Yap MD Meaningful Use Info Meaningful Use Diagnoses (Choose all that apply): Ischemic CVA CVA Therapy Assessed for PT,OT and/or ST?: Yes Ischemic Stroke Antithrombotic order at d/c?: Yes Dx of Atrial fib/flutter?: No Anticoagulant at discharge?: Yes Statins at discharge?: Yes Primary Dx Acute Ischemic CVA?: Yes IV tPA ordered during stay?: No Reason IV t-PA not ordered: Treatment not Indicated (He had TPA on the day of the stroke which was 12/27/21. He has been in acute rehab.) Discharge Plan Admission Admit Date/Time: 01/13/22 14:00 Primary Reason for Your Visit: Debility secondary to left MCA embolic CVA. Attending Provider: Nora Fuentes Primary Care Provider: Cindy Kent Consulting Providers: Thalia Crandall Discharge Orders/Prescriptions Prescriptions: Continued aspirin 81 mg Tablet,Chewable 81 mg PO DAILY Discontinued budesonide 0.5 mg/2 mL Suspension For Nebulization 0.5 mg INHALATION BID esomeprazole magnesium [Nexium Packet] [address] For Susp In Packet 40 mg PO QHS hydrochlorothiazide 12.5 mg Tablet 12.5 mg PO DAILY No Action Eliquis 5 mg Tablet 5 mg PO BID 30 Days Qty: 60 0RF quetiapine 25 mg Tablet 25 mg PO QHS 30 Days Qty: 30 0RF atorvastatin 40 mg Tablet 40 mg PO QHS 30 Days Qty: 30 0RF doxazosin 1 mg Tablet 2 mg PO BID 30 Days Qty: 120 0RF pantoprazole 40 mg Tablet,Delayed Release (Dr/Ec) 40 mg PO QHS 30 Days Qty: 30 0RF metoprolol tartrate 25 mg Tablet 25 mg PO BID 30 Days Qty: 60 0RF Referrals / Follow Up: Bess Montes De Oca [Other] - 02/08/22 3:40 pm Cindy Kent DO [Primary Care Provider] - Disposition Disposition (needs filled in before D/C Order can be placed): [facility] Charges/Coding Visit Charges Inpatient E&M: 49428 Disch Hosp
[2022-02-05 15:33] VITALS: BP 121/63; PULSE 60; RESP 16; TEMP 36.2; O2SAT 96
--- NOTE | 2022-02-05 15:33 | NURSING ---
discharged to TCU report called to [facility]
[2022-02-05 15:36] VITALS: BMI 25.8
== END 2022-02-05 15:35 | disposition skilled nursing facility (03) | DRG 56 ==
PROVIDERS: Admitting Provider Internal Medicine; PCP Internal Medicine; Visit Provider Internal Medicine
DX: I69.351 Hemiplegia and hemiparesis following cerebral infarction affecting right dominant side (principal); J69.0 Pneumonitis due to inhalation of food and vomit; I73.9 Peripheral vascular disease, unspecified; Z93.1 Gastrostomy status; I69.320 Aphasia following cerebral infarction; I10 Essential (primary) hypertension; E78.5 Hyperlipidemia, unspecified; I95.1 Orthostatic hypotension; I69.391 Dysphagia following cerebral infarction; G47.33 Obstructive sleep apnea (adult) (pediatric); I69.392 Facial weakness following cerebral infarction; N30.90 Cystitis, unspecified without hematuria; I49.1 Atrial premature depolarization; B95.2 Enterococcus as the cause of diseases classified elsewhere; R33.9 Retention of urine, unspecified; Z23 Encounter for immunization; Z79.82 Long term (current) use of aspirin; Z79.899 Other long term (current) drug therapy
CPT/HCPCS: 36415; 70450; 71046; 73502; 74230; 80048; 80053; 81001; 82962; 83036; 83735; 84100; 85025; 85027; 87077; 87086; 87088; 87186; 87811; 92507; 92523; 92526; 92610; 92611; 93005; 94640; 94762; 97110; 97112; 97116; 97162; 97166; 97530; 97535; 97802; 97803; 99251; G0008; J7030; 90686; G0463

== ENCOUNTER 2022-02-05 15:20 | Inpatient (IN) | payer MEDICARE, BC, SELFPAY ==
[2022-02-05 15:55] VITALS: BMI 26.4
[2022-02-05 16:00] VITALS: BP 143/87; PULSE 48; RESP 16; TEMP 36.2; O2SAT 94
[2022-02-05 16:06] VITALS: BP 143/87; PULSE 48; RESP 16; TEMP 36.2; O2SAT 94
--- NOTE | 2022-02-05 18:20 | NURSING ---
Educated pt and family on Code status. Pt wishes to be a DNRCC-A no Intubation.
[2022-02-05] MEDS: APIXABAN 5 MG TABLET PO (18:43)
[2022-02-05 18:47] VITALS: PULSE 58
[2022-02-05] MEDS: Doxazosin 1 MG Tablet 2 MG GT (18:47)
[2022-02-05] MEDS: Ensure Plus High Protein 120 ML LIQUID PO (18:48)
--- NOTE | 2022-02-05 19:44 | HP.PCM_ITS ---
HPI - General General Date of Admission: 02/05/22 Date of Service: 02/07/22 Chief Complaint: Here for rehab. HPI Narrative 12/27/2021 CURTIS العراقي, is a 86 Male who presents to [facility] Emergency Department with weakness, aphasia, eyes deviated to left. CT brain negative. CTA head/neck showed proximal occlusion of distal left M1 proximal M2 bifurcation, presumed thrombus. TPA given. Transfer to [facility], went to OR for revascularization. Repeat CT brain showed large left MCA stroke, with some hemorrhagic transformation. EEG negative for seizure. 12/30/2021 Doxazosin 2mg started for urinary retention. 01/11/2022 Failed MBS, PEG placed. 01/14/2022 Admit to Inpatient Rehab. PT/OT/ST. IV fluids, stop HCTZ for dehydration. 01/17/2022 Decrease Doxazosin to 2mg qhs, recheck orthostatic vital signs. 01/18/2022 Agitated, impulsive. Augmentin 500mg q8 x 7 days for urinary tract infection. Provigil for somnolence. 01/20/2022 NPO, Tubefed. Agitated, Haldol, Seroquel ordered. 01/23/2022 Severe expressive aphasia. Sleeping well with Seroquel qhs. 01/24/2022 Discontinue PRN Haldol, agitation improved. 01/26/2022 Augmentin 875mg bid x 5 days for right middle lobe aspiration pneumonia. 01/31/2022 Consider anticoagulation for paroxysmal atrial fibrillation. 02/02/2022 TCU for more therapy prior to going home. 02/03/2022 Dr. Crandall recommended 30 day monitor to evaluate premature atrial contractions versus paroxysmal atrial fibrillation. 02/05/2022 Admit to TCU with debility, here for rehabilitation, strengthening, prior to discharge home with . [facility] Medical History Atrial bigeminy Essential hypertension Premature atrial contractions PVD (peripheral vascular disease) Sleep apnea Home Medications aspirin 81 mg chewable tablet 81 mg PO DAILY heart health 01/13/22 [History Last Taken Unknown] atorvastatin 40 mg tablet 40 mg feeding tube QHS cholesterol 01/13/22 [History Last Taken Unknown] doxazosin 2 mg tablet (Cardura) 2 mg feeding tube BID BP 10/20/22 [History Last Taken Unknown] metoprolol tartrate 25 mg tablet 25 mg PO BID BP 01/13/22 [History Last Taken Unknown] polyethylene glycol 3350 17 gram oral powder packet (Miralax) 17 g PO BID PRN PRN Constipation 01/13/22 [History Last Taken Unknown] albuterol sulfate 2.5 mg/3 mL (0.083 %) solution for nebulization 2.5 mg (3 mL) inhalation Q4H PRN PRN WHEEZING #1 mL 02/05/22 [Rx Last Taken Unknown] apixaban 5 mg tablet (Eliquis) 5 mg PO BID Blood Thinner 02/05/22 [History Last Taken Unknown] bisacodyl 10 mg rectal suppository 10 mg WA .PRN X 1 PRN Constipation #0 ea 01/25 05/18 [Rx Last Taken Unknown] food supplemt, lactose-reduced 0.08 gram-1.5 kcal/mL oral liquid (Ensure Plus High Protein) 120 ml PO TIDCM Supplement 02/05/22 [History Last Taken Unknown] lansoprazole 15 mg capsule,delayed release 30 mg NG QHS GERD 02/05/22 [History Last Taken Unknown] magnesium hydroxide 400 mg/5 mL oral suspension 30 ml PO .PRN X 1 PRN Constipation #0 mL 02/05/22 [Rx Last Taken Unknown] modafinil 200 mg tablet 100 mg PO DAILY@0600 Sleep 02/05/22 [History Last Taken Unknown] peg [id number] 1 %-0.2 %-0.2 % eye drops (Artificial Tears ([id number])) 2 drp EACH EYE Q1H PRN DRY EYES #0 mL 02/05/22 [Rx Last Taken Unknown] quetiapine 25 mg tablet 25 mg PO 2100 Mood 02/05/22 [History Last Taken Unknown] Allergy/AdvReac Type Severity Reaction Status Date / Time lisinopril AdvReac Severe cough Verified 12/27/21 07:29 Family History Father Emphysema of lung Mother Dena Gehrigs disease Surgical History History of cholecystectomy History of left knee replacement Social History household members: spouse Smoking Status: Never smoker alcohol intake: current details: occasional substance use type: does not use caffeine: Yes Type: coffee Number of servings: 1 ROS Constitutional Constitutional: Denies chills, fever(s) or weight gain ENT HEENT: Denies headache(s), nasal congestion or nasal discharge Cardiovascular Cardiovascular: Denies chest pain or palpitations Respiratory/Chest Respiratory/Chest: Denies cough, excessive phlegm production or shortness of breath with exertion Gastrointestinal Gastrointestinal: Denies abdominal pain, nausea or vomiting Genitourinary Genitourinary: Denies dysuria Musculoskeletal Musculoskeletal: Denies joint pain or joint swelling Integumentary Integumentary: Denies rash or wounds Neurologic Neurologic: Denies focal weakness, numbness or tingling Psychiatric Psychiatric: Denies anxiety, auditory hallucinations, depression, homicidal ideation or suicidal ideation Vital Signs Vital Signs Vital Signs: 02/05/22 16:06 02/05/22 16:00 02/05/22 15:55 Temperature 97.1 F L 97.1 F L Temperature Source Temporal Temporal Pulse Rate 48 L 48 L Pulse Rhythm Regular Pulse Strength Normal (2+) Respiratory Rate 16 16 Respiratory Effort Normal Non-Labored Respiratory Depth Normal Respiratory Pattern Normal Blood Pressure 143/87 H 143/87 H Blood Pressure Mean 105 105 Blood Pressure Source Monitor Monitor Blood Pressure Position Semi-Fowlers Semi-Fowlers Blood Pressure Location Left Arm Left Arm Pulse Ox 94 94 Oxygen Delivery Method Room Air 02/05/22 18:47 Temperature Temperature Source Pulse Rate 58 L Pulse Rhythm Pulse Strength Respiratory Rate Respiratory Effort Respiratory Depth Respiratory Pattern Blood Pressure Blood Pressure Mean Blood Pressure Source Blood Pressure Position Blood Pressure Location Pulse Ox Oxygen Delivery Method Weight Weight: 88.36 kg Physical Exam Const alert General Appearance: cooperative HEENT normocephalic Eyes PERRL and EOMs intact bilaterally Neck supple, no JVD and no carotid bruits Resp normal respiratory effort, normal air movement and clear to auscultation bilaterally Cardio regular rate and regular rhythm GI normal to inspection, nondistended, normoactive bowel sounds, non-tender and non-distended Extremity normal capillary refill General Extremity: Negative for edema Skin no rashes or lesions noted General Skin Exam: no breakdown Neuro Neuro Narrative: Expressive aphasia. Psych affect normal Appearance: appropriate Results Lab / Micro Data Result Diagrams: 02/06/22 06:55 02/06/22 06:55 Assessment & Plan Assessment/Plan (1) Debility: (2) Left middle cerebral artery stroke: (3) Right hemiparesis: (4) Dysphagia: (5) Expressive aphasia: (6) Hypertension: (7) Hyperlipidemia: (8) Peripheral vascular disease: (9) Sleep apnea: (10) Benign prostatic hyperplasia: (11) GERD (gastroesophageal reflux disease): PLAN: Plan 86 year old male with below past medical history hospitalized for left MCA stroke, underwent TPA, and thrombectomy, admitted to [facility] 12/26/2021, then transferred to TCU with debility, here for rehabilitation, strengthening, prior to discharge home with . * Debility - PT/OT. * Dysphagia - ST. * Pain - Tylenol 1000mg q6h prn pain (1-10). * Bowel - Miralax 17gm bid prn, MOM 30ml daily prn, Dulcolax 10mg pr daily prn. * Adult immunization - Administer pneumonia vaccine, covid19 vaccine, flu vaccine as appropriate. * DVT prophylaxis - Not necessary, already anticoagulated. * Shortness of breath - Albuterol 2.5mg neb q4h prn. * Presumed atrial fibrillation - Metoprolol 25mg bid, Eliquis 5mg bid. * Left MCA stroke - Aspirin 81mg daily. * Hyperlipidemia - Atorvastatin 40mg qhs. * BPH - Doxazosin 2mg bid. * Nutrition - Ensure Plus high protein 120ml po tidcm. * GERD - Lansoprazole 30mg daily. * Somnolence - Provigil 100mg daily. * Dry eyes - Artificial tears 2gtt q1h prn. * Insomnia - Seroquel 25mg qhs, stable chronic use, GDR not recommended.
[2022-02-05] MEDS: Pantoprazole Sodium 40 MG Tablet PO (21:59)
[2022-02-05] MEDS: QUEtiapine 25 MG Tablet PO (21:59)
[2022-02-05] MEDS: Atorvastatin Calcium 40 MG Tablet PO (21:59)
[2022-02-06 05:37] VITALS: BP 127/89; PULSE 87
[2022-02-06] MEDS: Metoprolol Tartrate 25 MG Tablet PO ×2 (05:37→16:36)
[2022-02-06] MEDS: Doxazosin 1 MG Tablet 2 MG PO ×2 (05:37→16:36)
[2022-02-06] MEDS: Modafinil 200 MG Tablet 100 MG PO (05:38)
[2022-02-06] MEDS: APIXABAN 5 MG TABLET PO ×2 (05:38→16:35)
--- NOTE | 2022-02-06 06:57 | NURSING ---
Peg tube flushed with 100mL of tap water. Patient tolerated well.
[2022-02-06 07:11] LABS: Absolute Lymphocyte Count 1.88 X10^3/uL (0.83-4.51); Absolute Neutrophil Count 4.2 X10^3/uL (2.0-7.7); Basophil# 0.05 X10^3/uL; Basophil% 0.7 % (0-1); Eosinophil# 0.22 X10^3/uL; Eosinophils% 3.1 % (0-5); Hematocrit 39.9 % (40-54); Hemoglobin 13.6 g/dL (13.0-16.5); Lymphocyte # 1.88 X10^3/ul (0.83-4.51); Lymphocyte % 26.9 % (19-41); Mean Corp Hgb Conc 34.1 g/dL (32-36); Mean Corpuscular Hgb 33.2 pg (27.0-32.0); Mean Corpuscular Volume 97.3 fL (80-94); Mean Platelet Vol. 9.3 fl (6.2-12.0); Monocyte# 0.58 X10^3/uL; Monocyte% 8.3 % (0-10); NRBC Flagged by Analyzer 0 % (0-5); Neutrophil # 4.19 X10^3/uL (2.7-7.7); Neutrophil % 59.9 % (47-70); Platelet Count 176 K/mm3 (150-450); RBC Distribution Width CV 13.8 % (11.6-14.6); RBC Distribution Width SD 49.6 fl (35.1-43.9)
[2022-02-06 07:31] LABS: Anion Gap 7 (5-15); BUN 14 mg/dL (7-18); BUN/Creat Ratio 21.3 RATIO (10-20); Calcium,Total 8.4 mg/dL (8.5-10.1); Chloride 104 mmol/L (98-107); Creatinine, Serum 0.66 mg/dL (0.70-1.30); EST Glomerular Filtration Rate 123 mL/min (>60); Est Glom Filt Rate - Afr Amer 149 mL/min (>60); Estimated Creatinine Clearance 60.36 ml/min; Glucose 119 mg/dL (74-106); Sodium Level 137 mmol/L (136-145)
[2022-02-06] MEDS: Aspirin 81 MG TAB.CHEW PO (08:35)
[2022-02-06] MEDS: Ensure Plus High Protein 120 ML LIQUID PO (08:35)
[2022-02-06] MEDS: Tuberculin,Purif.prot.deriv. 50 TU/ML Vial 0.1 ML ID (10:39)
[2022-02-06 16:00] VITALS: BP 134/74; PULSE 94; RESP 18; TEMP 36.3; O2SAT 93
[2022-02-06 16:36] VITALS: PULSE 92
--- NOTE | 2022-02-06 21:05 | NURSING ---
Peg tube flushed with 100mL of tap water. Patient tolerated well.
[2022-02-06] MEDS: Pantoprazole Sodium 40 MG Tablet PO (21:55)
[2022-02-06] MEDS: Atorvastatin Calcium 40 MG Tablet PO (21:55)
[2022-02-06] MEDS: QUEtiapine 25 MG Tablet PO (21:55)
[2022-02-07] MEDS: Modafinil 200 MG Tablet 100 MG PO (05:36)
[2022-02-07 05:37] VITALS: BP 154/88; PULSE 88
[2022-02-07] MEDS: Metoprolol Tartrate 25 MG Tablet PO ×2 (05:37→17:58)
[2022-02-07] MEDS: Doxazosin 1 MG Tablet 2 MG PO ×2 (05:37→17:58)
[2022-02-07] MEDS: APIXABAN 5 MG TABLET PO ×2 (05:37→17:59)
--- NOTE | 2022-02-07 05:45 | NURSING ---
New cardiac strip placed for monitor d/t poor skin contact. Monitor reading. Left eye red, patient continuously itching while this nurse giving care. Will leave note for Dr. Monroe.
--- NOTE | 2022-02-07 05:48 | NURSING ---
Peg tube flushed with 100mL of tap water. Patient tolerated well.
[2022-02-07 05:49] VITALS: PULSE 88; RESP 16; O2SAT 96
[2022-02-07] MEDS: Ensure Plus High Protein 120 ML LIQUID PO ×3 (07:49→18:01)
[2022-02-07] MEDS: Aspirin 81 MG TAB.CHEW PO (07:49)
[2022-02-07] MEDS: Ciprofloxacin 0.3% 2.5ml Bottle 1 DRP LEFT EYE ×4 (09:04→21:56)
--- NOTE | 2022-02-07 09:24 | NURSING ---
TALKED TO PT MEL ABOUT APPOINTMENT ON 02/08/22 IN [place]. STATED SHE WANTED THE APPOINTMENT CANCELED AND WILL RESCHEDULE IT LATER OR GET LOCAL DOCTOR. CALLED AND CANCELED APPOINTMENT FOR PT. RN AWARE
--- NOTE | 2022-02-07 10:55 | NURSING ---
Fiber Worker Note; Activity Asset Complete w/family help
--- NOTE | 2022-02-07 11:03 | PHA.CONS_ITS ---
TCU RX Drug Regimen Review Subjective: TCU Admission. 86 YOM presented to the ER with weakness, aphagia, eyes deviate to left. Transferred to [facility] and hospitalized for left MCA stroke, underwent TPA, and thrombectomy, admitted to [facility] 12/26/2021. Admitted to TCU with debility for strengthening and rehabilitation. Objective: Allergies lisinopril Adverse Reaction (Severe, Verified 12/27/21 07:29) cough Current Medications Generic Name Dose Route Start Last Admin Trade Name Freq PRN Reason Stop Dose Admin Acetaminophen 1,000 mg 02/05/22 20:02 Acetaminophen 500 Mg Tablet PO Q6H PRN PRN Pain Score 1-10 Albuterol Sulfate 2.5 mg 02/05/22 16:16 Albuterol 2.5 Mg/3 Ml Vial.Neb. INHALATION Q4H PRN PRN Wheezing Apixaban 5 mg 02/05/22 18:00 02/07/22 05:37 Apixaban 5 Mg Tablet PO 5 mg BID MITZY Administration Aspirin 81 mg 02/06/22 08:00 02/07/22 07:49 Aspirin 81 Mg Tab.Chew PO 81 mg DAILYCM MITZY Administration Atorvastatin Calcium 40 mg 02/05/22 22:00 02/06/22 21:55 Atorvastatin Calcium 40 Mg Tablet PO 40 mg QHS MITZY Administration Bisacodyl 10 mg 02/05/22 16:16 Bisacodyl 10 Mg Suppository RC .PRN X 1 PRN Constipation Ciprofloxacin HCl 1 drp 02/07/22 10:00 02/07/22 09:04 Ciprofloxacin 0.3% 2.5ml Bottle LEFT EYE 02/17/22 10:01 1 drp Q4 MITZY Administration Doxazosin Mesylate 2 mg 02/06/22 06:00 02/07/22 05:37 Doxazosin 1 Mg Tablet PO 2 mg BID MITZY Administration Glycerin/Hypromellose/Polyethylene 2 drp 02/05/22 16:16 Glycerin/Hypromellose/Dws211 15 Ml Bottle EACH EYE Q1H PRN DRY EYES Magnesium Hydroxide 30 ml 02/05/22 16:16 Magnesium Hydroxide 30 Ml Udc PO .PRN X 1 PRN Constipation Metoprolol Tartrate 25 mg 02/05/22 18:00 02/07/22 05:37 Metoprolol Tartrate 25 Mg Tablet PO 25 mg BID MITZY Administration Modafinil 100 mg 02/06/22 06:00 02/07/22 05:36 Modafinil 200 Mg Tablet PO 100 mg 0600 MITZY Administration Nutritional Formula (Lactose Free) 120 ml 02/05/22 17:45 02/07/22 07:49 Ensure Plus High Protein 120 Ml Liquid PO 120 ml TIDCM MITZY Administration Pantoprazole Sodium 40 mg 02/05/22 22:00 02/06/22 21:55 Pantoprazole Sodium 40 Mg Tablet PO 40 mg QHS MITZY Administration Polyethylene Glycol 17 gm 02/05/22 16:16 Polyethylene Glycol 3350 17 Gm Packet PO BID PRN PRN Constipation Quetiapine Fumarate 25 mg 02/05/22 22:00 02/06/22 21:55 Quetiapine 25 Mg Tablet PO 25 mg QHS MITZY Administration Tuberculin PPD 0.1 ml 02/13/22 10:00 Tuberculin,Purif.Prot.Deriv. 50 Tu/Ml Vial ID 02/13/22 10:01 X1 ONE Problem List (Last Reviewed 02/05/22 @ 19:[address] Oliver Monroe MD) GERD (gastroesophageal reflux disease) (Acute) Benign prostatic hyperplasia (Acute) Sleep apnea (Acute) Peripheral vascular disease (Acute) Hyperlipidemia (Acute) Hypertension (Chronic) Expressive aphasia (Acute) Dysphagia (Acute) Right hemiparesis (Acute) Left middle cerebral artery stroke (Acute) Debility (Acute) Vital Signs Temp Pulse Resp BP Pulse Ox O2 Del Method 97.4 F L 88 16 154/88 H 96 Room Air 02/06/22 16:00 02/07/22 05:49 02/07/22 05:49 02/07/22 05:37 02/07/22 05:49 02/07/22 05:49 Oxygen Delivery Method Room Air Weight: 88.36 kg Body Mass Index (BMI) 26.4 Sodium 137 mmol/L (136-145) 02/06/22 06:55 Potassium 4.0 mmol/L (3.5-5.1) 02/06/22 06:55 Chloride 104 mmol/L (98-107) 02/06/22 06:55 Carbon Dioxide 26.0 mmol/L (21.0-32.0) 02/06/22 06:55 Anion Gap 7 (5-15) 02/06/22 06:55 BUN 14 mg/dL (7-18) 02/06/22 06:55 Creatinine 0.66 mg/dL (0.70-1.30) L 02/06/22 06:55 Est GFR (MDRD) Af Amer 149 mL/min (>60) 02/06/22 06:55 Est GFR (MDRD) Non-Af 123 mL/min (>60) 02/06/22 06:55 BUN/Creatinine Ratio 21.3 RATIO (10-20) H 02/06/22 06:55 Glucose 119 mg/dL (74-106) H 02/06/22 06:55 Assessment/Plan: 1. Pain: acetaminophen 1000mg PO Q6H PRN pain 1-10. Please continue to monitor for increased pain and PRN usage. Resident has not had any doses so far. 2. Bowel: Miralax 17gm PO BID PRN constipation, MOM 30mL PO daily PRN constipation and bisacodyl 10mg RC x1 PRN constipation. Please continue to monitor for constipation and PRN usage. Resident has not had any PRN doses. Last documented bowel movement 02/03. 3. Atrial fibrillation: metoprolol tartrate 25mg PO BID and apixaban 5mg PO BID. Please continue to monitor for S/S of bleeding, hemoglobin (last 13.6g/dL), BP (last 154/88) and HR (last 88). 4. Left MCA stroke: aspirin 81mg PO dailycm. Please continue to monitor for S/S of bleeding and hemoglobin. 5. Hyperlipidemia: atorvastatin 40mg PO QHS. Please consider ordering a lipid panel now and then annually as clinically appropriate. Resident does not have one in the chart. Thanks. Please continue to monitor LFTs (last 01/14/22). 6. BPH: doxazosin 2mg PO BID. Please continue to monitor BP (last 154/88) and S/S of BPH. 7. Shortness of breath: albuterol nebulized solution 2.5mg inhalation Q4H PRN wheezing. Resident has not had any doses. Please continue to monitor for SOB, wheezing and PRN usage. 8. GERD: pantoprazole 40mg PO QHS. Please continue to monitor for S/S of GERD and diarrhea. 9. Dry eyes: artificial tears 2gtt OU Q1H PRN dry eyes. Resident has not had any doses so far. Please continue to monitor for dry eyes and PRN usage. 10. Conjunctivitis (eye red and itchy per nursing note): ciprofloxacin 0.3% 1gtt left eye Q4 thru 02/17/22. Please continue to monitor for improvement in infection, redness and itching. Assessment/Plan for indications treated with psychotropic medications: 1. Insomnia: quetiapine 25mg PO QHS. Please see physician note regarding GDR. Please continue to monitor for excessive drowsiness (resident on Provigil), falls/fractures (BEERs medication), delirium/dementia (BEERs medication, black box warning) and suicidal ideation (black box warning). 2. Somnolence: modafinil 100mg PO daily. Please continue to monitor for insomnia (resident taking quetiapine), hypertonia and dyskinesias. GDR not appropriate at this time. Medical chart and medication regimen reviewed. The following medication irregularities or issues were identified: *1. Atorvastatin 40mg PO QHS. Please consider ordering a lipid panel now and then annually as clinically appropriate. Resident does not have one in the chart. Thanks. Date of Note:: 02/07/22
[2022-02-07 16:00] VITALS: BP 137/64; PULSE 87; RESP 20; TEMP 36.2; O2SAT 91
[2022-02-07 17:58] VITALS: BP 137/64; PULSE 87
[2022-02-07] MEDS: Atorvastatin Calcium 40 MG Tablet PO (20:01)
[2022-02-07] MEDS: Pantoprazole Sodium 40 MG Tablet PO (20:02)
[2022-02-07] MEDS: QUEtiapine 25 MG Tablet PO (20:02)
[2022-02-08] MEDS: Doxazosin 1 MG Tablet 2 MG PO ×2 (05:19→18:06)
[2022-02-08 05:20] VITALS: BP 136/63; PULSE 91
[2022-02-08] MEDS: Ciprofloxacin 0.3% 2.5ml Bottle 1 DRP LEFT EYE ×4 (05:20→21:14)
[2022-02-08] MEDS: APIXABAN 5 MG TABLET PO ×2 (05:20→18:06)
[2022-02-08] MEDS: Metoprolol Tartrate 25 MG Tablet PO ×2 (05:20→18:05)
[2022-02-08] MEDS: Modafinil 200 MG Tablet 100 MG PO (05:21)
[2022-02-08] MEDS: Ensure Plus High Protein 120 ML LIQUID PO ×3 (07:34→18:10)
[2022-02-08] MEDS: Aspirin 81 MG TAB.CHEW PO (07:35)
[2022-02-08 09:20] VITALS: PULSE 69; RESP 18; O2SAT 95
[2022-02-08] MEDS: Menthol/Lanolin/Calamine/Znox 113 GM Tube 1 APPLIC TOPICAL ×2 (11:00→21:15)
--- NOTE | 2022-02-08 11:13 | NURSING ---
CALLED [employer]. REPORTED TO THEM THAT THE HEART MONITOR HAS NOT WORKED RIGHT FROM DAY 1 AND TRIED EVERYTHING POSSIBLE TO GET IT WORKING CONTINUOUSLY AND NOW WE WERE OUT OF STRIPS. COMPANY ASKED DID YOU DO THIS AND THAT,THIS NURSE STATED WE TRIED EVERY THING! COMPANY STATED THEY WILL SEND OUT A NEW HEART MONITOR TO PT HOUSE BY [employer]. THIS NURSE WILL NOTIFY PT THAT A NEW MONITOR WILL BE COMING AND TO SEND THE OLD ONE BACK. RN AWARE
--- NOTE | 2022-02-08 11:29 | NURSING ---
CALLED PT AND TOLD HER THAT A NEW HEART MONITOR WILL BE DELIVERED TO HER HOUSE IN THE NEXT FEW DAYS PER COMPANY AND TO BRING IT IN AND SHE CAN TAKE THE OLD ONE AND SEND IT BACK. STATED SHE UNDER STOOD AND THANKED THIS NURSE.
--- NOTE | 2022-02-08 13:19 | NURSING ---
HEARD ALARM,PT WALKING IN ROOM. ASKED PT WHAT HE NEEDED PT STATED HE WANTED HIS AND WANTED OUT OF HERE NOW. PT VERY AGITATED. THIS NURSE CALLED AND EXPLAINED WHAT WAS HAPPENING. STATED SHE WOULD BE IN SOON. THEN PT ASKED FOR FAMILY CONSUMER SCIENCE FCS TEACHER. THIS NURSE NOTIFIED POLLO. TOLD PT EVERYONE WILL BE IN TO SEE HIM. PT STILL AGITATED. SEEN RAY THE [employer] AND ASKED IF HE WOULD SIT AND TALK TO PT. INOCENCIO STATED HE WOULD. RN AWARE
[2022-02-08 13:56] VITALS: BP 132/77; PULSE 104; RESP 16; TEMP 36.2; O2SAT 93
--- NOTE | 2022-02-08 13:57 | NURSING ---
PT STILL VERY AGITATED WHEN CAME IN. PT REFUSES TO STAY IN ROOM AND SIT. RN WALKING ON FLOOR WITH PT TILL RAS ABAD COMES TO TALK WITH PT.
--- NOTE | 2022-02-08 14:39 | NURSING ---
CALLED TO MAKE APPOINTMENT WITH FOR PT FOLLOW UP. GOT ANSWER MACHINE, LEFT MESSAGE FOR OFFICE TO CALL BACK. PT STATED SHE WOULD ADDRESS APPOINTMENTS WITH [facility]. PT WILL D/C ON 02/09/22 EARLY.
--- NOTE | 2022-02-08 15:09 | CHAPLAIN ---
Type of Pastoral Visit ___ Initial Visit _x__ Follow-up Visit ___ On-call Visit ___ General Patient Visit ___ Spiritual Assessment ___ Family Conference ___ Bereavement ___ Rapid Response ___ Code Blue ___ Other (describe below) Pastoral Care Referral From ___ Patient ___ Family _x__ Nurse ___ Physician ___ Printing Screen Assembler ___ Production Inspector ___ Other (describe below) Sacrament/Intervention _x__ Active listening ___ Anointing ___ Mu-Ism ___ Bereavement ___ Communion ___ Gauri exploration ___ ___ Life review ___ Prayer ___ Reconciliation ___ Sacrament of Sick _x__ Supportive presence ___ Wedding ___ Other (describe below) Pastoral Comments this rental agent was headed to patient room for a follow up visit, pt had been seen before in rehab unit; MANAGEMENT EXPERT asked this rental agent for a visit at this time due to pt being agitated and needing someone there while waiting on spouse to arrive; pt was sitting on the side of the bed; sat with pt in room, and offered support and listening; pt talks in an agitated tone but his words are mostly unintelligible; offered calm presence with nodding and repeating of the words that are understood; affirmed pt that waiting is difficult and understood his desire for home; continued to sit with patient and repeated that oftentimes it is difficult to understand what he is saying but that we are trying; spouse did come into room; pt is agitated with her; spouse makes phone call to their son but there is no answer; sat in room while pt tries to communicate to spouse; at first the spouse stated that it might be best for this rental agent to remain in room with her but then later she requested that this rental agent leave the room; left the room then
--- NOTE | 2022-02-08 15:56 | CASEMGMT ---
Social Work Notified by nursing that pt is getting very agitated, unable to be redirected, frustrated and wanting to dischagre. Nursing called and presented but also unsuccessful with pt redirection. IDT held UR meeting and pt is progressing well, SBA for all ADLs, soft, bite sized diet. The deficits remain impulsivity, safety awareness and aphasia. However, if is comfortable taking pt home, IDT agreeable. SW presented to room with nurse. present. Pt is agitated. SW provided supportive listening, validated frustration of not being home and difficulty communicating. Reviewed levels of care with and agreeable to take pt home. knows pt will need 24/7 supervision for safety, but physically, no assistance needed. pt still agitated and wanting to leave now. After some conversation, redirection successful and pt agreed to walk the unit with this worker. This worker engaged in conversation while walking with pt, pt calming down, agreed to get beverage and return to room with . Pt understanding he will be discharged 02/09 at 1000 and son to transport. agreeable to judo ST. Referral made and appt made. No DME needs. Plan: DC home with 02/09, judo PT Dione Mcneill, PRODUCT SAFETY COMPLIANCE LEADER CURB BUILDER
[2022-02-08 18:05] VITALS: BP 132/77; PULSE 104
--- NOTE | 2022-02-08 19:16 | DS.PCM_ITS ---
Providers Date of Admission: 02/05/22 Primary Care Physician: Dr. Cindy Kent DO Reason For Visit: STROKE Diagnosis Discharge Diagnosis (1) Debility: Status: Acute Code(s): R53.81 - Other malaise (2) Left middle cerebral artery stroke: Status: Acute Code(s): I63.512 - Cerebral infarction due to unspecified occlusion or stenosis of left middle cerebral artery (3) Right hemiparesis: Status: Acute Code(s): G81.91 - Hemiplegia, unspecified affecting right dominant side (4) Dysphagia: Status: Acute Code(s): R13.10 - Dysphagia, unspecified (5) Expressive aphasia: Status: Acute Code(s): R47.01 - Aphasia (6) Hypertension: Status: Chronic Code(s): I10 - Essential (primary) hypertension (7) Hyperlipidemia: Status: Acute Code(s): E78.5 - Hyperlipidemia, unspecified (8) Peripheral vascular disease: Status: Acute Code(s): I73.9 - Peripheral vascular disease, unspecified (9) Sleep apnea: Status: Acute Code(s): G47.30 - Sleep apnea, unspecified (10) Benign prostatic hyperplasia: Status: Acute Code(s): N40.0 - Benign prostatic hyperplasia without lower urinary tract symptoms (11) GERD (gastroesophageal reflux disease): Status: Acute Code(s): K21.9 - Gastro-esophageal reflux disease without esophagitis Plan 86 year old male with below past medical history hospitalized for left MCA stroke, underwent TPA, and thrombectomy, admitted to [facility] 12/26/2021, then transferred to TCU with debility, here for rehabilitation, strengthening, prior to discharge home with . * Debility - PT/OT. * Dysphagia - ST. * Pain - Tylenol 1000mg q6h prn pain (1-10). * Bowel - Miralax 17gm bid prn, MOM 30ml daily prn, Dulcolax 10mg pr daily prn. * Adult immunization - Administer pneumonia vaccine, covid19 vaccine, flu vaccine as appropriate. * DVT prophylaxis - Not necessary, already anticoagulated. * Shortness of breath - Albuterol 2.5mg neb q4h prn. * Presumed atrial fibrillation - Metoprolol 25mg bid, Eliquis 5mg bid. * Left MCA stroke - Aspirin 81mg daily. * Hyperlipidemia - Atorvastatin 40mg qhs. * BPH - Doxazosin 2mg bid. * Nutrition - Ensure Plus high protein 120ml po tidcm. * GERD - Lansoprazole 30mg daily. * Somnolence - Provigil 100mg daily. * Dry eyes - Artificial tears 2gtt q1h prn. * Insomnia - Seroquel 25mg qhs, stable chronic use, GDR not recommended. Medications at Discharge Home Medications aspirin 81 mg chewable tablet 81 mg PO DAILY heart health 01/13/22 apixaban 5 mg tablet (Eliquis) 5 mg PO BID 30 days #60 tabs 02/08/22 atorvastatin 40 mg tablet 40 mg PO QHS 30 days #30 tabs 02/08/22 doxazosin 1 mg tablet 2 mg PO BID 30 days #120 tabs 02/08/22 metoprolol tartrate 25 mg tablet 25 mg PO BID 30 days #60 tabs 02/08/22 pantoprazole 40 mg tablet,delayed release 40 mg PO QHS 30 days #30 tabs 02/08/22 quetiapine 25 mg tablet 25 mg PO QHS 30 days #30 tabs 02/08/22 Hospital Course Operations None Procedures None Summary of Care Provided Minutes Spent on Discharge: 35 Hospital Course: 86 year old male with below past medical history hospitalized for left MCA stroke, underwent TPA, and thrombectomy, admitted to [facility] 12/26/2021, then transferred to TCU with debility, here for rehabilitation, strengthening, prior to discharge home with . Discharge home with 02/09/2022, [facility]. Physical Exam Const alert General Appearance: cooperative HEENT normocephalic Eyes PERRL and EOMs intact bilaterally Neck supple, no JVD and no carotid bruits Resp normal respiratory effort, normal air movement and clear to auscultation bilaterally Cardio regular rate and regular rhythm GI normal to inspection, nondistended, normoactive bowel sounds, non-tender and non-distended Extremity normal capillary refill General Extremity: Negative for edema Skin no rashes or lesions noted General Skin Exam: no breakdown Psych affect normal Appearance: appropriate Weight / BMI Weight Weight: 88.677 kg Body Mass Index (BMI) 26.4 ABG / Lab / Microbiology Data Result Diagrams: 02/06/22 06:55 02/06/22 06:55 Microbiology: Microbiology 02/07/22 Unknown Nasal Secretion SARS-CoV-2 Antigen (Rapid) - Final D/C Instructions Discharge Diet: Soft diet Discharge Activity: Return to Normal Activity, May Shower and Use Walker Weight Bearing Status: Weight bearing as tolerated Call your doctor if you observe: Fever of 101 or Higher, Inability to urinate, Inability to have a bowel movement, Shortness of breath, Dizziness, Fainting spells, Swelling in the ankles, Chest pain and Uncontrolled pain Additional Instructions: Discharge home with 02/09/2022, [facility]. Please Follow Up With: Bharat Blankenship MD When: As scheduled. Meaningful Use Info Meaningful Use Diagnoses (Choose all that apply): Ischemic CVA AMI/Post PCI/Angioplasty Aspirin given w/in 24hrs of arrival?: Yes ASA at discharge?: Yes Statins at discharge?: Yes CVA Therapy Assessed for PT,OT and/or ST?: Yes Ischemic Stroke Antithrombotic order at d/c?: Yes Dx of Atrial fib/flutter?: Yes Anticoagulant at discharge?: Yes Statins at discharge?: Yes Primary Dx Acute Ischemic CVA?: Yes IV tPA ordered during stay?: Yes Discharge Plan Admission Admit Date/Time: 02/05/22 15:20 Primary Reason for Your Visit: Debility. Attending Provider: Oliver Monroe Chi Primary Care Provider: Cindy Kent Instructions Additional Instructions / Restrictions: Discharge home with 02/09/2022, [facility]. Discharge Orders/Prescriptions Prescriptions: New Eliquis 5 mg Tablet 5 mg PO BID 30 Days Qty: 60 0RF quetiapine 25 mg Tablet 25 mg PO QHS 30 Days Qty: 30 0RF atorvastatin 40 mg Tablet 40 mg PO QHS 30 Days Qty: 30 0RF doxazosin 1 mg Tablet 2 mg PO BID 30 Days Qty: 120 0RF pantoprazole 40 mg Tablet,Delayed Release (Dr/Ec) 40 mg PO QHS 30 Days Qty: 30 0RF metoprolol tartrate 25 mg Tablet 25 mg PO BID 30 Days Qty: 60 0RF Continued aspirin 81 mg Tablet,Chewable 81 mg PO DAILY Discontinued atorvastatin 40 mg Tablet 40 mg feeding tube QHS polyethylene glycol 3350 [Miralax] 17 gram Powder In Packet 17 g PO BID PRN PRN (Reason: Constipation) doxazosin [Cardura] 2 mg Tablet 2 mg feeding tube BID metoprolol tartrate 25 mg Tablet 25 mg PO BID albuterol sulfate 2.5 mg /3 mL (0.083 %) Solution For Nebulization 2.5 mg inhalation Q4H PRN PRN (Reason: WHEEZING) Qty: 1 0RF bisacodyl 10 mg Suppository 10 mg HI .PRN X 1 PRN (Reason: Constipation) Qty: 0 0RF magnesium hydroxide 400 mg/5 mL Suspension 30 ml PO .PRN X 1 PRN (Reason: Constipation) Qty: 0 0RF Artificial Tears([id number]) 1-0.2-0.2 % Drops 2 drp EACH EYE Q1H PRN (Reason: DRY EYES) Qty: 0 0RF quetiapine 25 mg tablet 25 mg PO 2100 modafinil 200 mg tablet 100 mg PO DAILY@0600 lansoprazole 15 mg capsule,delayed release(DR/EC) 30 mg NG QHS Eliquis 5 mg tablet 5 mg PO BID Ensure Plus High Protein 0.08 gram-1.5 kcal/mL liquid 120 ml PO TIDCM Referrals / Follow Up: Cindy Kent DO [Primary Care Provider] - Elton Yap MD [Med Staff - Active Staff] - (Following DC from TCU) Ernie Kellogg MD [Non-Staff -Ordering Privileges] - (After D/C from TCU ) Bharat Blankenship MD [Non-Staff] - () Disposition Disposition (needs filled in before D/C Order can be placed): Home, Self Care
[2022-02-08] MEDS: QUEtiapine 25 MG Tablet PO (21:14)
[2022-02-08] MEDS: Atorvastatin Calcium 40 MG Tablet PO (21:14)
[2022-02-08] MEDS: Pantoprazole Sodium 40 MG Tablet PO (21:14)
[2022-02-09] MEDS: Modafinil 200 MG Tablet 100 MG PO (05:59)
[2022-02-09] MEDS: APIXABAN 5 MG TABLET PO (06:00)
[2022-02-09 06:01] VITALS: BP 160/96; PULSE 99
[2022-02-09] MEDS: Ciprofloxacin 0.3% 2.5ml Bottle 1 DRP LEFT EYE ×2 (06:01→09:10)
[2022-02-09] MEDS: Metoprolol Tartrate 25 MG Tablet PO (06:01)
[2022-02-09] MEDS: Doxazosin 1 MG Tablet 2 MG PO (06:01)
[2022-02-09 06:07] VITALS: PULSE 99; RESP 16; O2SAT 96
--- NOTE | 2022-02-09 06:17 | NURSING ---
Peg tube flushed with 100mL of tap water. Patient tolerated well.
--- NOTE | 2022-02-09 08:49 | NURSING ---
Internet Systems Administrator Note; MDS Complete
[2022-02-09] MEDS: Ensure Plus High Protein 120 ML LIQUID PO (09:10)
[2022-02-09] MEDS: Aspirin 81 MG TAB.CHEW PO (09:10)
[2022-02-09] MEDS: Menthol/Lanolin/Calamine/Znox 113 GM Tube 1 APPLIC TOPICAL (09:11)
[2022-02-09 10:39] VITALS: BP 140/87; PULSE 85; RESP 16; TEMP 36.3; O2SAT 95
--- NOTE | 2022-02-14 13:28 | MDS.RN ---
Information for the mds was obtained from review of the clinical record, interview of resident, staff, and direct observation of resident's care.
== END 2022-02-09 10:44 | disposition home or self-care (01) | DRG 57 ==
PROVIDERS: Admitting Provider Family Medicine Geriatric Medicine; PCP Internal Medicine; Referring Provider Family Medicine Geriatric Medicine; Visit Provider Family Medicine Geriatric Medicine
DX: I69.351 Hemiplegia and hemiparesis following cerebral infarction affecting right dominant side (principal); E78.5 Hyperlipidemia, unspecified; I48.91 Unspecified atrial fibrillation; I73.9 Peripheral vascular disease, unspecified; I69.320 Aphasia following cerebral infarction; G47.30 Sleep apnea, unspecified; I10 Essential (primary) hypertension; K21.9 Gastro-esophageal reflux disease without esophagitis; N40.0 Benign prostatic hyperplasia without lower urinary tract symptoms; Z79.82 Long term (current) use of aspirin; Z79.899 Other long term (current) drug therapy; Z79.01 Long term (current) use of anticoagulants; R13.10 Dysphagia, unspecified
CPT/HCPCS: 36415; 80048; 85025; 87426; 92507; 92523; 92610; 97110; 97116; 97162; 97166; 97530; 97535; 97802

== ENCOUNTER 2022-03-20 14:57 | Emergency (ER) | payer MEDICARE, BC, SELFPAY ==
[2022-03-20 14:58] VITALS: BP 136/91; PULSE 99; RESP 15; TEMP 36; O2SAT 98; BMI 27.6
--- NOTE | 2022-03-20 15:17 | EDS_ITS ---
HPI HPI - GI History of Present Illness Chief Complaint: Abd Pain Detail of Chief Complaint: Wants feeding tube removed Informant: patient and family Narrative Narrative: 86-year-old male who had a stroke on December 27. Was taken to [facility]. He also has a history of hypertension and A. fib. He is on Eliquis. Due to swallowing difficulty had a gastric tube placed. It was post to come out around the and he had trouble getting anyone locally taken out. He said he has been eating normally. He was in our transitional care unit before he was discharged home and is now been home and doing well. Family states that the feeding tube is irritating him and he just wanted pulled out. Prior similar symptoms: No Recent Illness/Hospitalization: Yes [facility]SH [facility] Medical History Atrial bigeminy CVA (cerebral vascular accident) Essential hypertension Glucose intolerance (impaired glucose tolerance) Hyperlipidemia Premature atrial contractions PVD (peripheral vascular disease) Sleep apnea Home Medications aspirin 81 mg chewable tablet 81 mg PO DAILY heart health 01/13/22 [History Last Taken Unknown] apixaban 5 mg tablet (Eliquis) 5 mg PO BID 30 days #60 tabs 02/08/22 [Rx Last Taken Unknown] atorvastatin 40 mg tablet 40 mg PO QHS 30 days #30 tabs 02/08/22 [Rx Last Taken Unknown] doxazosin 1 mg tablet 2 mg PO BID 30 days #120 tabs 02/08/22 [Rx Last Taken Unknown] metoprolol tartrate 25 mg tablet 25 mg PO BID 30 days #60 tabs 02/08/22 [Rx Last Taken Unknown] pantoprazole 40 mg tablet,delayed release 40 mg PO QHS 30 days #30 tabs 02/08/22 [Rx Last Taken Unknown] quetiapine 25 mg tablet 25 mg PO QHS 30 days #30 tabs 02/08/22 [Rx Last Taken Unknown] Allergy/AdvReac Type Severity Reaction Status Date / Time lisinopril AdvReac Severe cough Verified 03/20/22 15:00 Family History Father Emphysema of lung Mother Dena Gehrigs disease Surgical History History of cholecystectomy History of left knee replacement Social History household members: spouse Smoking Status: Never smoker alcohol intake: current details: occasional substance use type: does not use caffeine: Yes Type: coffee Number of servings: 1 ROS ROS ED ROS Narrative No recent illness. Review of Systems ROS Unobtainable: Denies due to encephalopathy Constitutional Constitutional ED: Denies chills or fever(s) ENT ENT ED: Denies ear pain Cardiovascular Cardiovascular: Denies chest pain Respiratory/Chest Respiratory/Chest: Denies cough or dyspnea Gastrointestinal Gastrointestinal: Denies abdominal pain Genitourinary Genitourinary ED: Denies dysuria Musculoskeletal Musculoskeletal: Denies arthralgias Integumentary Denies abscess Neurologic Neurologic: Denies headache(s) Psychiatric Psychiatric: Denies anxiety Endocrine Endocrinology: Denies polydipsia Hematologic/Lymphatic Hematologic/Lymphatic: Denies easy bleeding Allergic/Immunologic Allergic/Immunologic ED: Denies mouth swelling or tongue swelling EXAM Physical Exam Narrative Exam Narrative: 86-year-old male no acute distress. Vital signs stable afebrile. H EENT exam unremarkable. Lungs clear. Heart regular rhythm rate about 100 no murmur. Abdomen soft nontender. Nondistended. Feeding tube in the left upper quadrant. Moving all 4 extremities. Neurologically he has dysphagia. That is been chronic from the stroke. He is moving all 4 extremities. He is awake and alert. Following commands. Const Vital Signs: 03/20/22 14:58 Temperature 96.8 F L Temperature Source Temporal Pulse Rate 99 Respiratory Rate 15 Blood Pressure 136/91 H Blood Pressure Mean 106 Pulse Ox 98 Oxygen Delivery Method Room Air Positive well nourished and well developed; Negative for obese, cachectic, contractures or unkempt General Appearance ED: well developed and NAD; Negative for unkempt, cachectic, contractures or pallor Nutritional Appearance: Negative for cachectic or obese HEENT Reports moist mucous membranes; Denies dry mucous membranes normocephalic and atraumatic; Negative for trauma or tenderness Mouth ED: No dry mucous membranes Mouth: No dry mucous membranes Eyes EOMs intact bilaterally General Eye ED: Negative for pale conjunctiva or scleral icterus Neck no lymphadenopathy, supple and no JVD General: Negative for tenderness Carotids: Negative for other Lymph Lymphatic: Negative for other Resp normal respiratory effort and clear to auscultation bilaterally Effort and Inspection: Negative for respiratory distress Auscultation: Negative for rales or rhonchi Cardio regular rate, S1 normal heart sound, S2 normal heart sound and no murmurs; Negative for regular rhythm Cardio Narrative: A. fib rate of about 100. GI non-tender, non-distended and no masses GI Narrative: Feeding tube in place. Inspection: Negative for abdominal distention Auscultation: normoactive bowel sounds Palpation: soft; Negative for tender or guarding Back/Spine no CVA tenderness General Back: Negative for CVA tenderness Cervical Spine: Negative for cervical spine tenderness Thoracic Spine / Upper Back: Negative for thoracic spinal tenderness Lumbar Spine / Lower Back: Negative for lumbar spinal tenderness Coccyx: Negative for other Extremity full ROM General Extremety ED: Negative for edema or tenderness General Extremity: Negative for edema Neuro moves all extremities Neuro Narrative: Dysphagia. Sensorium / Orientation: alert, oriented to person, oriented to place and or iented to time Motor Exam: strength 5/5 throughout Psych mental status grossly normal Appearance: Negative for unkempt Attitude: No agitated Mood & Affect: Negative for depressed, anxious or tearful Skin General Skin Exam: Negative for jaundice or pallor Lesions: no lesions Rashes: no rashes Trauma: Negative for abrasion Nails: Negative for discolored MDM MDM MDM Narrative Medical decision making narrative: 86-year-old male stroke in December. Has been through rehab. Now is eating normally. Just wants the feeding tube removed. The knee they have been unable to get back down [employer] and get coordinated to have it removed. It was supposed to come out on March 08. I was able to remove the feeding tube without any difficulty. Clean the site. He will be discharged. Discharge Plan Triage Chief Complaint: Abd Pain ED Provider: Kike Rivera Dx/Rx/DC Orders Clinical Impression: PEG tube malfunction, History of stroke Prescriptions: No Action aspirin 81 mg Tablet,Chewable 81 mg PO DAILY Eliquis 5 mg Tablet 5 mg PO BID 30 Days Qty: 60 0RF quetiapine 25 mg Tablet 25 mg PO QHS 30 Days Qty: 30 0RF atorvastatin 40 mg Tablet 40 mg PO QHS 30 Days Qty: 30 0RF doxazosin 1 mg Tablet 2 mg PO BID 30 Days Qty: 120 0RF pantoprazole 40 mg Tablet,Delayed Release (Dr/Ec) 40 mg PO QHS 30 Days Qty: 30 0RF metoprolol tartrate 25 mg Tablet 25 mg PO BID 30 Days Qty: 60 0RF Primary Care Provider: Nia Hale Referrals: Nia Hale, [facility] [Primary Care Provider] - As Needed Activity Restrictions/Additional Instructions: Keep the area clean. Keep it covered. Follow-up with your primary care provider as needed. Disposition Disposition: Home, Self Care
== END 2022-03-20 15:27 | disposition home or self-care (01) ==
LOC: ED 15:22
PROVIDERS: Emergency Provider Emergency Medicine; PCP Nurse Practitioner Family; Visit Provider Emergency Medicine
DX: K94.23 Gastrostomy malfunction (principal); Z86.73 Personal history of transient ischemic attack (TIA), and cerebral infarction without residual deficits; G47.30 Sleep apnea, unspecified; Z79.01 Long term (current) use of anticoagulants
CPT/HCPCS: 99283

== ENCOUNTER 2022-08-11 10:00 | Outpatient (RCR) | payer MEDICARE, BC, SELFPAY ==
--- NOTE | 2022-02-14 16:27 | HP.SP.EV_ITS ---
History - History Date of Eval: 02/11/22 Previous speech therapy: Yes Other Relevant Medical History/Diagnoses/Surgery: Danny is a 86 year old male who was seen at [facility] for a speech and language evaluation. Pt previously was treated at [facility] post cva to address expressive and receptive aphasia. Pt lives at home with his . Pt's son Rafiq is also involved in his care and was present for his speech therapy evaluation. Pt has a history of hearing loss. Smoking Status: Never smoker Hx Tobacco Use: No - Pain Is pain an issue with your current prescribed condition?: No Patient Allergies - Allergies Allergies lisinopril Adverse Reaction (Severe, Verified 12/27/21 07:29) cough Objective Cog/Ling/Com - Test Administered Lzgdkjgmi-Czrcctoxnz-Nrplyrqngijqd Assessment Administered: Yes Xmmpfkdig-Cjzzdqcaki-Jbfnyzqcflrlg Assessment: Cognitive ? Linguistic skills were evaluated using patient/family interview, skilled observation and informal evaluation through tasks completed by the patient. - Orientation Orientation: Person - Identification Body parts/objects: Severe - Answer Yes/No Questions Simple: Severe Complex: Severe - Follows Commands 1 Step: Severe - Comments Comments: A low tech AAC board with yes, no, drink, eat, toilet, pain was used during the session. Pt answered yes, no questions with board given max support during 15% of opportunities. - Repetition Words: Severe - Naming Responsive naming: Severe Vanderbilt: Severe - Conversational Tasks Conversational Tasks: Severe Comments: Pt unable to answer questions or form coherent sentences. Pt was noted to use a few real words during the evaluation re: yeah, no, little boy, right. - Reading Picture-Word Matching Picture-Word matching: Severe Comments: 20% acc - Writing Words: Moderate Phrases: Severe Comments: Pt able to write his name and his son's name. Pt unable to write his birthday or complete sentences. Pt completed a 3 word spelling match with 50% acc. - Cognitive Linguistic Supervision/Saftey Awareness of deficits: Severe Being left home alone: Severe Managing medications: Severe Managing finances: Severe Plan - Plan Plan: Will recommend Pt for weekly outpatient speech therapy intervention address severe expressive aphasia and recepetive. Pt would benefit from verbal a nd visual modeling, verbal/visual cues, repeated practice, speech intelligibility strategies, circumlocution training, and immediate feedback to improve awareness of deficit and communication. Without skilled intervention Pt is at risk for difficulty communicating basic, medical, emergent, social wants & needs, and interacting with family/friends at home, during social interactions, and at work. - Recommendations MBS: No Treatment Warranted: Yes - Progress Prognosis: Fair - Frequency Frequency: 2x /Week Duration: 4-6 Months - Goals that are Established Determination:: Goals will be added/modified as deemed necessary and appropriate. Therapy will be discontinued when results of re-evaluation indicate therapy is no longer needed or lack of progress has been documented. - Goal #1-5 Goal #1: Patient will identify common from a field of 2 by pointing to the correct answer during 70% of opportunities during 3/4 sessions. Goal #2: Patient will spell 3 letter words given a model and pictures during 70% of opportunities during 3/4 sessions. Goal #3: Patient will follow 1 step commands with during 70% of opportunities during 3/4 sessions. Goal #4: Pt will answer yes/no questions verbally, with gestures, or using augmentative communication during 70% of opportunities during 3/4 sessions. Goal #5: Pt will utilize words, gestures and/or augmentative communication to communicate his basic wants and needs 10 times a session during 3/4 sessions. - Goal #6-10 Goal #6: Pt and his support system will modify the home environment to be conductive for communication and use strategies to support his communication within 5 weeks of the initial evaluation. Education - Patient has Indicated that the Following Identified Educational Needs: Language Barrier - Patient Instruction Patient Education: Diagnosis, Treatment Plan, Goals Person Taught: Patient, Family Teaching Method: Discussion, Demonstration Response to teaching: Return demonstration, Verbalize understanding
--- NOTE | 2022-03-29 11:12 | HP.SPREEV_ITS ---
History - History Date of Eval: 03/05/22 Previous speech therapy: Yes Other Relevant Medical History/Diagnoses/Surgery: Danny is a 86 year old male who was seen at [facility] for a speech and language evaluation. 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 Pt lives at home with his . Pt's son Rafiq is also involved in his care and was present for his speech therapy evaluation. Pt has a history of hearing loss. Smoking Status: Never smoker Hx Tobacco Use: No - Pain Is pain an issue with your current prescribed condition?: No Patient Allergies - Allergies Allergies lisinopril Adverse Reaction (Severe, Verified 03/20/22 15:00) cough Previous/Current Goals - Goals 1-5 Previous Goal #1: Patient will identify common from a field of 2 by pointing to the correct answer during 70% of opportunities during 3/4 sessions. Goal 1 Status: Goal Partially Met: Pt identified words from a field of 2 with 68% acc with an orally presented word. Pt identified words from a field of 3-6 pictures with 92% acc with a written word. Pt surpassed his goal when the words were presented in a written form, and has made progress towards orally presented words. Previous Goal #2: Patient will spell 3 letter words given a model and pictures during 70% of opportunities during 3/4 sessions. Goal 2 Status: Goal Met: Pt completed 3 letter spelling on ipad (word given) with 96% acc I. Pt has progressed towards working on 3 letter words without a model or cuing and 4 letter words. Previous Goal #3: Patient will follow 1 step commands with during 70% of opportunities during 3/4 sessions. Goal 3 Status: Goal Partially Met (met 1 session): Pt I followed 1 step commands with 70% acc. Previous Goal #4: Pt will answer yes/no questions verbally, with gestures, or using augmentative communication during 70% of opportunities during 3/4 sessions. Goal 4 Status: Goal Partially Met (met 1 session): Pt answered yes/no questions with 70% acc using low tech aac Previous Goal #5: Pt will utilize words, gestures and/or augmentative communication to communicate his basic wants and needs 10 times a session during 3/4 sessions. Goal 5 Status: Goal Progressing: Pt answered questions about how to use the board to address needs with 75% acc. Pt used good, bad, ok & a few word to talk about if he lives various sports and sport teams. - Goals 6-10 Previous Goal #6: Pt and his support system will modify the home environment to be conductive for communication and use strategies to support his communication within 5 weeks of the initial evaluation. Objective Cog/Ling/Com - Test Administered Fiwfgirjl-Gqnigvaumn-Xdoqkghlubxcy Assessment Administered: Yes Kxjjtupas-Ythldfjcmr-Hgdmvanafifcn Assessment: Cognitive ? Linguistic skills were evaluated using patient/family interview, skilled observation and informal evaluation through tasks completed by the patient. - Orientation Orientation: Person - Identification Body parts/objects: Severe - Answer Yes/No Questions Simple: Severe Complex: Severe - Follows Commands 1 Step: Severe - Comments Comments: A low tech AAC board with yes, no, drink, eat, toilet, pain was used during the session. Pt answered yes, no questions with board given max support during 15% of opportunities. - Repetition Words: Severe - Naming Responsive naming: Severe [place]: Severe - Conversational Tasks Conversational Tasks: Severe Comments: Pt unable to answer questions or form coherent sentences. Pt was noted to use a few real words during the evaluation re: yeah, no, little boy, right. - Reading Picture-Word Matching Picture-Word matching: Severe Comments: 20% acc - Writing Words: Moderate Phrases: Severe Comments: Pt able to write his name and his son's name. Pt unable to write his birthday or complete sentences. Pt completed a 3 word spelling match with 50% acc. - Cognitive Linguistic Supervision/Saftey Awareness of deficits: Severe Being left home alone: Severe Managing medications: Severe Managing finances: Severe Plan - Plan Plan: Will recommend Pt for weekly outpatient speech therapy intervention address severe expressive aphasia and recepetive. Pt would benefit from verbal and visual modeling, verbal/visual cues, repeated practice, speech intelligibility strategies, circumlocution training, and immediate feedback to improve awareness of deficit and communication. Without skilled intervention Pt is at risk for difficulty communicating basic, medical, emergent, social wants & needs, and interacting with family/friends at home, during social interactions, and at work. - Recommendations MBS: No Treatment Warranted: Yes - Progress Prognosis: Fair - Frequency Frequency: 2x /Week Duration: 4-6 Months - Goals that are Established Determination:: Goals will be added/modified as deemed necessary and appropriate. Therapy will be discontinued when results of re-evaluation indicate therapy is no longer needed or lack of progress has been documented. - Goal #1-5 Goal #1: Patient will identify common from a field of 2 by pointing to the correct answer during 70% of opportunities during 3/4 sessions. Goal #2: Patient will spell 3 letter words given a model and pictures during 70% of opportunities during 3/4 sessions. Goal #3: Patient will follow 1 step commands with during 70% of opportunities during 3/4 sessions. Goal #4: Pt will answer yes/no questions verbally, with gestures, or using augmentative communication during 70% of opportunities during 3/4 sessions. Goal #5: Pt will utilize words, gestures and/or augmentative communication to communicate his basic wants and needs 10 times a session during 3/4 sessions. - Goal #6-10 Goal #6: Pt and his support system will modify the home environment to be conductive for communication and use strategies to support his communication within 5 weeks of the initial evaluation. Education - Patient has Indicated that the Following Identified Educational Needs: Language Barrier - Patient Instruction Patient Education: Diagnosis, Treatment Plan, Goals Person Taught: Patient, Family Teaching Method: Discussion, Demonstration Response to teaching: Return demonstration, Verbalize understanding
--- NOTE | 2022-04-26 11:40 | HP.SPREEV_ITS ---
History - History Date of Eval: 02/11/22 Previous speech therapy: Yes Other Relevant Medical History/Diagnoses/Surgery: Danny is a 86 year old male who was seen at [facility] for a speech and language evaluation. 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 Pt lives at home with his . Pt's son Rafiq is also involved in his care and was present for his speech therapy evaluation. Pt has a history of hearing loss. Smoking Status: Never smoker Hx Tobacco Use: No - Pain Is pain an issue with your current prescribed condition?: No Patient Allergies - Allergies Allergies lisinopril Adverse Reaction (Severe, Verified 03/20/22 15:00) cough Previous/Current Goals - Goals 1-5 Previous Goal #1: Patient will identify common from a field of 2 by pointing to the correct answer during 70% of opportunities during 3/4 sessions. Goal 1 Status: Goal Met: Pt matched verbally presented word to picture with a choice of 2 with 92% acc. Pt choose a picture from 3 choices with 80% acc. Previous Goal #2: Patient will spell 3-4 letter words given a pictures during 70% of opportunities during 3/4 sessions. Goal 2 Status: Goal Met: Writing three letter words given picture only: 90% acc. Writing four letter words given picture only: 90% acc Previous Goal #3: Patient will follow 1 step commands with during 70% of opportunities during 3/4 sessions. Goal 3 Status: Goal Progressing: Pt followed 1 step directions with 40% acc I. Previous Goal #4: Pt will answer yes/no questions verbally, with gestures, or using augmentative communication during 70% of opportunities during 3/4 sessions. Goal 4 Status: Goal Partially Met (1 session): Pt answered yes/no questions with 90% acc. Previous Goal #5: Pt will utilize words, gestures and/or augmentative communication to communicate his basic wants and needs 10 times a session during 3/4 sessions. Goal 5 Status: Goal Progressing: Pt & ST had a conversation using the white board/paper & max cues. ST unable to figure out what pt was trying to state x1 despite max cues to clarify. Pt attempts to verbally tell ST stories and occasionally uses 1-2 intelligible words. Pt will utilize hand gestures and writing to help the ST understand. Pt is making progress with recognizing when the ST doesn't understand and attempting to use these strategies even if the communication breakdown is not solved. - Goals 6-10 Previous Goal #6: Pt and his support system will modify the home environment to be conductive for communication and use strategies to support his communication within 5 weeks of the initial evaluation. Goal 6 Status: Goal Progressing: Pt brought in his ipad so the ST could help him with the settings for home practice. Pt is progressing in speech, but often shows up unaccompanied to his sessions so the ST is unable to fully understand how much things have changed at home due to his language deficits. Previous Goal #7: Pt will verbally complete common phrases to increase expressive language with 80% acc during 3/4 sessions Goal 7 Status: Goal Progressing: Pt completed common phrases verbally with 10% acc. Objective Cog/Ling/Com - Test Administered Yavkaeeyu-Sgmfijlhja-Enokanuhzkkzi Assessment Administered: Yes Vhkftijdg-Infecwazpj-Csadbesazoliz Assessment: Cognitive ? Linguistic skills were evaluated using patient/family interview, skilled observation and informal evaluation through tasks completed by the patient. - Orientation Orientation: Person - Identification Body parts/objects: Severe - Answer Yes/No Questions Simple: Severe Complex: Severe - Follows Commands 1 Step: Severe - Comments Comments: A low tech AAC board with yes, no, drink, eat, toilet, pain was used during the session. Pt answered yes, no questions with board given max support during 15% of opportunities. - Repetition Words: Severe - Naming Responsive naming: Severe [place]: Severe - Conversational Tasks Conversational Tasks: Severe Comments: Pt unable to answer questions or form coherent sentences. Pt was noted to use a few real words during the evaluation re: yeah, no, little boy, right. - Reading Picture-Word Matching Picture-Word matching: Severe Comments: 20% acc - Writing Words: Moderate Phrases: Severe Comments: Pt able to write his name and his son's name. Pt unable to write his birthday or complete sentences. Pt completed a 3 word spelling match with 50% acc. - Cognitive Linguistic Supervision/Saftey Awareness of deficits: Severe Being left home alone: Severe Managing medications: Severe Managing finances: Severe Plan - Plan Plan: Will recommend Pt for weekly outpatient speech therapy intervention address severe expressive aphasia and receptive. Pt would benefit from verbal and visual modeling, verbal/visual cues, repeated practice, speech intelligibility strategies, circumlocution training, and immediate feedback to improve awareness of deficit and communication. Without skilled intervention Pt is at risk for difficulty communicating basic, medical, emergent, social wants & needs, and interacting with family/friends at home, during social interactions, and at work. - Recommendations MBS: No Treatment Warranted: Yes Treatment Warranted: Receptive/ Expressive Language - Progress Prognosis: Good - Frequency Frequency: 2-3x /Week Duration: 6 Months - Goals that are Established Determination:: Goals will be added/modified as deemed necessary and appropriate. Therapy will be discontinued when results of re-evaluation indicate therapy is no longer needed or lack of progress has been documented. - Goal #1-5 Goal #1: Patient will identify common from a field of 3 by pointing to the correct answer during 80% of opportunities during 3/4 sessions. Goal #2: Patient will spell 5+ letter words given a pictures during 80% of opportunities during 3/4 sessions. Goal #3: Patient will follow 1 step commands with during 70% of opportunities during 3/4 sessions. Goal #4: Pt will I answer yes/no questions verbally, with gestures, or using augmentative communication during 70% of opportunities during 3/4 sessions. Goal #5: Pt will utilize words, gestures and/or augmentative communication to communicate his basic wants and needs 10 times a session during 3/4 sessions. - Goal #6-10 Goal #6: Pt will verbally complete common phrases to increase expressive language with 80% acc during 3/4 sessions Goal #7: Pt will complete written phrases/sentences to increase reading comprehension language with 80% acc during 3/4 sessions Education - Patient has Indicated that the Following Identified Educational Needs: Language Barrier - Patient Instruction Patient Education: Diagnosis, Treatment Plan, Goals Person Taught: Patient, Family Teaching Method: Discussion, Demonstration Response to teaching: Return demonstration, Verbalize understanding
--- NOTE | 2022-06-07 15:39 | HP.SPREEV_ITS ---
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 Pt lives at home with his . Pt's son Rafiq is also involved in his care and was present for his speech therapy evaluation. Pt has a history of hearing loss. Smoking Status: Never smoker - Diagnosis Diagnosis: CVA - Pain Is pain an issue with your current prescribed condition?: No - Personal Preferred language: [place] History - History Date of Eval: 02/11/22 Previous speech therapy: Yes Other Relevant Medical History/Diagnoses/Surgery: Danny is a 86 year old male who was seen at [facility] for a speech and language evaluation. 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 Pt lives at home with his . Pt's son Rafiq is also involved in his care and was present for his speech therapy evaluation. Pt has a history of hearing loss. Smoking Status: Never smoker Hx Tobacco Use: No - Pain Is pain an issue with your current prescribed condition?: No Patient Allergies - Allergies Allergies lisinopril Adverse Reaction (Severe, Verified 04/28/22 13:50) cough Previous/Current Goals - Goals 1-5 Previous Goal #1: Patient will identify common from a field of 3 by pointing to the correct answer during 80% of opportunities during 3/4 sessions. Goal 1 Status: Goal Met: Pt choose between 3 pictures of nouns with an auditorily presented word on hard with 80% acc. Previous Goal #2: Patient will spell 5+ letter words given a pictures during 80% of opportunities during 3/4 sessions. Goal 2 Status: Goal Partially Met (1 session): Pt wrote 5 letter words with 80% acc with no distractor letters (Easy level). Previous Goal #3: Patient will follow 1 step commands with during 70% of opportunities during 3/4 sessions. Goal 3 Status: Goal Progressing: Pt followed 1 step directions with 30% acc I, increased to 90% with cues and a model of the direction. Pt has difficulty with directions other than pointing to a body part. Previous Goal #4: Pt will I answer yes/no questions verbally, with gestures, or using augmentative communication during 70% of opportunities during 3/4 sessions. Goal 4 Status: Goal Partially Met (1 session): Pt answered yes/no verbal questions I (no cues) with 70% acc Pt benefits from picture cues or written down cues to help him with context of the question. Pt has answered yes/no questions with 80% acc when given cues. Previous Goal #5: Pt will utilize words, gestures and/or augmentative communication to communicate his basic wants and needs 10 times a session during 3/4 sessions. Goal 5 Status: Goal Progressing: Pt utilized compensatory strategies of writing and gestures in addition to verb speech to have a conversation with the ST given min cues. ST able to understand aprox. 30/40% of pt's utterances. Pt will utilize compensatory strategies when prompted but has limited realization of his limited intelligibility - Goals 6-10 Previous Goal #6: Pt will verbally complete common phrases to increase expressive language with 80% acc during 3/4 sessions Goal 6 Status: Goal Progressing: Pt completed automatics from 1-10. Pt with x3 trials of saying 1-10 correctly. Pt stated ABC correctly x2, unable to progress to ABCD Previous Goal #7: Pt will complete written phrases/sentences to increase reading comprehension language with 80% acc during 3/4 sessions Goal 7 Status: Goal Progressing: Pt choose a word that completed a phrase with 3 choices with 60% acc Previous Goal #8: Pt will repeat words with 80% acc given phonemic cues as needed during 3/4 sessions. Goal 8 Status: Goal Progressing: Pt repeated 13/21 common words with max cues. Pt repeated 5/6 phonemic discrimination words with max cues. Pt imitated 1-10 with mod cues and ABC with max cues & singing. Pt unable to repeat 3 [place] or short sentences with personal information Objective Cog/Ling/Com - Test Administered Trcuvkson-Bxgzpzgwqm-Enxgiohsetsnr Assessment Administered: Yes Nwcpyafbh-Fzpefjdhnp-Udhdbzyiruqhc Assessment: Cognitive ? Linguistic skills were evaluated using patient/family interview, skilled observation and informal evaluation through tasks completed by the patient. - Orientation Orientation: Person - Identification Body parts/objects: Severe - Answer Yes/No Questions Simple: Severe Complex: Severe - Follows Commands 1 Step: Severe - Comments Comments: A low tech AAC board with yes, no, drink, eat, toilet, pain was used during the session. Pt answered yes, no questions with board given max support during 15% of opportunities. - Repetition Words: Severe - Naming Responsive naming: Severe [place]: Severe - Conversational Tasks Conversational Tasks: Severe Comments: Pt unable to answer questions or form coherent sentences. Pt was noted to use a few real words during the evaluation re: yeah, no, little boy, right. - Reading Picture-Word Matching Picture-Word matching: Severe Comments: 20% acc - Writing Words: Moderate Phrases: Severe Comments: Pt able to write his name and his son's name. Pt unable to write his birthday or complete sentences. Pt completed a 3 word spelling match with 50% acc. - Cognitive Linguistic Supervision/Saftey Awareness of deficits: Severe Being left home alone: Severe Managing medications: Severe Managing finances: Severe Plan - Plan Plan: Will recommend Pt for weekly outpatient speech therapy intervention address severe expressive aphasia and receptive. Pt would benefit from verbal and visual modeling, verbal/visual cues, repeated practice, speech in telligibility strategies, circumlocution training, and immediate feedback to improve awareness of deficit and communication. Without skilled intervention Pt is at risk for difficulty communicating basic, medical, emergent, social wants & needs, and interacting with family/friends at home, during social interactions, and at work. - Recommendations MBS: No Treatment Warranted: Yes Treatment Warranted: Receptive/ Expressive Language - Progress Prognosis: Good - Frequency Frequency: 2x /Week Duration: 6 Months - Goals that are Established Determination:: Goals will be added/modified as deemed necessary and appropriate. Therapy will be discontinued when results of re-evaluation indicate therapy is no longer needed or lack of progress has been documented. - Goal #1-5 Goal #1: Patient will identify common nouns from a field of 4 by pointing to the correct answer during 80% of opportunities during 3/4 sessions. Goal #2: Patient will identify common adjectives from a field of 3 by pointing to the correct answer during 80% of opportunities during 3/4 sessions. Goal #3: Patient will spell 5+ letter words given a pictures during 80% of opportunities during 3/4 sessions. Goal #4: Patient will follow 1 step commands with during 70% of opportunities during 3/4 sessions. Goal #5: Pt will I answer yes/no questions verbally, with gestures, or using augmentative communication during 70% of opportunities during 3/4 sessions. - Goal #6-10 Goal #6: Pt will utilize words, gestures and/or augmentative communication to repair communication breakdowns given min cues during conversation during 3/4 sessions. Goal #7: Pt will verbally complete common phrases to increase expressive language with 80% acc during 3/4 sessions Goal #8: Pt will complete written phrases/sentences to increase reading comprehension language with 80% acc during 3/4 sessions Education - Patient has Indicated that the Following Identified Educational Needs: Language Barrier - Patient Instruction Patient Education: Diagnosis, Treatment Plan, Goals Person Taught: Patient, Family Teaching Method: Discussion, Demonstration Response to teaching: Return demonstration, Verbalize understanding
--- NOTE | 2022-07-12 17:42 | HP.SP.REEV ---
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 Pt lives at home with his . Pt's son Rafiq is also involved in his care and was present for his speech therapy evaluation. Pt has a history of hearing loss. Smoking Status: Never smoker - Diagnosis Diagnosis: CVA - Pain Is pain an issue with your current prescribed condition?: No - Personal Preferred language: Eritrean History - History Date of Eval: 02/11/22 Previous speech therapy: Yes Other Relevant Medical History/Diagnoses/Surgery: Danny is a 86 year old male who was seen at [facility] for a speech and language evaluation. 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 Pt lives at home with his . Pt's son Rafiq is also involved in his care and was present for his speech therapy evaluation. Pt has a history of hearing loss. Smoking Status: Never smoker Hx Tobacco Use: No - Pain Is pain an issue with your current prescribed condition?: No Patient Allergies - Allergies Allergies lisinopril Adverse Reaction (Severe, Verified 04/28/22 13:50) cough Previous/Current Goals - Goals 1-5 Previous Goal #1: Patient will identify common nouns from a field of 4 by pointing to the correct answer during 80% of opportunities during 3/4 sessions. Goal 1 Status: Goal Progressing; Pt pointed to nouns (medium level) in a field of 4 with 80% acc. Previous Goal #2: Patient will identify common adjectives from a field of 3 by pointing to the correct answer during 80% of opportunities during 3/4 sessions. Goal 2 Status: Goal Progressing: Pt pointed to adjectives out of a field of 3 with 40% acc (easy level) Previous Goal #3: Patient will spell 5+ letter words given a pictures during 80% of opportunities during 3/4 sessions. Goal 3 Status: Goal Partially Met (03/29): Pt wrote 5 letter words with 80% acc with no distractor letters (Easy level). Previous Goal #4: Patient will follow 1 step commands with during 70% of opportunities during 3/4 sessions. Goal 4 Status: Goal Partially Met: Pt verbally completed common phrases with 20% acc. Previous Goal #5: Pt will I answer yes/no questions verbally, with gestures, or using augmentative communication during 70% of opportunities during 3/4 sessions. Goal 5 Status: Goal Partially Met (04/29): Pt answered yes/no verbal questions I with 70% acc - Goals 6-10 Previous Goal #6: Pt will utilize words, gestures and/or augmentative communication to repair communication breakdowns given min cues during conversation during 3/4 sessions. Goal 6 Status: Goal Progressing: Pt utilized compensatory strategies of writing and gestures in addition to verb speech to have a conversation with the ST given min cues. ST able to understand approx.. 40% of pt's utterances. Previous Goal #7: Pt will verbally complete common phrases to increase expressive language with 80% acc during 3/4 sessions Goal 7 Status: Goal Progressing: Pt completed automatics from 1-10. Pt with x3 trials of saying 1-10 correctly. Pt stated ABC correctly x2, unable to progress to ABCD Previous Goal #8: Pt will complete written phrases/sentences to increase reading comprehension language with 80% acc during 3/4 sessions Goal 8 Status: Goal Met (03/29): Pt completed phrases given 3 choices with 80% acc Previous Goal #9: Pt will repeat words with 80% acc given cues as needed during 3/4 sessions. Goal 9 Status: Goal progressing: Pt repeated 19/25 (76%) one to two syllable words with cues as needed. Objective Cog/Ling/Com - Test Administered Ofwnvwmvp-Gmsbmzwzrb-Azhpbfoqaiyhe Assessment Administered: Yes Ebrlzvxny-Pynbkmyuqt-Acdbbgwsdfbyc Assessment: Cognitive ? Linguistic skills were evaluated using patient/family interview, skilled observation and informal evaluation through tasks completed by the patient. - Orientation Orientation: Person - Identification Body parts/objects: Severe - Answer Yes/No Questions Simple: Severe Complex: Severe - Follows Commands 1 Step: Severe - Comments Comments: A low tech AAC board with yes, no, drink, eat, toilet, pain was used during the session. Pt answered yes, no questions with board given max support during 15% of opportunities. - Repetition Words: Severe - Naming Responsive naming: Severe [place]: Severe - Conversational Tasks Conversational Tasks: Severe Comments: Pt unable to answer questions or form coherent sentences. Pt was noted to use a few real words during the evaluation re: yeah, no, little boy, right. - Reading Picture-Word Matching Picture-Word matching: Severe Comments: 20% acc - Writing Words: Moderate Phrases: Severe Comments: Pt able to write his name and his son's name. Pt unable to write his birthday or complete sentences. Pt completed a 3 word spelling match with 50% acc. - Cognitive Linguistic Supervision/Saftey Awareness of deficits: Severe Being left home alone: Severe Managing medications: Severe Managing finances: Severe Plan - Plan Plan: Will recommend Pt for weekly outpatient speech therapy intervention address severe expressive aphasia and receptive. Pt would benefit from verbal and visual modeling, verbal/visual cues, repeated practice, speech intelligibility strategies, circumlocution training, and immediate feedback to improve awareness of deficit and communication. Without skilled intervention Pt is at risk for difficulty communicating basic, medical, emergent, social wants & needs, and interacting with family/friends at home, during social interactions, and at work. - Recommendations MBS: No Treatment Warranted: Yes Treatment Warranted: Receptive/ Expressive Language - Progress Prognosis: Good - Frequency Frequency: 2x /Week Duration: 4-6 Months - Goals that are Established Determination:: Goals will be added/modified as deemed necessary and appropriate. Therapy will be discontinued when results of re-evaluation indicate therapy is no longer needed or lack of progress has been documented. - Goal #1-5 Goal #1: Patient will identify common nouns from a field of 4 by pointing to the correct answer during 80% of opportunities during 3/4 sessions. Goal #2: Patient will identify common adjectives from a field of 3 by pointing to the correct answer during 80% of opportunities during 3/4 sessions. Goal #3: Patient will spell 5+ letter words given a pictures during 80% of opportunities during 3/4 sessions. Goal #4: Pt will I answer yes/no questions verbally, with gestures, or using augmentative communication during 70% of opportunities during 3/4 sessions. Goal #5: Pt will I answer yes/no questions verbally, with gestures, or using augmentative communication during 70% of opportunities during 3/4 sessions. - Goal #6-10 Goal #6: Pt will utilize words, gestures and/or augmentative communication to repair communication breakdowns given min cues during conversation during 3/4 sessions. Goal #7: Pt will verbally complete common phrases to increase expressive language with 80% acc during 3/4 sessions Goal #8: Pt will complete written phrases/sentences given 4 choices to increase reading comprehension language with 80% acc during 3/4 sessions Goal #9: Pt will repeat words with 80% acc given cues as needed during 3/4 sessions. Education - Patient has Indicated that the Following Identified Educational Needs: Language Barrier - Patient Instruction Patient Education: Diagnosis, Treatment Plan, Goals Person Taught: Patient, Family Teaching Method: Discussion, Demonstration Response to teaching: Return demonstration, Verbalize understanding
--- NOTE | 2022-08-11 10:56 | HP.SP.REEV ---
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 Pt lives at home with his . Pt's son Rafiq is also involved in his care and was present for his speech therapy evaluation. Pt has a history of hearing loss. Smoking Status: Never smoker - Diagnosis Diagnosis: CVA - Pain Is pain an issue with your current prescribed condition?: No - Personal Preferred language: Armenian History - History Date of Eval: 02/11/22 Previous speech therapy: Yes Other Relevant Medical History/Diagnoses/Surgery: Danny is a 86 year old male who was seen at [facility] for a speech and language evaluation. 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 Pt lives at home with his . Pt's son Rafiq is also involved in his care and was present for his speech therapy evaluation. Pt has a history of hearing loss. Smoking Status: Never smoker Hx Tobacco Use: No - Pain Is pain an issue with your current prescribed condition?: No Patient Allergies - Allergies Allergies lisinopril Adverse Reaction (Severe, Verified 08/08/22 13:24) cough Previous/Current Goals - Goals 1-5 Previous Goal #1: Patient will identify common nouns from a field of 4 by pointing to the correct answer during 80% of opportunities during 3/4 sessions. Goal 1 Status: GOAL MET: Pt identified common nouns scaling to less common nouns and has met this goal. Pt identified verbally presented words in a field of 4 on the [employer] therapy bella with 80% greater over 3 sessions on all three levels (easy, medium, and hard). Pt met this goal on 08/04/22. Previous Goal #2: Patient will identify common adjectives from a field of 3 by pointing to the correct answer during 80% of opportunities during 3/4 sessions. Goal 2 Status: Goal Progressing: Pt is currently working towards identifying the most common adjectives (easy level on [employer] therapy bella) from a field of three. Pt has met this goal 3/3 on the easy level with 80% acc on August 11. Progressing towards the medium level. Pt met this goal 1/ on the medium level with 90% acc on August 11 Previous Goal #3: Patient will spell 5+ letter words given a pictures during 80% of opportunities during 3/4 sessions. Goal 3 Status: GOAL MET: Pt spelled 5 letter words when given no distractor letter (easy level on [employer] therapy bella) with the following accuracy: July 14 - 90%, July 21 - 80%, July 28 - 80%. Previous Goal #4: Pt will I answer yes/no questions verbally, with gestures, or using augmentative communication during 90% of opportunities during 3/4 sessions. Goal 4 Status: GOAL MET: Pt I answered yes/no with 90% or higher during the following dates: July 21 - 90%, July 28 - 100%, August 02 - 100% Previous Goal #5: Pt will I follow 1 step directions presented verbally during 70% of opportunities during 3 sessions. Goal 5 Status: Goal Partially Met: Pt I followed 1 step directions presented verbally with 70% or higher on the following dates: July 28 - 80%, August 02 - 70%. - Goals 6-10 Previous Goal #6: Pt will utilize words, gestures and/or augmentative communication to repair communication breakdowns given min cues during conversation 5 times during 3/4 sessions. Goal 6 Status: Goal Met 2/3: Pt utilized compensatory strategies of writing and gestures in addition to verbal speech to have a conversation with the ST given min cues 5 times during a session on August 04 and August 11 Previous Goal #7: Pt will verbally complete common phrases to increase expressive language with 80% acc during 3/4 sessions Goal 7 Status: Goal Progressing: Pt verbally completed common phrases with 60% acc on August 02. Previous Goal #8: Pt will complete written phrases/sentences given 4 choices to increase reading comprehension language with 80% acc during 3/4 sessions Goal 8 Status: Goal Progressing: Pt completed phrases given 4 choices with 70% acc on August 04 Previous Goal #9: Pt will repeat words with 80% acc given cues as needed during 3/4 sessions. Goal 9 Status: Goal Met: Pt I repeated one to two words with cues as needed with 80% or higher on the following dates: July 19 - 80%, July 28 - 80%, August 02 - 80%. Pt I named up to 15 words during trials. Objective Cog/Ling/Com - Test Administered Ufsphnlti-Vvvyiqjqwf-Dhzedmhfxucch Assessment Administered: Yes Szvozyfma-Uoqmdhrkdb-Zcgeebebksnru Assessment: Cognitive ? Linguistic skills were evaluated using patient/family interview, skilled observation and informal evaluation through tasks completed by the patient. - Orientation Orientation: Person - Identification Body parts/objects: Severe - Answer Yes/No Questions Simple: Severe Complex: Severe - Follows Commands 1 Step: Severe - Comments Comments: A low tech AAC board with yes, no, drink, eat, toilet, pain was used during the session. Pt answered yes, no questions with board given max support during 15% of opportunities. - Repetition Words: Severe - Naming Responsive naming: Severe [place]: Severe - Conversational Tasks Conversational Tasks: Severe Comments: Pt unable to answer questions or form coherent sentences. Pt was noted to use a few real words during the evaluation re: yeah, no, little boy, right. - Reading Picture-Word Matching Picture-Word matching: Severe Comments: 20% acc - Writing Words: Moderate Phrases: Severe Comments: Pt able to write his name and his son's name. Pt unable to write his birthday or complete sentences. Pt completed a 3 word spelling match with 50% acc. - Cognitive Linguistic Supervision/Saftey Awareness of deficits: Severe Being left home alone: Severe Managing medications: Severe Managing finances: Severe Plan - Plan Plan: Will recommend Pt for weekly outpatient speech therapy intervention address severe expressive aphasia and receptive. Pt would benefit from verbal and visual modeling, verbal/visual cues, repeated practice, speech intelligibility strategies, circumlocution training, and immediate feedback to improve awareness of deficit and communication. Without skilled intervention Pt is at risk for difficulty communicating basic, medical, emergent, social wants & needs, and interacting with family/friends at home, during social interactions, and at work. - Recommendations MBS: No Treatment Warranted: Yes Treatment Warranted: Receptive/ Expressive Language - Progress Prognosis: Good - Frequency Frequency: 2x /Week Duration: 6 Months - Goals that are Established Determination:: Goals will be added/modified as deemed necessary and appropriate. Therapy will be discontinued when results of re-evaluation indicate therapy is no longer needed or lack of progress has been documented. - Goal #1-5 Goal #1: Patient will identify common, progressing to less common nouns from a field of 6 by pointing to the correct answer during 80% of opportunities during 3 measured sessions. Goal #2: Patient will identify common adjectives, progressing to less common adjectives from a field of 3 by pointing to the correct answer during 80% of opportunities during 3 measured sessions. Goal #3: Patient will identify common verbs, progressing to less common adjectives from a field of 3 by pointing to the correct answer during 80% of opportunities during 3 measured sessions. Goal #4: Pt will I follow one step directions presented verbally with 70% acc during 3 measured sessions. Goal #5: When presented a picture, pt will I name 22/25 one syllable words during a 25 word trial during 3 sessions. - Goal #6-10 Goal #6: Pt will utilize words, gestures and/or augmentative communication to repair communication breakdowns given min cues during conversation 5 times during 3 measured sessions. Goal #7: Pt will verbally complete common phrases to increase expressive language with 80% acc during 3 measured sessions Goal #8: Pt will complete written phrases/sentences given 4 choices to increase reading comprehension language with 80% acc during 3 measured sessions Goal #9: Patient will spell 6 letter words given a pictures and a verbal model during 80% of opportunities during 3 measured sessions. Education - Patient has Indicated that the Following Identified Educational Needs: Language Barrier - Patient Instruction Patient Education: Diagnosis, Treatment Plan, Goals Person Taught: Patient, Family Teaching Method: Discussion, Demonstration Response to teaching: Return demonstration, Verbalize understanding
== END 2022-08-11 19:00 | disposition home or self-care (01) ==
LOC: SP 10:00
PROVIDERS: PCP Nurse Practitioner Family; Referring Provider Family Medicine Geriatric Medicine; Visit Provider Nurse Practitioner Family
DX: R47.01 Aphasia (principal); I63.9 Cerebral infarction, unspecified
CPT/HCPCS: 92507; 92523

== ENCOUNTER → 2023-01-05 | Outpatient (CLI) | payer MEDICARE, BC, SELFPAY ==
[2023-01-05 12:33] LABS: Absolute Lymphocyte Count 1.63 X10^3/uL (0.83-4.51); Absolute Neutrophil Count 4.1 X10^3/uL (2.0-7.7); Basophil# 0.04 X10^3/uL; Basophil% 0.6 % (0-1); Eosinophil# 0.15 X10^3/uL; Eosinophils% 2.3 % (0-5); Hematocrit 44.5 % (40-54); Hemoglobin 14.8 g/dL (13.0-16.5); Lymphocyte # 1.63 X10^3/ul (0.83-4.51); Lymphocyte % 24.8 % (19-41); Mean Corp Hgb Conc 33.3 g/dL (32-36); Mean Corpuscular Hgb 33.5 pg (27.0-32.0); Mean Corpuscular Volume 100.7 fL (80-94); Mean Platelet Vol. 9.4 fl (6.2-12.0); Monocyte# 0.58 X10^3/uL; Monocyte% 8.8 % (0-10); NRBC Flagged by Analyzer 0 % (0-5); Neutrophil # 4.11 X10^3/uL (2.7-7.7); Neutrophil % 62.6 % (47-70); Platelet Count 167 K/mm3 (150-450); RBC Distribution Width CV 14.2 % (11.6-14.6); RBC Distribution Width SD 52.6 fl (35.1-43.9); Red Blood Count 4.42 M/mm3 (4.6-6.2); White Blood Count 6.6 K/mm3 (4.4-11.0)
[2023-01-05 12:44] LABS: CRP < 2.90 mg/L (0.0-3.0)
[2023-01-05 12:49] LABS: Erythrocyte Sedimentation Rate 5 mm/hr (0-20)
== END | disposition home or self-care (01) ==
LOC: MTLAB 10:04
PROVIDERS: PCP Nurse Practitioner Family; Referring Provider Physician Assistant; Visit Provider Physician Assistant
DX: Z96.652 Presence of left artificial knee joint (principal)
CPT/HCPCS: 36415; 85025; 85652; 86140

== ENCOUNTER 2023-02-07 10:00 | Outpatient (RCR) | payer MEDICARE, BC, SELFPAY ==
--- NOTE | 2022-09-29 10:30 | HP.SPREEV_ITS ---
History History Date of Eval: 02/23/22 Attending Doctor: JAZMINE Referring Doctor: Smoking Status: Never smoker Hx Tobacco Use: No Pain Is pain an issue with your current prescribed condition?: No Personal Preferred language: Latvian Patient Allergies Allergies Allergies: Allergies lisinopril Adverse Reaction (Severe, Verified 08/08/22 13:24) cough Previous/Current Goals Goals 1-5 Previous Goal #1: Patient will identify common, progressing to less common nouns from a field of 6 by pointing to the correct answer during 80% of opportunities during 3 measured sessions. Goal 1 Status: GOAL Partially Met: Pt identified common nouns with 80% acc of higher during 3 sessions. He met this part of the goal on 08/18 with 80% acc. Pt identified less common nouns (medium level) with 80% acc of higher during 3 sessions. He met this part of the goal on 09/16 with 90% acc. Pt is currently working on the hard level and has met this goal during 1/3 sessions. Previous Goal #2: Patient will identify common adjectives, progressing to less common adjectives from a field of 3 by pointing to the correct answer during 80% of opportunities during 3 measured sessions. Goal 2 Status: Goal MET: Pt identified common to less common adjectives with 80% acc of higher in sessions. Pt met this part of the goal with 80% acc with less common adjectives on 09/09. Pt is starting to work on common adjectives in a choice of 4. Previous Goal #3: Patient will identify common verbs, progressing to less common adjectives from a field of 3 by pointing to the correct answer during 80% of opportunities during 3 measured sessions. Goal 3 Status: Goal progressing: Pt has partially met this goal. He identified common verbs with 80% acc or higher during 3 sessions on 08/30/22. He is currently working on less common verbs, which he has met 2/3 times. His most current data was 80% acc on 09/23/22. Pt will progress to the least common verbs (hard level on [employer] therapy bella) before moving on to choice of 4. Previous Goal #4: Pt will I follow one step directions presented verbally with 70% acc during 3 measured sessions. Goal 4 Status: Goal Met: Pt I followed 1 step directions presented verbally with 70% or higher on the following dates: July 28 - 80%, August 02 - 70%, August 18 - 80% acc. Previous Goal #5: When presented a picture, pt will I name one syllable words during a 25 word trial during 3 sessions. Goal 5 Status: Goal Progressing: most recent data - 09/21: 16 I, increased to 23 with cues. Goals 6-10 Previous Goal #6: Pt will utilize words, gestures and/or augmentative communication to repair communication breakdowns given min cues during conversation 5 times during 3 measured sessions. Goal 6 Status: GOAL MET: Pt utilized words, gestures and/or augmentative communication to repair communication breakdowns given up to min cues during con versation at least 5 times during 3 sessions. Pt's preferred methods of repair is gestures and drawing. He met his goal on 08/16. Previous Goal #7: Pt will verbally complete common phrases to increase expressive language with 80% acc during 3 measured sessions Goal 7 Status: Goal Progressing: Most recent data, 09-23; Pt worked to tap out and sing common phrases using YON principles. Pt was able to accurately say 4/[address] Previous Goal #8: Pt will complete written phrases/sentences given 4 choices to increase reading comprehension language with 80% acc during 3 measured sessions Goal 8 Status: Goal Progressing: Pt completed phrases given 4 choices with 70% acc on 09/23. Goal Met 03/29 - 80% acc on 08/18. Previous Goal #9: Pt will repeat automatics with up to mod cues with 80% acc during 3 sessisons Goal 9 Status: Goal Progressing: Most recent data; Pt sang twinkle twinkle little starts with mod to max cuing to tap the beat. [employer]. 60% of words accurate in song Previous Goal #10: Pt will I repeat 2-syllable words during 3 measured sessions Goal 10 Status: Goal Progressing: Pt I verbalized 02/10 cvcv words, increased to 15/ repeating/with cues. * Pediatric & Adult patients Adult Reference: Neuro-QoL instrument Radiation Oncology Patient Plan Plan Plan: Will recommend Pt for weekly outpatient speech therapy intervention address severe expressive aphasia and receptive. Pt would benefit from verbal and visual modeling, verbal/visual cues, repeated practice, speech intelligibility strategies, circumlocution training, and immediate feedback to improve awareness of deficit and communication. Without skilled intervention Pt is at risk for difficulty communicating basic, medical, emergent, social wants & needs, and interacting with family/friends at home, and during social interactions. Recommendations MBS: No Treatment Warranted: Yes Treatment Warranted: Receptive/ Expressive Language Progress Prognosis: Excellent Frequency Frequency: 2x /Week Goals that are Established Determination:: Goals will be added/modified as deemed necessary and appropriate. Therapy will be discontinued when results of re-evaluation indicate therapy is no longer needed or lack of progress has been documented. Goal #1-5 Goal #1: Patient will identify common, progressing to less common nouns from a field of 6 by pointing to the correct answer during 80% of opportunities during 3 measured sessions. Goal #2: Patient will identify common adjectives, progressing to less common adjectives from a field of 3 by pointing to the correct answer during 80% of opportunities during 3 measured sessions. Goal #3: Patient will identify common verbs, progressing to less common adjectives from a field of 3 by pointing to the correct answer during 80% of opportunities during 3 measured sessions. Goal #4: Pt will I follow one step directions presented verbally with 70% acc during 3 measured sessions. Goal #5: When presented a picture, pt will I name 22/25 one syllable words during a 25 word trial during 3 sessions. Goal #6-10 Goal #6: Pt will utilize words, gestures and/or augmentative communication to repair communication breakdowns given min cues during conversation 5 times during 3 measured sessions. Goal #7: Pt will verbally complete common phrases to increase expressive lang uage with 80% acc during 3 measured sessions Goal #8: Pt will complete written phrases/sentences given 4 choices to increase reading comprehension language with 80% acc during 3 measured sessions Goal #9: Pt will tap out and repeat common phrases intelligibly to a familiar listener during 4/5 trials during 3 sessions. Goal #10: Pt will independently complete reading comprehension tasks with 80% acc during 3 sessions.
--- NOTE | 2022-10-31 11:36 | HP.SPREEV_ITS ---
History History Date of Eval: 02/23/22 Attending Doctor: JAZMINE Referring Doctor: Smoking Status: Never smoker Hx Tobacco Use: No Pain Is pain an issue with your current prescribed condition?: No Personal Preferred language: [place] Patient Allergies Allergies Allergies: Allergies lisinopril Adverse Reaction (Severe, Verified 08/08/22 13:24) cough Previous/Current Goals Goals 1-5 Previous Goal #1: Patient will identify common, progressing to less common nouns from a field of 6 by pointing to the correct answer during 80% of opportunities during 3 measured sessions. Goal 1 Status: GOAL Partially Met: Pt identified common nouns with 80% acc of higher during 3 sessions. He met this part of the goal on 08/18 with 80% acc. Pt identified less common nouns (medium level) with 80% acc of higher during 3 sessions. He met this part of the goal on 09/16 with 90% acc. Pt is currently working on the hard level and has met this goal during 1/3 sessions. His most current data was 70% acc on 10/28/22. Previous Goal #2: Patient will identify common adjectives, progressing to less common adjectives from a field of 4 by pointing to the correct answer during 80% of opportunities during 3 measured sessions. Goal 2 Status: Goal Partially MET: Pt identified less common adjectives with 80% acc of higher during 3 sessions. Pt is working on less common (medium level on therapy bella) adjective in a field of 4. His most current data was 72% on 10/28. Previous Goal #3: Patient will identify common verbs, progressing to less common verbs from a field of 3 by pointing to the correct answer during 80% of opportunities during 3 measured sessions. Goal 3 Status: Goal Partially Met: Pt has partially met this goal. He identified common verbs with 80% acc or higher during 3 sessions on 08/30/22. He is currently working on less common verbs, which he has met 2/3 times. His most current data was 70% acc on 10/28/22. Pt will progress to the least common verbs (hard level on [address] therapy bella) before moving on to choice of 4. Previous Goal #5: When presented a picture, pt will I name / one syllable words during a 25 word trial during 3 sessions. Goal 5 Status: Goal Progressing: most recent data 01/18 I, increased to with cues. Goals 6-10 Previous Goal #6: Pt will utilize words, gestures and/or augmentative communication to repair communication breakdowns given up to min cues during conversation 10 times during 3 measured sessions. Goal 6 Status: GOAL Progressing: Pt utilized words, gestures and/or augmentative communication to repair communication breakdowns given min to mod cues during conversation at 6 times during the most recent session. Previous Goal #7: Pt will complete oral motor exercises for drooling I during 3 sessions Goal 7 Status: Goal Progressing: Pt completed 3 oral motor exercises for lip closure x5 each with min cues. Pt able to pass a single sip and sequential sip swallow test Previous Goal #8: Pt will complete written phrases/sentences given 4 choices to increase reading comprehension language with 80% acc during 3 measured sessions Goal 8 Status: Goal Progressing: Pt completed phrases given 4 choices with 60% acc Previous Goal #9: Pt will tap out and repeat common phrases intelligibly to a familiar listener during 4/5 trials during 3 sessions. Goal 9 Status: Pt tapped out 5 phrases with max cues that would identified by a familiar listener if context was given Previous Goal #10: Pt will independently complete reading comprehension tasks with 80% acc during 3 sessions. Goal 10 Status: Goal Not targeted yet due to prioritizing goals 1-9 * Pediatric & Adult patients Adult Reference: Neuro-QoL instrument Radiation Oncology Patient Other Other Dysphagia: -: Pt recently passed a swallow screening with single and sequential sips with no s/s of aspiration Progress: -: Pt has been making consistent progress and is motivated to continue tx. Pt's family is involved in his care and assist with care over assignments between sessions. Per pt and his granddaughter, pt's doctor recommended a driving evaluation to determine if pt is resume driving. Pt still requires skilled treatment to address goals and train family to assist in his care. Plan Plan Plan: Will recommend Pt for weekly outpatient speech therapy intervention address severe expressive aphasia and receptive. Pt would benefit from verbal and visual modeling, verbal/visual cues, repeated practice, speech intelligibility strategies, circumlocution training, and immediate feedback to improve awareness of deficit and communication. Without skilled intervention Pt is at risk for difficulty communicating basic, medical, emergent, social wants & needs, and interacting with family/friends at home, and during social interactions. Recommendations MBS: No Treatment Warranted: Yes Treatment Warranted: Receptive/ Expressive Language Progress Prognosis: Excellent Frequency Frequency: 2x /Week Duration: 2-4 Months Goals that are Established Determination:: Goals will be added/modified as deemed necessary and appropriate. Therapy will be discontinued when results of re-evaluation indicate therapy is no longer needed or lack of progress has been documented. Goal #1-5 Goal #1: Patient will identify common, progressing to less common nouns from a field of 6 by pointing to the correct answer during 80% of opportunities during 3 measured sessions. Goal #2: Patient will identify common adjectives, progressing to less common adjectives from a field of 3 by pointing to the correct answer during 80% of opportunities during 3 measured sessions. Goal #3: Patient will identify common verbs, progressing to less common verbs from a field of 3 by pointing to the correct answer during 80% of opportunities during 3 measured sessions. Goal #4: Pt will repeat vc, cv, and cvcv words with 80% acc given up to min cues during 3 sessions Goal #5: When presented a picture, pt will I name 22/25 one syllable words during a 25 word trial during 3 sessions. Goal #6-10 Goal #6: Pt will utilize words, gestures and/or augmentative communication to repair communication breakdowns given up to min cues during conversation 10 times during 3 measured sessions. Goal #7: Pt will complete oral motor exercises for drooling I during 3 sessions. Goal #8: Pt will independently complete reading comprehension tasks with 80% acc during 3 sessions. Goal #9: Pt will tap out and repeat common phrases intelligibly to a familiar listener during 4/5 trials during 3 sessions. Goal #10: Pt will spell 6+ letter words with 80% acc during 3 measured sessions.
--- NOTE | 2022-12-08 16:46 | HP.SP.REEV ---
History History Date of Eval: 02/23/22 Attending Doctor: JAZMINE Referring Doctor: Smoking Status: Never smoker Hx Tobacco Use: No Pain Is pain an issue with your current prescribed condition?: No Personal Preferred language: [place] Patient Allergies Allergies Allergies: Allergies lisinopril Adverse Reaction (Severe, Verified 08/08/22 13:24) cough Previous/Current Goals Goals 1-5 Previous Goal #1: Patient will identify common, progressing to less common nouns from a field of 6 by pointing to the correct answer during 80% of opportunities during 3 measured sessions. Goal 1 Status: GOAL Partially Met: Pt identified common nouns with 80% acc of higher during 3 sessions. He met this part of the goal on 08/18 with 80% acc. Pt identified less common nouns (medium level) with 80% acc of higher during 3 sessions. He met this part of the goal on 09/16 with 90% acc. Pt is currently working on the hard level and has met this goal during 1/3 sessions. His most current data was 60% acc on 11/23/22. Previous Goal #2: Patient will identify common adjectives, progressing to less common adjectives from a field of 3 by pointing to the correct answer during 80% of opportunities during 3 measured sessions. Goal 2 Status: Goal Partially MET: Pt identified less common adjectives with 80% acc of higher during 3 sessions. Pt is working on less common (medium level on therapy bella) adjective in a field of 4. His most current data was 20% on 11/13. Previous Goal #3: Patient will identify common verbs, progressing to less common verbs from a field of 3 by pointing to the correct answer during 80% of opportunities during 3 measured sessions. Goal 3 Status: Goal Partially Met: Pt has partially met this goal. He identified common verbs with 80% acc or higher during 3 sessions on 08/30/22 and less common verbs with 80% or higher on 11/07. Pt will progress to the least common verbs (hard level on [address] therapy bella) before moving on to choice of 4. Previous Goal #4: Pt will repeat vc, cv, and cvcv words with 80% acc given up to min cues during 3 sessions Goal 4 Status: Goal Progressing: Pt repeated 2 word phrases with rhyming cvcv words with 30% acc and max cues. Pt repeated automatics, nursery rhythms, and phrases put to beats. Worked on isolating out words after practicing the short phrase put to a beat Previous Goal #5: When presented a picture and written word, pt will I name / one syllable words during a 25 word trial during 3 sessions. Goal 5 Status: Goal Progressing: One syllable word - 01/18 I, increased to 18/ cued. Often would add a plural or verb ending to words. Goals 6-10 Previous Goal #6: Pt will utilize words, gestures and/or augmentative communication to repair communication breakdowns given up to min cues during conversation 10 times during 3 measured sessions. Goal 6 Status: Goal Progressing: Pt required mod cues to utilize whiteboard x5. Pt answered questions when provided a written cue. Pt did better when cues were written about convo topic to help him keep up. Previous Goal #7: Pt will complete oral motor exercises for drooling I during 3 sessions. Goal 7 Status: Goal Progressing: Pt drooling during session today. Pt completed oral motor exercises via labial retraction for 10 reps with 5 sec hold, labial protrusion for 10 reps with 5 sec hold, labial retraction with protrusion for 20 reps, hold air in cheeks for 10 reps with 5 sec hold. Previous Goal #8: Pt will independently complete reading comprehension tasks with 80% acc during 3 sessions. Goal 8 Status: Recently introduced: Pt completed word associations/completions using nouns and familiar rhymes and songs using written cues. (salt and ___). This was a new activity and he seemed to enjoy it. Some written choices were given and he was able to choose from 2 with 75% accuracy. Previous Goal #9: Pt will tap out and repeat common phrases intelligibly to a familiar listener during 4/5 trials during 3 sessions. Goal 9 Status: Goal Progressing: Worked on [place] with syllable dots drawn below the words. Pt repeating while tapping with 60% acc and benefited from min visual and hand cues to articulate first phoneme of each to improve to 80% acc. Worked on [place] with syllable dots drawn below the words. Pt repeating while tapping with 45% acc with Pt having greatest difficulty with 3 and 4 syllable months - he benefited from max visual and hand cues to articulate first phoneme of each. Previous Goal #10: Pt will spell 6+ letter words with 80% acc during 3 measured sessions. Goal 10 Status: Goal Progressing, not targeted as frequently during most recent sessions. Pt also worked on this goal with caregivers at home Reference: Neuro-QoL instrument Radiation Oncology Patient Other Other Dysphagia: -: Pt recently passed a swallow screening with single and sequential sips with no s/s of aspiration Progress: -: Pt has been making consistent progress and is motivated to continue tx. Pt's family is involved in his care and assist with care over assignments between sessions. Per pt and his granddaughter, pt's doctor recommended a driving evaluation to determine if pt is resume driving. Pt still requires skilled treatment to address goals and train family to assist in his care. Plan Plan Plan: Will recommend Pt for weekly outpatient speech therapy intervention address severe expressive aphasia and receptive. Pt would benefit from verbal and visual modeling, verbal/visual cues, repeated practice, speech intelligibility strategies, circumlocution training, and immediate feedback to improve awareness of deficit and communication. Without skilled intervention Pt is at risk for difficulty communicating basic, medical, emergent, social wants & needs, and interacting with family/friends at home, and during social interactions. Recommendations MBS: No Treatment Warranted: Yes Treatment Warranted: Speech Sound Production, Receptive/ Expressive Language and Dysphagia Progress Prognosis: Excellent Frequency Frequency: 2x /Week Duration: 2-4 Months Goals that are Established Determination:: Goals will be added/modified as deemed necessary and appropriate. Therapy will be discontinued when results of re-evaluation indicate therapy is no longer needed or lack of progress has been documented. Goal #1-5 Goal #1: Patient will identify common, progressing to less common nouns from a field of 6 by pointing to the correct answer during 80% of opportunities during 3 measured sessions. Goal #2: Patient will identify common adjectives, progressing to less common adjectives from a field of 3 by pointing to the correct answer during 80% of opportunities during 3 measured sessions. Goal #3: Patient will identify common verbs, progressing to less common verbs from a field of 3 by pointing to the correct answer during 80% of opportunities during 3 measured sessions. Goal #4: Pt will repeat vc, cv, and cvcv words with 80% acc given up to min cues during 3 sessions Goal #5: When presented a picture and written word, pt will I name 22/25 one syllable words during a 25 word trial during 3 sessions. Goal #6-10 Goal #6: Pt will utilize words, gestures and/or augmentative communication to repair communication breakdowns given up to min cues during conversation 10 times during 3 measured sessions. Goal #7: Pt will complete oral motor exercises for drooling I during 3 sessions. Goal #8: Pt will independently complete reading comprehension tasks with 80% acc during 3 sessions. Goal #9: Pt will tap out and repeat common phrases intelligibly to a familiar listener during 4/5 trials during 3 sessions. Goal #10: Pt will spell 6+ letter words with 80% acc during 3 measured sessions.
--- NOTE | 2023-01-13 10:23 | HP.SP.REEV ---
History History Date of Eval: 02/23/22 Attending Doctor: JAZMINE Referring Doctor: Smoking Status: Never smoker Hx Tobacco Use: No Pain Is pain an issue with your current prescribed condition?: No Personal Preferred language: [place] Patient Allergies Allergies Allergies: Allergies lisinopril Adverse Reaction (Severe, Verified 01/10/23 14:36) cough Previous/Current Goals Goals 1-5 Previous Goal #1: Patient will identify common, progressing to less common nouns from a field of 6 by pointing to the correct answer during 90% of opportunities during 3 measured sessions. Goal 1 Status: GOAL Met: Pt identified common nouns with 80% acc or higher during 3 sessions. Previous Goal #2: Patient will identify common adjectives, progressing to less common adjectives from a field of 3 by pointing to the correct answer during 80% of opportunities during 3 measured sessions. Goal 2 Status: Goal Partially MET: Pt identified less common adjectives with 80% acc of higher during 3 sessions. Pt is working on less common (medium level on therapy bella) adjective in a field of 4. His most current data was 72%. Previous Goal #3: Patient will identify common verbs, progressing to less common verbs from a field of 4 by pointing to the correct answer during 80% of opportunities during 3 measured sessions. Goal 3 Status: Goal Progressing: pt's identified common verbs out of 4 choices with 56% acc during the last data collect session Previous Goal #4: Pt will repeat vc, cv, and cvcv words with 80% acc given up to min cues during 3 sessions Goal 4 Status: Goal Progressing: Worked on 100 high frequency core words today. I; 50/100 cued; 84/100 Previous Goal #5: When presented a picture and written word, pt will I name 22/25 one syllable words during a 25 word trial during 3 sessions. Goal 5 Status: Goal Progressing: One syllable word 16/25 I, increased to 23/25 cued. Often would add a plural or verb ending to words Data was collected on 01/03. Goals 6-10 Previous Goal #6: Pt will utilize words, gestures and/or augmentative communication to repair communication breakdowns given up to min cues during conversation 10 times during 3 measured sessions. Goal 6 Status: Goal Progressing: Pt required mod cues to utilize whiteboard x5. Pt answered questions when provided a written cue. Pt did better when cues were written about convo topic to help him keep up. Also discussed with his Ruth how to aid his communication and make sure he is participating on conversation Previous Goal #7: Pt will complete oral motor exercises for drooling I during 3 sessions. Goal 7 Status: Goal Progressing: Reviewed Oral motor exercises re: pucker/smile, puffed cheek air transfer, alt pucker, and lip seal. Discussed slowing down and counting with fingers to help avoid rushing Previous Goal #8: Pt will independently complete reading comprehension tasks with 80% acc during 3 sessions. Goal 8 Status: Goal Progressing: phrase matching to pictures, 70% acc Previous Goal #9: Pt will tap out and repeat common phrases intelligibly to a familiar listener during 4/5 trials during 3 sessions. Goal 9 Status: Goal Progressing; pt still requires cues to use this strategy at the word level, but is able to use the strategy when cued to increase his production accuracy Previous Goal #10: Pt will spell 6+ letter words with 80% acc during 3 measured sessions. Goal 10 Status: Goal Progressing; Spelling, 6 letter words; 60% acc Reference: Neuro-QoL instrument Radiation Oncology Patient Other Other Dysphagia: -: Pt recently passed a swallow screening with single and sequential sips with no s/s of aspiration Progress: -: Pt has been making consistent progress and is motivated to continue tx. Pt's family is involved in his care and assist with care over assignments between sessions. Per pt and his granddaughter, pt's doctor recommended a driving evaluation to determine if pt is resume driving. Pt still requires skilled treatment to address goals and train family to assist in his care. Plan Plan Plan: Will recommend Pt for weekly outpatient speech therapy intervention address severe expressive aphasia and receptive. Pt would benefit from verbal and visual modeling, verbal/visual cues, repeated practice, speech intelligibility strategies, circumlocution training, and immediate feedback to improve awareness of deficit and communication. Without skilled intervention Pt is at risk for difficulty communicating basic, medical, emergent, social wants & needs, and interacting with family/friends at home, and during social interactions. Pt and his will be going to [place] for the winter and he will continue with Teletherapy Recommendations MBS: No Treatment Warranted: Yes Treatment Warranted: Speech Sound Production, Receptive/ Expressive Language and Dysphagia Progress Prognosis: Excellent Frequency Frequency: 2x /Week Duration: 2-4 Months Goals that are Established Determination:: Goals will be added/modified as deemed necessary and appropriate. Therapy will be discontinued when results of re-evaluation indicate therapy is no longer needed or lack of progress has been documented. Goal #1-5 Goal #1: During structured, ST led tasks, Pt will identify rhyming words independently with 80% acc over 3 sessions to work towards completing phonetic component analysis Goal #2: Patient will identify common adjectives, progressing to less common adjectives from a field of 4 by pointing to the correct answer during 80% of opportunities during 3 measured sessions. Goal #3: Patient will identify common verbs, progressing to less common verbs from a field of 4 by pointing to the correct answer during 80% of opportunities during 3 measured sessions. Goal #4: Pt will repeat vc, cv, and cvcv words with 80% acc given up to min cues during 3 sessions Goal #5: When presented a picture and written word, pt will I name 22/25 one syllable words during a 25 word trial during 3 sessions. Goal #6-10 Goal #6: Pt will utilize words, gestures and/or augmentative communication to repair communication breakdowns given up to min cues during conversation 10 times during 3 measured sessions. Goal #7: Pt will complete oral motor exercises for drooling I during 3 sessions. Goal #8: Pt will independently complete reading comprehension tasks with 80% acc during 3 sessions. Goal #9: Pt will spell 6+ letter words with 80% acc during 3 measured sessions.
== END 2023-02-07 19:00 | disposition home or self-care (01) ==
LOC: SP 10:00
PROVIDERS: PCP Nurse Practitioner Family; Referring Provider Family Medicine Geriatric Medicine; Visit Provider Nurse Practitioner Family
DX: I69.320 Aphasia following cerebral infarction (principal)
CPT/HCPCS: 92507; 92526

== ENCOUNTER 2023-08-16 08:30 | Outpatient (RCR) | payer MEDICARE, BC, SELFPAY ==
--- NOTE | 2023-03-09 12:41 | HP.SP.REEV ---
History History Date of Eval: 02/14/22 Attending Doctor: JAZMINE Smoking Status: Never smoker Hx Tobacco Use: No Pain Is pain an issue with your current prescribed condition?: No Personal Preferred language: [place]ian Patient Allergies Allergies Allergies: Allergies lisinopril Adverse Reaction (Severe, Verified 01/10/23 14:36) cough Previous/Current Goals Goals 1-5 Previous Goal #1: During structured, ST led tasks, Pt will identify rhyming words independently with 80% acc over 3 sessions to work towards completing phonetic component analysis Goal 1 Status: Goal Progressing; Rhyming words, choice of 3: 60% acc, increased to 80% acc with cues Previous Goal #2: Patient will identify common adjectives, progressing to less common adjectives from a field of 4 by pointing to the correct answer during 80% of opportunities during 3 measured sessions. Goal 2 Status: Goal Not targeted over teletherapy Previous Goal #3: Patient will identify common verbs, progressing to less common verbs from a field of 4 by pointing to the correct answer during 80% of opportunities during 3 measured sessions. Goal 3 Status: Goal not targeted over teletherapy Previous Goal #4: Pt will repeat vc, cv, and cvcv words with 80% acc given up to min cues during 3 sessions Goal 4 Status: Goal Progressing: Pt repeated various 1/2 syllable words in the session with mod to max cues. cvcv words - 12/10 I, increased to / cued. Pt named 3 items you would need to various tasks with the following accuracy - trial 1) 0/3, increased to 3/3 cued - trial 2) 1/3, increased to 3/3 cued - trial 3) 1/3, increased to 3/3 cued - trial 4) 0/3, increased to 2/3 cued Pt repeated 21/26 letters, increased to 24/26 letter cued. Previous Goal #5: When presented a picture and written word, pt will I name 22/ one syllable words during a 25 word trial during 3 sessions. Goal 5 Status: Goal Progressing; 1 syllable words - 02/18, increased to 20/25 cued Goals 6-10 Previous Goal #6: Pt will utilize words, gestures and/or augmentative communication to repair communication breakdowns given up to min cues during conversation 10 times during 3 measured sessions. Goal 6 Status: Goal progressing: Pt participated in conversation with ST using a picture to help with word finding & repair. Pt asked the ST x4 questions. Pt also answered x8 questions when provided a written question. Pt also described the weather by selecting words from a choice of 2 & then repeating all the choices together. Previous Goal #7: Pt will complete oral motor exercises for drooling I during 3 sessions. Goal 7 Status: Goal MET - Pt can I complete exercises at home without cuing from ST. Previous Goal #8: Pt will independently complete reading comprehension tasks with 80% acc during 3 sessions. Goal 8 Status: Goal Progressing; Pt answered written y/n questions with 60% acc. Reference: Neuro-QoL instrument Radiation Oncology Patient Plan Plan Plan: Will recommend Pt for weekly outpatient speech therapy intervention address severe expressive aphasia and receptive. Pt would benefit from verbal and visual modeling, verbal/visual cues, repeated practice, speech intelligibility strategies, circumlocution training, and immediate feedback to improve awareness of deficit and communication. Without skilled intervention Pt is at risk for difficulty communicating basic, medical, emergent, social wants & needs, and interacting with family/friends at home, and during social interactions. Pt and his will be going to [place] for the winter and he will continue with Teletherapy Recommendations MBS: No Treatment Warranted: Yes Treatment Warranted: Speech Sound Production and Receptive/ Expressive Language Progress Prognosis: Good Frequency Frequency: 2x /Week Duration: 4-6 Months Goals that are Established Determination:: Goals will be added/modified as deemed necessary and appropriate. Therapy will be discontinued when results of re-evaluation indicate therapy is no longer needed or lack of progress has been documented. Goal #1-5 Goal #1: During structured, ST led tasks, Pt will identify rhyming words independently with 80% acc over 3 sessions to work towards completing phonetic component analysis Goal #2: Pt will repeat vc, cv, cvc and cvcv words with 80% acc given up to min cues during 3 sessions Goal #3: Pt will name 3 items needed to complete a task to improve categorical naming given up to mod cues during 4/5 trials over 3 sessions. Goal #4: Pt will read and answer yes/no question with 80% acc over 3 measured session to improve reading comprehension. Goal #5: Pt will utilize total communication to ask effectively questions during conversation during 2/3 opporunties with up to mod cues over 3 sessions. Goal #6-10 Goal #6: Pt will utilize total communication to answer yes/no and WH questions during conversation during 2/3 opportunities with up to one visual/written (written question or picture) support over 3 sessions. Goal #7: Pt will utilize words, gestures and/or augmentative communication to repair communication breakdowns given up to min cues during conversation 10 times during 3 measured sessions. Goal #8: Pt will name common objects when presented with a picture with up to mod cues with 60% acc over 3 measured sessions. Goal #9: Pt will spell 6+ letter words with 80% acc during 3 measured sessions.
--- NOTE | 2023-04-17 09:21 | HP.SP.REEV ---
Patient Allergies Allergies Allergies: Allergies lisinopril Adverse Reaction (Severe, Verified 01/10/23 14:36) cough Previous/Current Goals Goals 1-5 Previous Goal #1: During structured, ST led tasks, Pt will identify rhyming words independently with 80% acc over 3 sessions to work towards completing phonetic component analysis Goal 1 Status: Goal Progressing: Rhyming words, Independent: 10/03, increased to 01/03 with choice of 3 Also worked on repeating the words afterwards Previous Goal #2: Pt will repeat vc, cv, cvc and cvcv words with 80% acc given up to min cues during 3 sessions Goal 2 Status: Goal Progressing: cvc words, paired with similar cvcv words: 05/06 increased to 11/03 with max cues Previous Goal #3: Pt will name 3 items needed to complete a task to improve categorical naming given up to mod cues during 4/5 trials over 3 sessions. Goal 3 Status: Goal Progressing; Pt named 3 items in a category with the following accuracy: - trial 1) 1/3 - trial 2) 0/3 - trial 3) 0/3 - trial 4) 2/3 - trial 5) 1/3 Previous Goal #4: Pt will read and answer yes/no question with 80% acc over 3 measured session to improve reading comprehension. Goal 4 Status: Goal Progressing: With visual supports given x4 I with a verbal question x2 cued Previous Goal #5: Pt will utilize total communication to ask effectively questions during conversation during 2/3 opporunties with up to mod cues over 3 sessions. Goal 5 Status: Goal Progressing: Pt asked ST questions that she was able to understand x1/4, increased to 3/4 with max repair attempts Goals 6-10 Previous Goal #6: Pt will utilize total communication to answer yes/no and WH questions during conversation during 2/3 opportunities with up to one visual/written (written question or picture) support over 3 sessions. Goal 6 Status: Goal Progressing; WH - 2/4 with up to mod cues. 4/4 with written prompt Previous Goal #7: Pt will utilize words, gestures and/or augmentative communication to repair communication breakdowns given up to min cues during conversation 10 times during 3 measured sessions. Goal 7 Status: Goal Progressing; Pt utilized words during conversation and rephrased as needed. Pt was able to answer if something was what he meant when ST wrote it down for him Previous Goal #8: Pt will name common objects when presented with a picture with up to mod cues with 60% acc over 3 measured sessions. Goal 8 Status: Goal Progressing; 02/18, increased to with written, verbal, and phonemic cues. Reference: Neuro-QoL instrument Radiation Oncology Patient Plan Plan Plan: Will recommend Pt for weekly outpatient speech therapy intervention address severe expressive aphasia and receptive. Pt would benefit from verbal and visual modeling, verbal/visual cues, repeated practice, speech intelligibility strategies, circumlocution training, and immediate feedback to improve awareness of deficit and communication. Without skilled intervention Pt is at risk for difficulty communicating basic, medical, emergent, social wants & needs, and interacting with family/friends at home, and during social interactions. Pt and his will be going to [place] for the winter and he will continue with Teletherapy Recommendations MBS: No Treatment Warranted: Yes Treatment Warranted: Speech Sound Production and Receptive/ Expressive Language Progress Prognosis: Good Frequency Frequency: 2x /Week Duration: 4-6 Months Goals that are Established Determination:: Goals will be added/modified as deemed necessary and appropriate. Therapy will be discontinued when results of re-evaluation indicate therapy is no longer needed or lack of progress has been documented. Goal #1-5 Goal #1: During structured, ST led tasks, Pt will identify rhyming words independently with 80% acc over 3 sessions to work towards completing phonetic component analysis Goal #2: Pt will repeat vc, cv, cvc and cvcv words with 80% acc given up to min cues during 3 sessions Goal #3: Pt will complete mod complex naming tasks including by not limited to name 3 items, categorical naming, and naming from descriptions given up to mod cues during 4/5 trials over 3 sessions. Goal #4: Pt will I verbalize route words and phrases (ABC's, nursery rhymes, DAYTON, months, etc.) with 80% acc over 3 measured sessions to improve expressive language skills Goal #5: Pt will utilize total communication to ask effectively questions during conversation during 2/3 opporunties with up to mod cues over 3 sessions. Goal #6-10 Goal #6: Pt will utilize total communication to answer yes/no and WH questions during conversation during 2/3 opportunities with up to one visual/written (written question or picture) support over 3 sessions. Goal #7: Pt will utilize words, gestures and/or augmentative communication to repair communication breakdowns given up to min cues during conversation 10 times during 3 measured sessions. Goal #8: Pt will name common objects when presented with a picture with up to mod cues with 60% acc over 3 measured sessions.
--- NOTE | 2023-05-29 17:24 | HP.SPREEV_ITS ---
Patient Allergies Allergies Allergies: Allergies lisinopril Adverse Reaction (Severe, Verified 01/10/23 14:36) cough Previous/Current Goals Goals 1-5 Previous Goal #1: During structured, ST led tasks, Pt will identify rhyming words independently with 80% acc over 3 sessions to work towards completing phonetic component analysis Goal 1 Status: Goal Progressing: rhyming - 07/04 I, increased to 01/03 with choice of 3. Repeated the rhyming pairs 07/04 I, increased to / cued Previous Goal #2: Pt will repeat vc, cv, cvc and cvcv words with 80% acc given up to min cues during 3 sessions Goal 2 Status: Goal Progressing: cvc - 08/03 I cvcv - 11/03 I cvc & cvcv paired: 10/03 I Able to say all with cues Previous Goal #3: Pt will complete mod complex naming tasks including by not limited to name 3 items, categorical naming, and naming from descriptions given up to mod cues during 4/5 trials over 3 sessions. Goal 3 Status: Goal Progressing: Pt named pictures x7 with mod cues. Pt required visual supports to say which restaurants he eats at Previous Goal #4: Pt will I verbalize route words and phrases (ABC's, nursery rhymes, DAYTON, months, etc.) with 80% acc over 3 measured sessions to improve expressive language skills Goal 4 Status: Goal Progress: Months; 01/05 with cues as needed Previous Goal #5: Pt will utilize total communication to ask effectively questions during conversation during 2/3 opporunties with up to mod cues over 3 sessions. Goal 5 Status: Goal Progressing: Worked on common phrase questions such as can I have ... with - drink order - able with cues - food orders - not able despite max cues - the bill - able with min cues Goals 6-10 Previous Goal #6: Pt will utilize total communication to answer yes/no and WH questions during conversation during 2/3 opportunities with up to one visual/written (written question or picture) support over 3 sessions. Goal 6 Status: Goal Progressin/5 with no to mod cues during conversation Previous Goal #7: Pt will utilize words, gestures and/or augmentative communication to repair communication breakdowns given up to min cues during conversation 10 times during 3 measured sessions. Goal 7 Status: Goal Progressing: Worked on common phrases such as can I have ... with - drink order - food orders - the bill Previous Goal #8: Pt will name common objects when presented with a picture with up to mod cues with 60% acc over 3 measured sessions. Goal 8 Status: Goal Progressing: common objects - 09/06 I, increased to 03/08 cued Reference: Neuro-QoL instrument Radiation Oncology Patient Plan Plan Plan: Will recommend Pt for weekly outpatient speech therapy intervention a ddress severe expressive aphasia and receptive. Pt would benefit from verbal and visual modeling, verbal/visual cues, repeated practice, speech intelligibility strategies, circumlocution training, and immediate feedback to improve awareness of deficit and communication. Without skilled intervention Pt is at risk for difficulty communicating basic, medical, emergent, social wants & needs, and interacting with family/friends at home, and during social interactions. Pt and his will be going to [place] for the winter and he will continue with Teletherapy Recommendations MBS: No Treatment Warranted: Yes Treatment Warranted: Speech Sound Production and Receptive/ Expressive Language Progress Prognosis: Good Frequency Frequency: 2x /Week Duration: 4-6 Months Goals that are Established Determination:: Goals will be added/modified as deemed necessary and appropriate. Therapy will be discontinued when results of re-evaluation i ndicate therapy is no longer needed or lack of progress has been documented. Goal #1-5 Goal #1: During structured, ST led tasks, Pt will identify rhyming words independently with 80% acc over 3 sessions to work towards completing phonetic component analysis Goal #2: Pt will repeat vc, cv, cvc and cvcv words with 80% acc given up to min cues during 3 sessions Goal #3: Pt will complete mod complex naming tasks including by not limited to name 3 items, categorical naming, and naming from descriptions given up to mod cues during 4/5 trials over 3 sessions. Goal #4: Pt will I verbalize route words and phrases (ABC's, nursery rhymes, DAYTON, months, etc.) with 80% acc over 3 measured sessions to improve expressive language skills Goal #5: Pt will utilize total communication to ask effectively questions during conversation during 2/3 opporunties with up to mod cues over 3 sessions. Goal #6-10 Goal #6: Pt will utilize total communication to answer yes/no and WH questions during conversation during 2/3 opportunities with up to one visual/written (written question or picture) support over 3 sessions. Goal #7: Pt will utilize words, gestures and/or augmentative communication to repair communication breakdowns given up to min cues during conversation 10 times during 3 measured sessions. Goal #8: Pt will name common objects when presented with a picture with up to mod cues with 60% acc over 3 measured sessions. Goal #9: Pt will spell 6+ letter words with 80% acc during 3 measured sessions.
--- NOTE | 2023-07-03 17:40 | HP.SPREEV_ITS ---
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 Smoking Status: Never smoker Diagnosis Diagnosis: CVA, mixed expressive and receptive aphasia Pain Is pain an issue with your current prescribed condition?: No Personal Preferred language: Naur[place] Patient Allergies Allergies Allergies: Allergies lisinopril Adverse Reaction (Severe, Verified 01/10/23 14:36) cough Previous/Current Goals Goals 1-5 Previous Goal #1: During structured, ST led tasks, Pt will identify rhyming words independently with 80% acc over 3 sessions to work towards completing phonetic component analysis Goal 1 Status: Goal Progressing: rhyming - 07/04 I, increased to 12/04 with choice of 3. Previous Goal #2: Pt will repeat vc, cv, cvc and cvcv words with 80% acc given up to min cues during 3 sessions Goal 2 Status: Goal Progressing: cvcvcv: 09/03 I to 11/03 cued Previous Goal #3: Pt will complete mod complex naming tasks including by not limited to name 3 items, categorical naming, and naming from descriptions given up to mod cues during 4/5 trials over 3 sessions. Goal 3 Status: Goal Progressing: Worked on make a sentence about a picture when barrientos written word choices are written. Pt was not able to I make an intelligible sentence about the picture. Pt repeat x2/5 sentences after a model and verbal/visual cues Previous Goal #4: Pt will I verbalize route words and phrases (ABC's, nursery rhymes, DAYTON, months, etc.) with 80% acc over 3 measured sessions to improve expressive language skills Goal 4 Status: Goal Progressing: Personal Information: Pt I named - his first name - his son name (naga) - [facility] - [facility] ([place]) - Dr's name (Dr. aHle) - birthday ([birth year]) Pt named with cues: - year ('40) - age (87) - legal name - street name - state Previous Goal #5: Pt will utilize total communication to ask effectively questions during conversation during 2/3 opporunties with up to mod cues over 3 sessions. Goal 5 Status: Goal Progressin/8 I, 11/01 with mod verbal, visual and written cues. Goals 6-10 Previous Goal #6: Pt will utilize total communication to answer yes/no and WH questions during conversation during 2/3 opportunities with up to one visual/written (written question or picture) support over 3 sessions. Goal 6 Status: Goal Progressing: Pt answers questions with up to mod cues during supported conversation with ST Previous Goal #7: Pt will name common objects when presented with a picture with up to mod cues with 60% acc over 3 measured sessions. Goal 7 Status: Goal Progressing: Verb namin/20 opp, Increased to 03/15 with the written word and w/ cues Reference: Neuro-QoL instrument Radiation Oncology Patient Plan Plan Plan: Will recommend Pt for weekly outpatient speech therapy intervention address severe expressive aphasia and receptive. Pt would benefit from verbal and visual modeling, verbal/visual cues, repeated practice, speech intelligibility strategies, circumlocution training, and immediate feedback to improve awareness of deficit and communication. Without skilled intervention Pt is at risk for difficulty communicating basic, medical, emergent, social wants & needs, and interacting with family/friends at home, and during social interactions. Pt and his will be going to [place] for the winter and he will continue with Teletherapy Recommendations MBS: No Treatment Warranted: Yes Treatment Warranted: Receptive/ Expressive Language Progress Prognosis: Excellent Frequency Frequency: 1-2x /Week Duration: 2-4 Months Goals that are Established Determination:: Goals will be added/modified as deemed necessary and appropriate. Therapy will be discontinued when results of re-evaluation indicate therapy is no longer needed or lack of progress has been documented. Goal #1-5 Goal #1: During structured, ST led tasks, Pt will identify rhyming words independently with 80% acc over 3 sessions to work towards completing phonetic component analysis Goal #2: Pt will repeat vc, cv, cvc and cvcv words with 80% acc given up to min cues during 3 sessions Goal #3: Pt will complete mod complex naming tasks including by not limited to name 3 items, categorical naming, and naming from descriptions given up to mod cues during 4/5 trials over 3 sessions. Goal #4: Pt will verbalize his personal information with up to min cues over 3 measured sessions. Goal #5: Pt will utilize total communication to ask effectively questions during conversation during 2/3 opporunties with up to mod cues over 3 sessions. Goal #6-10 Goal #6: Pt will utilize total communication to answer yes/no and WH questions during conversation during 2/3 opportunities with up to one visual/written (written question or picture) support over 3 sessions. Goal #7: Pt will name common objects when presented with a picture with up to mod cues with 60% acc over 3 measured sessions. Goal #8: Pt will utilize total communication and up to mod cues to role play communication scenarios to improve pt's ability complete ADLS over 3 measured sessions. Goal #9: Pt will spell 6+ letter words with 80% acc during 3 measured sessions.
--- NOTE | 2023-08-14 11:42 | HP.SPREEV_ITS ---
Visit History Visit Info Date of Eval: 02/14/22 Visit: 1 Insurance Date Limit: 03/26/24 Gravity Meter Operator: JAMAAL Jeffers Attending Doctor: JAZMINE Reason for Referral: STROKE / EXPRESSIVE APHASIA / [employer] TO FAX Smoking Status: Never smoker Diagnosis Diagnosis: CVA, mixed expressive and receptive aphasia Pain Is pain an issue with your current prescribed condition?: No Personal Preferred language: [place] Patient Allergies Allergies Allergies: Allergies lisinopril Adverse Reaction (Severe, Verified 01/10/23 14:36) cough Previous/Current Goals Goals 1-5 Previous Goal #1: During structured, ST led tasks, Pt will identify rhyming words independently with 80% acc over 3 sessions to work towards completing phonetic component analysis Goal 1 Status: Goal Progressing: Reviewed rhyming words and provided direct education on what a rhyming words is and is not. Pt worked on repeating multiple rhyming words with correct productions with aprox. 60% with cues. Previous Goal #2: Pt will repeat vc, cv, cvc and cvcv words with 80% acc given up to min cues during 3 sessions Goal 2 Status: Not targeted over the last 10 sessions due to prioritizing other goals. Will continue to target in future sessions. Previous Goal #3: Pt will complete mod complex naming tasks including by not limited to name 3 items, categorical naming, and naming from descriptions given up to mod cues during 4/5 trials over 3 sessions. Goal 3 Status: Goal Progressing: Temperature: 7/10 I, increased to 9/10 C. [place] - randomized: 5/7 I (or self corrected), increased to 7/7 cued Previous Goal #4: Pt will verbalize his personal information with up to min cues over 3 measured sessions. Goal 4 Status: Goal Progressing: Pt was tasked with stating his personal Information with an alphabet/number board available to him. Pt's accuracy is show below, see code barrientos: Code (I = Independent, C = with Cues, N = not able) - his first name: I - his last name: C - Legal Name: I - ([birth year]): I - year: I - Age (87): C - City ([place]): C - State ([place]): I Pt generally required mod cues to complete this task. Previous Goal #5: Pt will utilize total communication to ask effectively questions during conversation during 2/3 opporunties with up to mod cues over 3 sessions. Goal 5 Status: Goal MET: Weather Related Questions) 2/2 C /3 with up to mod cues to repair Goals 6-10 Previous Goal #6: Pt will utilize total communication to answer yes/no and WH questions during conversation during 2/3 opportunities with up to one visual/written (written question or picture) support over 3 sessions. Goal 6 Status: Goal MET: / with cues from written support when needed Previous Goal #7: Pt will name common objects when presented with a picture with up to mod cues with 60% acc over 3 measured sessions. Goal 7 Status: Goal Progressin-2 syllable common words: 7, increased to 14/25 (written word provided), increased to /25 with verbal and visual cues. Previous Goal #8: Pt will utilize total communication and up to mod cues to role play communication scenarios to improve pt's ability complete ADLS over 3 measured sessions. Goal 8 Status: Goal Progressing: Weather: questions) 1/2, increased to 2/2 cued Descriptions: 14 I, increased to / with min cues Temps: 8/10 I, increased to 9/10 cued [employer] - Questions) 1/2 I, 2/2C - Food: 05/02 I, 07/30 C - Other: 06/28 I Grocery Store: - greeting: I - Help: / I, 2 C - Food: 05/04 I, 09/01 C - Check out: all I Reference: Neuro-QoL instrument Radiation Oncology Patient Plan Plan Plan: Will recommend Pt for weekly outpatient speech therapy intervention address severe expressive aphasia and receptive. Pt would benefit from verbal and visual modeling, verbal/visual cues, repeated practice, speech intelligibility strategies, circumlocution training, and immediate feedback to improve awareness of deficit and communication. Without skilled intervention Pt is at risk for difficulty communicating basic, medical, emergent, social wants & needs, and interacting with family/friends at home, and during social interactions. Pt and his will be going to [place] for the winter and he will continue with Teletherapy Recommendations MBS: No Treatment Warranted: Yes Treatment Warranted: Receptive/ Expressive Language Progress Prognosis: Good Frequency Frequency: 1-2x /Week Duration: 4-6 Months Goals that are Established Determination:: Goals will be added/modified as deemed necessary and appropriate. Therapy will be discontinued when results of re-evaluation indicate therapy is no longer needed or lack of progress has been documented. Goal #1-5 Goal #1: During structured, ST led tasks, Pt will identify rhyming words independently with 80% acc over 3 sessions to work towards completing phonetic component analysis Goal #2: Pt will repeat vc, cv, cvc and cvcv words with 80% acc given up to min cues during 3 sessions Goal #3: Pt will complete mod complex naming tasks including by not limited to name 3 items, categorical naming, and naming from descriptions given up to mod cues during 4/5 trials over 3 sessions. Goal #4: Pt will verbalize his personal information with up to min cues over 3 measured sessions. Goal #5: Pt will listen to a verbally presented noun, adj and/or verb and select the corresponding picture from a choice of 6 with 80% acc over 3 measured sessions. Goal #6-10 Goal #6: Pt will read a phrase and select the corresponding word to complete the phrase with 80% acc over 3 measured sessions. Goal #7: Pt will name common objects when presented with a picture with up to mod cues with 60% acc over 3 measured sessions. Goal #8: Pt will utilize total communication and up to mod cues to role play communication scenarios to improve pt's ability complete ADLS over 3 measured sessions. Goal #9: Pt will utilize total communication to repair communication breakdown during conversation with up to mod cues over 3 measured sessions.
== END 2023-08-16 10:05 | disposition home or self-care (01) ==
LOC: SP 08:30
PROVIDERS: PCP Nurse Practitioner Family; Visit Provider Nurse Practitioner Family
DX: Z86.73 Personal history of transient ischemic attack (TIA), and cerebral infarction without residual deficits (principal); R47.01 Aphasia
CPT/HCPCS: 92507

== ENCOUNTER 2023-11-10 09:00 | Outpatient (RCR) | payer MEDICARE, BC, SELFPAY ==
--- NOTE | 2023-09-26 14:29 | HP.SP.REEV ---
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 Worked on repeating the words after Previous Goal #2: Pt will repeat vc, cv, cvc and cvcv words with 80% acc given up to min cues during 3 sessions Goal 2 Status: Goal Progressing: cvcv: , increased to cued Previous Goal #3: Pt will complete mod complex naming tasks including by not limited to name 3 items, categorical naming, and naming from descriptions given up to mod cues during 4/5 trials over 3 sessions. Goal 3 Status: Goal Progressing: Naming a state with the aid of an aac map when given 3 cues Pt used the map to answer x3/5. Pt attempted to verbally answer and was cued to use the map for repair. Pt repeated 15 common phrases with up to mod cues. Previous Goal #4: Pt will verbalize his personal information with up to min cues over 3 measured sessions. Goal 4 Status: Goal Progressing: First Name: I Last Name: I Legal Name: C age: C (typed and repeated) : 39 - repeated and typed Frank: I [place]: I Street: repeated each part with max cues & worked on typing Previous Goal #5: Pt will listen to a verbally presented noun, adj and/or verb and select the corresponding picture from a choice of 6 with 80% acc over 3 measured sessions. Goal 5 Status: Goal Partially Met: Listening Comp, choice of 6, medium, adj: 80% acc I Goals 6-10 Previous Goal #6: Pt will read a phrase and select the corresponding word to complete the phrase with 80% acc over 3 measured sessions. Goal 6 Status: Goal Progressing: Pt selected a phrase from a choice of 4 that matches a picture with 70% acc I, increased to 100% acc with cues Previous Goal #7: Pt will name common objects when presented with a picture with up to mod cues with 60% acc over 3 measured sessions. Goal 7 Status: Goal Progressing: Naming common objects) - body parts (1-2 syllables): 40% acc, increased to 80% acc with the ww and 100% acc with ww + verbal cues - clothes (1-2 syllables) 20% acc, increased to 70% with ww and 90% with ww + verbal cues - 50% acc (1-2 syllables) 50% acc, increased to 80% with ww and 100% acc with ww + verbal cues Previous Goal #8: Pt will utilize total communication and up to mod cues to role play communication scenarios to improve pt's ability complete ADLS over 3 measured sessions. Goal 8 Status: Goal Partially Met: Practiced common phrases with up to mod cues. Plan to make a list to practice to help improve qol during daily conversation. Previous Goal #9: Pt will utilize total communication to repair communication breakdown during conversation with up to mod cues over 3 measured sessions. Goal 9 Status: Goal Progressing: Pt utilized spelling as a repair technique. Pt spelled 5-letter words on the easy level (only selecting from the letters of the word) with 60% acc I, increasing to 100% with cues. Pt spelled 5-lette words at the hard level (full keyboard) with 60% accuracy I, increasing to 70% with only the letters of the word, increasing to 100% accuracy with cues Reference: Neuro-QoL instrument Radiation Oncology Patient Plan Plan Plan: Will recommend Pt for weekly outpatient speech therapy intervention address severe expressive aphasia and receptive. Pt would benefit from verbal and visual modeling, verbal/visual cues, repeated practice, speech intelligibility strategies, circumlocution training, and immediate feedback to improve awareness of deficit and communication. Without skilled intervention Pt is at risk for difficulty communicating basic, medical, emergent, social wants & needs, and interacting with family/friends at home, and during social interactions. Recommendations Treatment Warranted: Yes Treatment Warranted: Receptive/ Expressive Language Progress Prognosis: Good Frequency Frequency: 1-2x /Week Duration: 2-4 Months Goals that are Established Determination:: Goals will be added/modified as deemed necessary and appropriate. Therapy will be discontinued when results of re-evaluation indicate therapy is no longer needed or lack of progress has been documented. Goal #1-5 Goal #1: Pt will utilize total communication to repair communication breakdown during conversation with up to mod cues over 3 measured sessions. Goal #2: Pt will repeat vc, cv, cvc and cvcv words with 80% acc given up to min cues during 3 sessions Goal #3: Pt will complete mod complex naming tasks including by not limited to name 3 items, categorical naming, and naming from descriptions given up to mod cues during 4/5 trials over 3 sessions. Goal #4: Pt will verbalize his personal information with up to min cues over 3 measured sessions. Goal #5: Pt will listen to a verbally presented noun, adj and/or verb and select the corresponding picture from a choice of 6 with 80% acc over 3 measured sessions. Goal #6-10 Goal #6: Pt will read a phrase and select the corresponding word to complete the phrase with 80% acc over 3 measured sessions. Goal #7: Pt will name common objects when presented with a picture with up to mod cues with 60% acc over 3 measured sessions. Goal #8: Pt will utilize total communication and up to mod cues to role play communication scenarios to improve pt's ability complete ADLS over 3 measured sessions.
== END 2023-11-10 19:00 | disposition home or self-care (01) ==
LOC: SP 09:00
PROVIDERS: PCP Nurse Practitioner Family; Referring Provider Nurse Practitioner Family; Visit Provider Nurse Practitioner Family
DX: Z86.73 Personal history of transient ischemic attack (TIA), and cerebral infarction without residual deficits (principal); F80.1 Expressive language disorder
CPT/HCPCS: 92507